=== PATIENT | male | born 1960 | race American Indian/Alaskan Native ===

== ENCOUNTER 2017-02-18 18:20 | Inpatient (IN) | payer MEDICAID ==
[2017-02-18 19:02] LABS: BASO # 0.1 K/uL (0.0-0.2); BASO % 0.7 % (0.0-2.0); EOS # 0.1 K/uL (0.0-0.7); EOS % 1.6 % (0.0-4.0); HEMATOCRIT 36.4 % (35.0-51.0); LYMPH # 1.4 K/uL (1.0-4.3); MEAN CELL VOLUME 94.1 fL (80.0-94.0); MEAN CORPUSCULAR HEMOGLOBIN 31.6 pg (27.0-31.0); MEAN CORPUSCULAR HGB CONC 33.6 g/dL (33.0-37.0); MEAN PLATELET VOLUME 9.3 fL (7.2-11.7); MONO # 0.5 K/uL (0.0-0.8); MONO % 5.9 % (0.0-10.0); NRBC % 0.1 % (0.0-2.0); RED CELL DISTRIBUTION WIDTH 13.7 % (11.5-14.5); WHITE BLOOD COUNT 9.2 K/uL (4.8-10.8)
[2017-02-18 19:12] LABS: ALKALINE PHOSPHATASE 28 U/L (38-126); ALT/SGPT 42 U/L (21-72); AST/SGOT 52 U/L (17-59); BILIRUBIN,TOTAL 2.1 mg/dL (0.2-1.3); CALCIUM 7.9 mg/dl (8.6-10.4); CARBON DIOXIDE 25 mmol/L (22-30); CHLORIDE 102 mmol/L (98-107); GFR AFRICAN-AMERICAN > 60; GLUCOSE,RANDOM 93 mg/dL (75-110); POTASSIUM 4.2 mmol/L (3.6-5.2); SODIUM 131 mmol/L (132-148)
[2017-02-18 19:23] LABS: ALB/GLOB RATIO 1.3 (1.0-2.1); BLOOD UREA NITROGEN 19 mg/dL (9-20)
--- NOTE | 2017-02-18 21:15 | C.PDOC ---
Time Seen by Provider: 02/18/17 18:42 Chief Complaint (Nursing): Chest Pain History Per: Patient, EMS Onset/Duration Of Symptoms: Hrs (1) Current Symptoms Are (Timing): Still Present Severity: Moderate Quality: Pressure, "Pain" Associated Symptoms: Dyspnea Modifying Factors: Other Indicated Below Alleviating Factors: None Recent travel outside of the [place]: No (Pt is visiting from [place]) Additional History Per: Prior Records Past Medical History Reviewed: Historical Data, Nursing Documentation, Vital Signs Vital Signs: Last Vital Signs Temp 97.8 F 02/18/17 18:31 Pulse 90 02/18/17 20:45 Resp 20 02/18/17 20:45 BP 93/53 L 02/18/17 20:45 Pulse Ox 100 02/18/17 20:45 - Medical History PMH: Asthma, Bipolar Disorder, Bronchitis, CHF (with low EF), COPD, HTN, Hypercholesterolemia Surgical History: Pacemaker (AICD) Family History: States: Unknown Family Hx - Social History Hx Tobacco Use: No (Quit) Hx Alcohol Use: No Hx Substance Use: No - Immunization History Hx Tetanus Toxoid Vaccination: No Hx Influenza Vaccination: No Hx Pneumococcal Vaccination: No Review Of Systems Except As Marked, All Systems Reviewed And Found Negative. Constitutional: Negative for: Fever Cardiovascular: Positive for: Chest Pain Respiratory: Positive for: Shortness of Breath. Negative for: Hemoptysis Gastrointestinal: Negative for: Vomiting, Abdominal Pain Musculoskeletal: Negative for: Neck Pain, Leg Pain Skin: Negative for: Rash Neurological: Negative for: Weakness, Numbness Physical Exam - Physical Exam Appears: Chronically Ill Skin: Normal Color, Warm, Dry Head: Atraumatic, Normacephalic Eye(s): bilateral: PERRL, EOMI Neck: Normal ROM, Supple Cardiovascular: Rhythm Regular Respiratory: No Accessory Muscle Use, Rales (at bases) Extremity: Normal ROM, No Calf Tenderness Neurological/Psych: Oriented x3, Normal Motor, Normal Sensation ED Course And Treatment - Laboratory Results Result Diagrams: 02/18/17 18:55 02/18/17 18:55 Interpretation Of Abnormal: Elevated BNP ECG: Interpreted By Me, Viewed By Me ECG Rhythm: Sinus Rhythm, Nonspecific Changes Rate From EC O2 Sat by Pulse Oximetry: 100 Pulse Ox Interpretation: Normal - Radiology CXR: Interpreted by Me, Viewed By Me CXR Interpretation: Yes: Cardiomegaly Progress Note: Pt is borderline hypotensive in the ED. I sent the EKG for review by Dr. Scott (Code Heart boilermaker assembly and erection), he states no STEMI. Pt was evaluated by Family Law Specialist Dr. Mcmillan in the ED and admitted to ICU. - Physician Consult Information Physician Contacted: Elo Hay (Cardio) Outcome Of Conversation: He states admit to ICU. He does not recommend starting pt on Digoxin. Progress - Interventions Interventions:: Observation, Oxygen - Medications Administered Oral: Aspirin (taken by pt prior to arrival) - Data Reviewed Data Reviewed: Lab, Diagnostic imaging, EKG, Old records - Patient Status Patient status: Unchanged - Continuity of Care Discussed patient case with:: Patient, ED Nurse, On-call PMD-pt unassigned Discussed pt. case with sharepoint consultant/specialty: Cardiology, Pulmonary/Crit. Care - Patient Plan Patient Plan: Admission, ICU Disposition Discussed With DrTashia: Rosio Reardon Comment: She accepted pt on her service. Doctor Will See Patient In The: Hospital Counseled Patient/Family Regarding: Studies Performed, Diagnosis - Disposition Disposition: HOSPITALIZED Disposition Time: 21:00 Condition: GUARDED - Clinical Impression Clinical Impression: Chest pain, Hypotension, CHF (congestive heart failure)
--- NOTE | 2017-02-18 21:17 | CP.PCM.CON ---
History of Present Illness - History of Present Illness History of Present Illness: Attending: Rosio Reardon MD Reason for Consult: Critical care management Chief Complaint: Left Chest Pain The patient was seen and examined in the ED. No family was present HPI: 56 years old male from [place] who came to [place] 2 days. He Has hx of CHF. and Low EF. He comes to the ED with a 2 hours of sudden unset of upper left chest pain radiating to the left arm. The pain is continuous and was not associated with vomiting nor diaphoresis. He also refers that prior to the chest pain, he had a sudden sharp mid back pain that is still present.He did suffer some nausea and diarrhea on the day of admission. No palpitation, nor hx of trauma. PMH: Asthma, Bipolar Disorder, Bronchitis, CHF (with low EF), COPD, HTN, HLD; Low blood pressures PSH: AICD insertion; L4-5 surgery; Rods in left leg post fracture SH: Former Smoker Quit 6 months; Quit Alcohol ingestion one year ago; He is on Disability and is visiting his family here in [place] FH: States: Unknown family hx Allergies: NKDA Medication: Reviewed Review of Systems - Constitutional Constitutional: absent: Anorexia, Fatigue, Fever, Headache - EENT Eyes: Requires Corrective Lenses. absent: Diplopia, Floaters, Sees Flashes Ears: absent: Decreased Hearing, Ear Discharge, Tinnitus Nose/Mouth/Throat: absent: Epistaxis, Nasal Congestion, Nasal Discharge, Sinus Pain, Sinus Pressure - Cardiovascular Cardiovascular: Dyspnea. absent: Chest Pain, Edema - Respiratory Respiratory: Dyspnea on Exertion. absent: Cough, Wheezing - Gastrointestinal Gastrointestinal: Diarrhea, Nausea. absent: Constipation, Vomiting - Genitourinary Genitourinary: absent: Dysuria, Flank Pain, Hematuria, Urinary Frequency - Musculoskeletal Musculoskeletal: Back Pain. absent: Myalgias, Numbness - Integumentary Integumentary: absent: Pruritus, Rash, Skin Ulcer, Sores, Striae, Swelling - Neurological Neurological: absent: Confusion, Numbness, Focal Weakness, Weakness - Psychiatric Psychiatric: absent: Anxiety, Panic Attacks Additional comments: Bipolar - Endocrine Endocrine: absent: Palpitations, Polydipsia, Polyphagia, Polyuria - Hematologic/Lymphatic Hematologic: absent: Easy Bleeding, Easy Bruising Past Patient History - Past Medical History & Family History Past Medical History?: Yes - Past Social History Smoking Status: Former Smoker Chewing Tobacco Use: No Cigar Use: No Alcohol: None Home Situation {Lives}: With Family - CARDIAC Hx Congestive Heart Failure: Yes (with low EF) Hx Hypercholesterolemia: Yes Hx Hypertension: Yes Hx Pacemaker: Yes (AICD) - PULMONARY Hx Asthma: Yes Hx Bronchitis: Yes Hx Chronic Obstructive Pulmonary Disease (COPD): Yes - NEUROLOGICAL Hx Neurological Disorder: No - HEENT Hx HEENT Problems: No - RENAL Hx Chronic Kidney Disease: No - HEMATOLOGICAL/ONCOLOGICAL Hx Blood Disorders: No - INTEGUMENTARY Hx Dermatological Problems: No - MUSCULOSKELETAL/RHEUMATOLOGICAL Hx Musculoskeletal Disorders: No - GASTROINTESTINAL Hx Gastrointestinal Disorders: No - GENITOURINARY/GYNECOLOGICAL Hx Genitourinary Disorders: No - PSYCHIATRIC Hx Bipolar Disorder: Yes Hx Substance Use: No - SURGICAL HISTORY Hx Surgeries: Yes Hx Orthopedic Surgery: Yes (RIGHT LEG) Other/Comment: PACEMAKER/DEFIB INSERTION - ANESTHESIA Hx Anesthesia: Yes Hx Anesthesia Reactions: No Meds Allergies/Adverse Reactions: Allergies Allergy/AdvReac Type Severity Reaction Status Date / Time No Known Allergies Allergy Verified 02/18/17 18:37 Physical Exam - Constitutional Appears: No Acute Distress - Head Exam Head Exam: ATRAUMATIC, NORMAL INSPECTION, NORMOCEPHALIC - Eye Exam Eye Exam: EOMI, Normal appearance Pupil Exam: NORMAL ACCOMODATION, PERRL - ENT Exam ENT Exam: Mucous Membranes Moist, Normal Exam, Normal External Ear Exam - Neck Exam Neck exam: Positive for: Full Rom, Normal Inspection. Negative for: Lymphadenopathy, Tenderness - Respiratory Exam Additional comments: Fine inspiratory rales at both bases, left more than right. - Cardiovascular Exam Cardiovascular Exam: REGULAR RHYTHM, +S1, +S2. absent: Gallop - GI/Abdominal Exam GI & Abdominal Exam: Normal Bowel Sounds, Soft. absent: Mass, Organomegaly, Tenderness - Rectal Exam Rectal Exam: Deferred - Extremities Exam Extremities exam: Positive for: full ROM, normal inspection. Negative for: calf tenderness, joint swelling, pedal edema - Back Exam Back exam: CVA tenderness (L), CVA tenderness (R), NORMAL INSPECTION - Neurological Exam Neurological exam: Alert, CN II-XII Intact, Oriented x3, Reflexes Normal - Psychiatric Exam Psychiatric exam: Normal Affect, Normal Mood - Skin Skin Exam: Intact, Normal Color, Warm Results - Vital Signs Recent Vital Signs: Last Vital Signs Temp 97.8 F 02/18/17 18:31 Pulse 90 02/18/17 20:45 Resp 20 02/18/17 20:45 BP 93/53 L 02/18/17 20:45 Pulse Ox 100 02/18/17 21:15 - Labs Result Diagrams: 02/18/17 18:55 02/18/17 18:55 Labs: Laboratory Results - last 24 hr 02/18/17 02/18/17 02/18/17 18:55 18:55 18:55 WBC 9.2 RBC 3.87 L Hgb 12.2 Hct 36.4 MCV 94.1 H MCH 31.6 H MCHC 33.6 RDW 13.7 Plt Count 161 MPV 9.3 Neut % (Auto) 76.8 H Lymph % (Auto) 15.0 L Stephenson % (Auto) 5.9 Eos % (Auto) 1.6 Baso % (Auto) 0.7 Neut # 7.0 Lymph # 1.4 Stephenson # 0.5 Eos # 0.1 Baso # 0.1 PT 11.6 INR 1.0 APTT 32 Sodium 131 L Potassium 4.2 Chloride 102 Carbon Dioxide 25 Anion Gap 9 L BUN 19 Creatinine 0.9 Est GFR ( Amer) > 60 Est GFR (Non-Af Amer) > 60 Random Glucose 93 Calcium 7.9 L Total Bilirubin 2.1 H AST 52 ALT 42 Alkaline Phosphatase 28 L Total Creatine Kinase 62 CK-MB (Mass) 1.06 Troponin I 0.0410 NT-Pro-B Natriuret Pep 2200 H Total Protein 6.0 L Albumin 3.4 L Globulin 2.6 Albumin/Globulin Ratio 1.3 Digoxin 02/18/17 18:55 WBC RBC Hgb Hct MCV MCH MCHC RDW Plt Count MPV Neut % (Auto) Lymph % (Auto) Stephenson % (Auto) Eos % (Auto) Baso % (Auto) Neut # Lymph # Stephenson # Eos # Baso # PT INR APTT Sodium Potassium Chloride Carbon Dioxide Anion Gap BUN Creatinine Est GFR ( Amer) Est GFR (Non-Af Amer) Random Glucose Calcium Total Bilirubin AST ALT Alkaline Phosphatase Total Creatine Kinase CK-MB (Mass) Troponin I NT-Pro-B Natriuret Pep Total Protein Albumin Globulin Albumin/Globulin Ratio Digoxin < 0.4 L - Impressions Impression: Sinus rhythm, 63/min - Imaging and Cardiology Chest x-ray Status: Image reviewed by me Additional comment: No infiltrate with mild cephalization Assessment & Plan - Assessment and Plan (Free Text) Assessment: #. Chest Pain #. CHF #. Hypotension #. Anemia Plan: 56 years old male from [place] who came to [place] 2 days. He Has hx of CHF. and Low EF. He comes to the ED with a 2 hours of sudden unset of upper left chest pain radiating to the left arm. The pain is continuous and was not associated with vomiting nor diaphoresis. He also refers that prior to the chest pain, he had a sudden sharp mid back pain that is still present.He did suffer some nausea and diarrhea on the day of admission. No palpitation, nor hx of trauma. #. Chest Pain which could due to ACS as patient said that he had 2 cardio cath, the first had some blockages in the coronary artery while the second time, the Cath was without significant stenosis We will r/o ACS and also r/o Aortic Dissection because of the sharp back pain and low blood pressure. - Consult Dr Hay associate professor of education - Serial Troponin - Serial EKG - ECHO for wall motion - CTA Chest - ASA - Statin - NTG #. Chronic CHF Systolic dysfunction - ECHO for EF and Chamber size - Coreg - Lisinopril - Hold Bumex #. Hypotension probably because of poor cardiac output - If needed Dobutamine would be started #. Anemia - Follow HB #. Diarrhea - Stool for C Diff - Stool for culture #. DVT Prophylaxis SCD /lovenox #. Code Status: Full - Date & Time Date: 02/18/17 Time: 21:17
[2017-02-18] MEDS ORDERED: Iodixanol 320 MG/ML 100 ML BOTTLE IV ONE (23:10)
--- NOTE | 2017-02-19 00:25 | CT ---
EXAM: CT Chest With Intravenous Contrast CLINICAL HISTORY: 56 years old, male; Pain; Chest pain; Type not specified; Additional info: Back and chest pain TECHNIQUE: Axial computed tomography images of the chest with intravenous contrast. All CT scans at this facility use one or more dose reduction techniques, viz.: automated exposure control; ma/kV adjustment per patient size (including targeted exams where dose is matched to indication; i.e. head); or iterative reconstruction technique. Coronal and sagittal reformatted images were created and reviewed. CONTRAST: 100 mL of [id number] administered intravenously. COMPARISON: No relevant prior studies available. FINDINGS: Limitations: Motion artifact - mild. Lungs: Mild compressive atelectasis right lower lobe. Mild mosaic pattern of lung parenchyma. Mild interlobular septal thickening. Pleural space: Small RIGHT pleural effusion. No pneumothorax. Heart: Mild cardiomegaly. No significant pericardial effusion. Bones/joints: Healed right rib fracture. Soft tissues: Unremarkable. Vasculature: Minimal atherosclerotic disease. No aneurysm. Lymph nodes: No pathologically enlarged lymph nodes. Gallbladder and bile ducts: Calcified gallstones. Adrenals: LEFT adrenal adenoma. Tubes, lines and devices: Left pacemaker IMPRESSION: 1. Findings compatible with mild interstitial edema. Clinical correlation is needed. 2. Incidental/non-acute findings are described above.
[2017-02-19] MEDS: Albuterol 0.083% Inhal Sol (2.5 mg/3 mL) UD INH PRN ×2 (04:20→11:40)
[2017-02-19 07:03] LABS: BASO % 0.6 % (0.0-2.0); EOS # 0.2 K/uL (0.0-0.7); EOS % 2.3 % (0.0-4.0); HEMATOCRIT 33.9 % (35.0-51.0); LYMPH # 1.3 K/uL (1.0-4.3); LYMPH % 16.9 % (20.0-40.0); MEAN CELL VOLUME 96.2 fL (80.0-94.0); MEAN CORPUSCULAR HEMOGLOBIN 32.5 pg (27.0-31.0); MEAN CORPUSCULAR HGB CONC 33.8 g/dL (33.0-37.0); MEAN PLATELET VOLUME 9.6 fL (7.2-11.7); MONO # 0.5 K/uL (0.0-0.8); MONO % 6.2 % (0.0-10.0); RED CELL DISTRIBUTION WIDTH 13.7 % (11.5-14.5)
[2017-02-19 07:19] LABS: ALB/GLOB RATIO 1.2 (1.0-2.1); ALKALINE PHOSPHATASE 26 U/L (38-126); ALT/SGPT 42 U/L (21-72); AST/SGOT 31 U/L (17-59); BILIRUBIN,TOTAL 1.6 mg/dL (0.2-1.3); BLOOD UREA NITROGEN 16 mg/dL (9-20); CALCIUM 7.9 mg/dl (8.6-10.4); CARBON DIOXIDE 25 mmol/L (22-30); CHLORIDE 100 mmol/L (98-107); GFR AFRICAN-AMERICAN > 60; GLUCOSE,RANDOM 124 mg/dL (75-110); MAGNESIUM 1.8 mg/dL (1.6-2.3); PHOSPHOROUS 3.4 mg/dL (2.5-4.5); POTASSIUM 3.8 mmol/L (3.6-5.2); SODIUM 130 mmol/L (132-148); TOTAL PROTEIN 5.6 g/dL (6.3-8.3)
--- NOTE | 2017-02-19 09:01 | RAD ---
PROCEDURE: CHEST RADIOGRAPH, 1 VIEW HISTORY: chest pain COMPARISON: None available. FINDINGS: LUNGS: The lungs are well inflated. There is ill-defined haziness in the right lower lobe. There is mild pulmonary venous congestion. PLEURA: No pneumothorax or pleural fluid seen. CARDIOVASCULAR: There is mild cardiomegaly. There is a left-sided AICD. OSSEOUS STRUCTURES: No significant abnormalities. VISUALIZED UPPER ABDOMEN: Normal. OTHER FINDINGS: None. IMPRESSION: Ill-defined haziness in the right lower lobe may represent pneumonia or pulmonary edema. Follow-up is advised. Mild cardiomegaly and pulmonary venous congestion.
--- NOTE | 2017-02-19 11:28 | CP.PCM.HP ---
History of Present Illness - History of Present Illness History of Present Illness: pt admited from ed for chest pain sob hx of cad s.pmi 2times chf pace maker still c/o of chest pain sob has copd also Present on Admission - Present on Admission Any Indicators Present on Admission: No Review of Systems - Review of Systems Systems not reviewed;Unavailable: Acuity of Condition, Unstable Vital Signs Review of Systems: bp was low Past Patient History - Past Medical History & Family History Past Medical History?: Yes - Past Social History Smoking Status: Former Smoker Chewing Tobacco Use: No Cigar Use: No Alcohol: None Home Situation {Lives}: With Family - CARDIAC Hx Congestive Heart Failure: Yes (with low EF) Hx Hypercholesterolemia: Yes Hx Hypertension: Yes Hx Pacemaker: Yes (AICD) - PULMONARY Hx Asthma: Yes Hx Bronchitis: Yes Hx Chronic Obstructive Pulmonary Disease (COPD): Yes - NEUROLOGICAL Hx Neurological Disorder: No - HEENT Hx HEENT Problems: No - RENAL Hx Chronic Kidney Disease: No - ENDOCRINE/METABOLIC Hx Endocrine Disorders: No - HEMATOLOGICAL/ONCOLOGICAL Hx Blood Disorders: No - INTEGUMENTARY Hx Dermatological Problems: No - MUSCULOSKELETAL/RHEUMATOLOGICAL Hx Musculoskeletal Disorders: No - GASTROINTESTINAL Hx Gastrointestinal Disorders: No - GENITOURINARY/GYNECOLOGICAL Hx Genitourinary Disorders: No - PSYCHIATRIC Hx Bipolar Disorder: Yes Hx Substance Use: No - SURGICAL HISTORY Hx Surgeries: Yes Hx Orthopedic Surgery: Yes (RIGHT LEG) Other/Comment: PACEMAKER/DEFIB INSERTION - ANESTHESIA Hx Anesthesia: Yes Hx Anesthesia Reactions: No Meds Allergies/Adverse Reactions: Allergies Allergy/AdvReac Type Severity Reaction Status Date / Time No Known Allergies Allergy Verified 02/18/17 18:37 Physical Exam - Constitutional Appears: In Acute Distress, Chronically Ill - Head Exam Head Exam: NORMOCEPHALIC - Eye Exam Eye Exam: Normal appearance Pupil Exam: NORMAL ACCOMODATION - ENT Exam ENT Exam: Mucous Membranes Moist - Neck Exam Neck exam: Positive for: Full Rom - Respiratory Exam Respiratory Exam: Decreased Breath Sounds - Cardiovascular Exam Cardiovascular Exam: Tachycardia, +S1, +S2, +S4 - GI/Abdominal Exam GI & Abdominal Exam: Normal Bowel Sounds - Rectal Exam Rectal Exam: NORMAL INSPECTION - Exam Exam: NORMAL INSPECTION - Extremities Exam Extremities exam: Positive for: normal inspection - Back Exam Back exam: NORMAL INSPECTION - Neurological Exam Neurological exam: Oriented x3 - Psychiatric Exam Psychiatric exam: Normal Affect - Skin Skin Exam: Normal Color Results - Vital Signs Recent Vital Signs: Last Vital Signs Temp 98.2 F 02/19/17 08:00 Pulse 91 H 02/19/17 11:00 Resp 20 02/19/17 11:00 BP 102/69 02/19/17 11:00 Pulse Ox 99 02/19/17 11:00 - Labs Result Diagrams: 02/19/17 06:50 02/19/17 06:52 Labs: Laboratory Results - last 24 hr 02/18/17 02/18/17 02/18/17 18:55 18:55 18:55 WBC 9.2 RBC 3.87 L Hgb 12.2 Hct 36.4 MCV 94.1 H MCH 31.6 H MCHC 33.6 RDW 13.7 Plt Count 161 MPV 9.3 Neut % (Auto) 76.8 H Lymph % (Auto) 15.0 L Gilliam % (Auto) 5.9 Eos % (Auto) 1.6 Baso % (Auto) 0.7 Neut # 7.0 Lymph # 1.4 Gilliam # 0.5 Eos # 0.1 Baso # 0.1 PT 11.6 INR 1.0 APTT 32 Sodium 131 L Potassium 4.2 Chloride 102 Carbon Dioxide 25 Anion Gap 9 L BUN 19 Creatinine 0.9 Est GFR ( Amer) > 60 Est GFR (Non-Af Amer) > 60 Random Glucose 93 Calcium 7.9 L Phosphorus Magnesium Total Bilirubin 2.1 H AST 52 ALT 42 Alkaline Phosphatase 28 L Total Creatine Kinase 62 CK-MB (Mass) 1.06 Troponin I 0.0410 NT-Pro-B Natriuret Pep 2200 H Total Protein 6.0 L Albumin 3.4 L Globulin 2.6 Albumin/Globulin Ratio 1.3 Digoxin 02/18/17 02/19/17 02/19/17 18:55 06:50 06:52 WBC 8.0 RBC 3.53 L Hgb 11.5 L Hct 33.9 L MCV 96.2 H D MCH 32.5 H MCHC 33.8 RDW 13.7 Plt Count 150 MPV 9.6 Neut % (Auto) 74.0 Lymph % (Auto) 16.9 L Gilliam % (Auto) 6.2 Eos % (Auto) 2.3 Baso % (Auto) 0.6 Neut # 5.9 Lymph # 1.3 Gilliam # 0.5 Eos # 0.2 Baso # 0.0 PT INR APTT Sodium 130 L Potassium 3.8 Chloride 100 Carbon Dioxide 25 Anion Gap 9 L BUN 16 Creatinine 0.8 Est GFR ( Amer) > 60 Est GFR (Non-Af Amer) > 60 Random Glucose 124 H Calcium 7.9 L Phosphorus 3.4 Magnesium 1.8 Total Bilirubin 1.6 H AST 31 ALT 42 Alkaline Phosphatase 26 L Total Creatine Kinase CK-MB (Mass) Troponin I 0.0370 NT-Pro-B Natriuret Pep Total Protein 5.6 L Albumin 3.1 L Globulin 2.5 Albumin/Globulin Ratio 1.2 Digoxin < 0.4 L Assessment & Plan - Assessment and Plan (Free Text) Assessment: ac chest pain cad ashd copd pace maked hyperglyceamia copd Plan: as per orders - Date & Time Date: 02/19/17 Time: 11:30
--- NOTE | 2017-02-19 16:11 | CP.CCUPN ---
CCU Subjective - Physician Review Events Since Last Encounter (Free Text): 02/19/17 16:11 Patient is monitoring doing well. Complaining of mild chest discomfort. Pain is radiating to the left shoulder, sometimes in the back. Blood pressure is slightly on the low side. He has no vomiting. Otherwise patient is doing okay Vital signs reviewed No neck vein distention noted Chest good air entry bilaterally, no wheezing or rales noted CVS regular heart sound, no murmur noted Abdomen soft, nontender. 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 Most likely nonspecific. Non-ST elevation AK. Congestive heart failure. Glucose monitor today. If likely stable, He can be discharged to the floor tomorrow CCU Objective - Vital Signs / Intake & Output Vital Signs (Last 4 hours): Vital Signs Pulse Resp BP Pulse Ox 02/19/17 15:00 88 20 108/60 96 02/19/17 14:00 89 20 94/67 L 98 02/19/17 13:00 91 H 20 99/72 L 98 Intake and Output (Last 8hrs): Intake & Output 02/19/17 02/19/17 02/19/17 06:59 14:59 22:59 Intake Total 750 325 0 Output Total 450 850 Balance 300 -525 0 Weight 169 lb 4 oz Intake: Oral 750 325 0 Output: Urine 450 850 Urine, Voided 450 850 Other: # Bowel Movements 0 - Medications Active Medications: Active Medications Generic Name Dose Route Start Last Admin Trade Name Freq PRN Reason Stop Dose Admin Albuterol Sulfate 2.5 mg 02/18/17 21:35 02/19/17 11:40 Albuterol 0.083% Inhal Alisha (2.5 Mg/3 Ml) Ud INH 2.5 mg Q6H PRN Administration Shortness of Breath Aspirin 81 mg 02/19/17 10:00 02/19/17 09:28 Ecotrin PO 81 mg DAILY BHANU Administration Carvedilol 6.25 mg 02/19/17 10:00 02/19/17 09:26 Coreg PO Not Given BID BHANU Folic Acid 1 mg 02/19/17 10:00 02/19/17 09:28 Folic Acid PO 1 mg DAILY BHANU Administration Lisinopril 2.5 mg 02/19/17 10:00 02/19/17 09:26 Zestril PO Not Given DAILY [facility] Morphine Sulfate 2 mg 02/19/17 09:32 02/19/17 10:35 Morphine IVP 2 mg Q6 PRN Administration Pain, moderate (4-7) Nitroglycerin 0.4 mg 02/18/17 23:39 02/19/17 15:13 Nitrostat Sl Tab SL 0.4 mg Q5M PRN Administration Other Ondansetron HCl 4 mg 02/18/17 21:50 Zofran Inj IVP Q4 PRN Nausea/Vomiting Rosuvastatin Calcium 10 mg 02/19/17 22:00 Crestor PO HS [facility] - Patient Studies Lab Studies: Lab Studies 02/19/17 02/19/17 02/18/17 Range/Units 06:52 06:50 18:55 WBC 8.0 (4.8-10.8) K/uL RBC 3.53 L (4.40-5.90) Mil/uL Hgb 11.5 L (12.0-18.0) g/dL Hct 33.9 L (35.0-51.0) % MCV 96.2 H D (80.0-94.0) fL MCH 32.5 H (27.0-31.0) pg MCHC 33.8 (33.0-37.0) g/dL RDW 13.7 (11.5-14.5) % Plt Count 150 (130-400) K/uL MPV 9.6 (7.2-11.7) fL Neut % (Auto) 74.0 (50.0-75.0) % Lymph % (Auto) 16.9 L (20.0-40.0) % [place] % (Auto) 6.2 (0.0-10.0) % Eos % (Auto) 2.3 (0.0-4.0) % Baso % (Auto) 0.6 (0.0-2.0) % Neut # 5.9 (1.8-7.0) K/uL Lymph # 1.3 (1.0-4.3) K/uL [place] # 0.5 (0.0-0.8) K/uL Eos # 0.2 (0.0-0.7) K/uL Baso # 0.0 (0.0-0.2) K/uL PT (9.7-12.2) SECONDS INR APTT (21-34) SECONDS Sodium 130 L (132-148) mmol/L Potassium 3.8 (3.6-5.2) mmol/L Chloride 100 (98-107) mmol/L Carbon Dioxide 25 (22-30) mmol/L Anion Gap 9 L (10-20) BUN 16 (9-20) mg/dL Creatinine 0.8 (0.8-1.5) mg/dL Est GFR ( Amer) > 60 Est GFR (Non-Af Amer) > 60 Random Glucose 124 H (75-110) mg/dL Calcium 7.9 L (8.6-10.4) mg/dl Phosphorus 3.4 (2.5-4.5) mg/dL Magnesium 1.8 (1.6-2.3) mg/dL Total Bilirubin 1.6 H (0.2-1.3) mg/dL AST 31 (17-59) U/L ALT 42 (21-72) U/L Alkaline Phosphatase 26 L (38-126) U/L Total Creatine Kinase (55-170) U/L CK-MB (Mass) (0.0-3.38) ng/mL Troponin I 0.0370 (0.00-0.120) ng/mL NT-Pro-B Natriuret Pep (0-900) pg/mL Total Protein 5.6 L (6.3-8.3) g/dL Albumin 3.1 L (3.5-5.0) g/dL Globulin 2.5 (2.2-3.9) gm/dL Albumin/Globulin Ratio 1.2 (1.0-2.1) Digoxin < 0.4 L (0.8-2.0) ng/mL 02/18/17 02/18/17 02/18/17 Range/Units 18:55 18:55 18:55 WBC 9.2 (4.8-10.8) K/uL RBC 3.87 L (4.40-5.90) Mil/uL Hgb 12.2 (12.0-18.0) g/dL Hct 36.4 (35.0-51.0) % MCV 94.1 H (80.0-94.0) fL MCH 31.6 H (27.0-31.0) pg MCHC 33.6 (33.0-37.0) g/dL RDW 13.7 (11.5-14.5) % Plt Count 161 (130-400) K/uL MPV 9.3 (7.2-11.7) fL Neut % (Auto) 76.8 H (50.0-75.0) % Lymph % (Auto) 15.0 L (20.0-40.0) % [place] % (Auto) 5.9 (0.0-10.0) % Eos % (Auto) 1.6 (0.0-4.0) % Baso % (Auto) 0.7 (0.0-2.0) % Neut # 7.0 (1.8-7.0) K/uL Lymph # 1.4 (1.0-4.3) K/uL [place] # 0.5 (0.0-0.8) K/uL Eos # 0.1 (0.0-0.7) K/uL Baso # 0.1 (0.0-0.2) K/uL PT 11.6 (9.7-12.2) SECONDS INR 1.0 APTT 32 (21-34) SECONDS Sodium 131 L (132-148) mmol/L Potassium 4.2 (3.6-5.2) mmol/L Chloride 102 (98-107) mmol/L Carbon Dioxide 25 (22-30) mmol/L Anion Gap 9 L (10-20) BUN 19 (9-20) mg/dL Creatinine 0.9 (0.8-1.5) mg/dL Est GFR ( Amer) > 60 Est GFR (Non-Af Amer) > 60 Random Glucose 93 (75-110) mg/dL Calcium 7.9 L (8.6-10.4) mg/dl Phosphorus (2.5-4.5) mg/dL Magnesium (1.6-2.3) mg/dL Total Bilirubin 2.1 H (0.2-1.3) mg/dL AST 52 (17-59) U/L ALT 42 (21-72) U/L Alkaline Phosphatase 28 L (38-126) U/L Total Creatine Kinase 62 (55-170) U/L CK-MB (Mass) 1.06 (0.0-3.38) ng/mL Troponin I 0.0410 (0.00-0.120) ng/mL NT-Pro-B Natriuret Pep 2200 H (0-900) pg/mL Total Protein 6.0 L (6.3-8.3) g/dL Albumin 3.4 L (3.5-5.0) g/dL Globulin 2.6 (2.2-3.9) gm/dL Albumin/Globulin Ratio 1.3 (1.0-2.1) Digoxin (0.8-2.0) ng/mL Laboratory Results - last 24 hr 02/18/17 02/18/17 02/18/17 18:55 18:55 18:55 WBC 9.2 RBC 3.87 L Hgb 12.2 Hct 36.4 MCV 94.1 H MCH 31.6 H MCHC 33.6 RDW 13.7 Plt Count 161 MPV 9.3 Neut % (Auto) 76.8 H Lymph % (Auto) 15.0 L [place] % (Auto) 5.9 Eos % (Auto) 1.6 Baso % (Auto) 0.7 Neut # 7.0 Lymph # 1.4 [place] # 0.5 Eos # 0.1 Baso # 0.1 PT 11.6 INR 1.0 APTT 32 Sodium 131 L Potassium 4.2 Chloride 102 Carbon Dioxide 25 Anion Gap 9 L BUN 19 Creatinine 0.9 Est GFR ( Amer) > 60 Est GFR (Non-Af Amer) > 60 Random Glucose 93 Calcium 7.9 L Phosphorus Magnesium Total Bilirubin 2.1 H AST 52 ALT 42 Alkaline Phosphatase 28 L Total Creatine Kinase 62 CK-MB (Mass) 1.06 Troponin I 0.0410 NT-Pro-B Natriuret Pep 2200 H Total Protein 6.0 L Albumin 3.4 L Globulin 2.6 Albumin/Globulin Ratio 1.3 Digoxin 02/18/17 02/19/17 02/19/17 18:55 06:50 06:52 WBC 8.0 RBC 3.53 L Hgb 11.5 L Hct 33.9 L MCV 96.2 H D MCH 32.5 H MCHC 33.8 RDW 13.7 Plt Count 150 MPV 9.6 Neut % (Auto) 74.0 Lymph % (Auto) 16.9 L [place] % (Auto) 6.2 Eos % (Auto) 2.3 Baso % (Auto) 0.6 Neut # 5.9 Lymph # 1.3 [place] # 0.5 Eos # 0.2 Baso # 0.0 PT INR APTT Sodium 130 L Potassium 3.8 Chloride 100 Carbon Dioxide 25 Anion Gap 9 L BUN 16 Creatinine 0.8 Est GFR ( Amer) > 60 Est GFR (Non-Af Amer) > 60 Random Glucose 124 H Calcium 7.9 L Phosphorus 3.4 Magnesium 1.8 Total Bilirubin 1.6 H AST 31 ALT 42 Alkaline Phosphatase 26 L Total Creatine Kinase CK-MB (Mass) Troponin I 0.0370 NT-Pro-B Natriuret Pep Total Protein 5.6 L Albumin 3.1 L Globulin 2.5 Albumin/Globulin Ratio 1.2 Digoxin < 0.4 L EKG/Cardiology Studies: Cardiology / EKG Studies 02/18/17 18:34 EKG [ELECTROCARDIOGRAM] Stat Comment: Mode Of Transportation: PORTABLE Reason For Exam: Chest Pain 02/18/17 21:47 EKG [ELECTROCARDIOGRAM] Stat Comment: Mode Of Transportation: PORTABLE Reason For Exam: Chest Pain 02/19/17 07:30 EKG [ELECTROCARDIOGRAM] Routine Comment: Mode Of Transportation: PORTABLE Reason For Exam: Chest pain Critical Care Progress Note - Nutrition Nutrition: Nutrition Category Date Time Status Heart Healthy Diet [DIET] Diets 02/18/17 Breakfast Active
[2017-02-19 17:27] LABS: TROPONIN I 0.03 ng/mL (0.00-0.120)
[2017-02-20] MEDS: Albuterol 0.083% Inhal Sol (2.5 mg/3 mL) UD INH PRN ×2 (01:31→23:43)
--- NOTE | 2017-02-20 11:13 | CP.PCM.PN ---
Subjective - Date & Time of Evaluation Date of Evaluation: 02/20/17 Time of Evaluation: 11:10 - Subjective Subjective: has chest pain today bp low Objective - Vital Signs/Intake and Output Vital Signs (last 24 hours): Temp Pulse Resp BP Pulse Ox 97.8 F 75 16 87/57 L 100 02/20/17 08:00 02/20/17 10:01 02/20/17 10:01 02/20/17 10:01 02/20/17 10:01 Intake and Output: 02/20/17 02/20/17 06:59 18:59 Intake Total 1410 Output Total 2400 300 Balance -990 -300 - Medications Medications: Current Medications Albuterol Sulfate (Albuterol 0.083% Inhal Alisha (2.5 Mg/3 Ml) Ud) 2.5 mg INH Q6H PRN PRN Reason: Shortness of Breath Last Admin: 02/20/17 01:31 Dose: 2.5 mg Aspirin (Ecotrin) 81 mg PO DAILY [facility] Last Admin: 02/20/17 10:27 Dose: 81 mg Carvedilol (Coreg) 6.25 mg PO BID [facility] Last Admin: 02/20/17 10:28 Dose: Not Given Folic Acid (Folic Acid) 1 mg PO DAILY [facility] Last Admin: 02/20/17 10:27 Dose: 1 mg Heparin Sodium (Porcine) (Heparin) 5,000 units SC Q12H [facility] Last Admin: 02/20/17 10:27 Dose: 5,000 units Lisinopril (Zestril) 2.5 mg PO DAILY [facility] Last Admin: 02/20/17 10:27 Dose: Not Given Morphine Sulfate (Morphine) 2 mg IVP Q6 PRN PRN Reason: Pain, moderate (4-7) Last Admin: 02/20/17 07:51 Dose: 2 mg Nitroglycerin (Nitrostat Sl Tab) 0.4 mg SL Q5M PRN PRN Reason: Other Last Admin: 02/19/17 15:13 Dose: 0.4 mg Ondansetron HCl (Zofran Inj) 4 mg IVP Q4 PRN PRN Reason: Nausea/Vomiting Rosuvastatin Calcium (Crestor) 10 mg PO HS [facility] Last Admin: 02/19/17 21:46 Dose: 10 mg - Labs Labs: 02/19/17 06:50 02/19/17 06:52 PT 11.6 SECONDS (9.7-12.2) 02/18/17 18:55 INR 1.0 02/18/17 18:55 APTT 32 SECONDS (21-34) 02/18/17 18:55 - Constitutional Appears: Non-toxic - Head Exam Head Exam: NORMAL INSPECTION - Eye Exam Eye Exam: Normal appearance Pupil Exam: NORMAL ACCOMODATION - ENT Exam ENT Exam: Normal Exam - Neck Exam Neck Exam: Full ROM - Respiratory Exam Respiratory Exam: Clear to Ausculation Bilateral - Cardiovascular Exam Cardiovascular Exam: REGULAR RHYTHM, +S1, +S2, +S4 - GI/Abdominal Exam GI & Abdominal Exam: Normal Bowel Sounds - Rectal Exam Rectal Exam: NORMAL INSPECTION - Exam Exam: NORMAL INSPECTION External exam: NORMAL EXTERNAL EXAM - Extremities Exam Extremities Exam: Normal Inspection - Back Exam Back Exam: NORMAL INSPECTION - Neurological Exam Neurological Exam: Awake, Normal Gait, Oriented x3 - Psychiatric Exam Psychiatric exam: Normal Affect - Skin Skin Exam: Normal Color Assessment and Plan - Assessment and Plan (Free Text) Assessment: chest pain cad s/p mi in the past chf ashd hypotension Plan: cont as oer orders
--- NOTE | 2017-02-20 14:23 | CP.PCM.CON ---
History of Present Illness - History of Present Illness History of Present Illness: 56 B.M WITH H/O CARDIOMYOPATHY ADMITTED WITH ATYPICAL CP WITH N TNI AND NO ACUTE CHANGES IN EKG 2 YEARS AGO CATH ; [place] ; NONSIGNIFICANT CAD WITH LV EF 15 % CA 2013 , NOT SURE OF CAD DISEASE P/E NO RALES OR MURMUR /OR GALLOP IT APPEARS PT HAS IDIOPATHIC CARDIOMYOPATHY WITH NON SIG CAD PLAN FIRST OBTAIN CATH REPORT ECHO MAY NEED IV LEXISCAN Past Patient History - Past Medical History & Family History Past Medical History?: Yes - Past Social History Smoking Status: Former Smoker Chewing Tobacco Use: No Cigar Use: No Alcohol: None Home Situation {Lives}: With Family - CARDIAC Hx Congestive Heart Failure: Yes (with low EF) Hx Hypercholesterolemia: Yes Hx Hypertension: Yes Hx Pacemaker: Yes (AICD) - PULMONARY Hx Asthma: Yes Hx Bronchitis: Yes Hx Chronic Obstructive Pulmonary Disease (COPD): Yes - NEUROLOGICAL Hx Neurological Disorder: No - HEENT Hx HEENT Problems: No - RENAL Hx Chronic Kidney Disease: No - ENDOCRINE/METABOLIC Hx Endocrine Disorders: No - HEMATOLOGICAL/ONCOLOGICAL Hx Blood Disorders: No - INTEGUMENTARY Hx Dermatological Problems: No - MUSCULOSKELETAL/RHEUMATOLOGICAL Hx Musculoskeletal Disorders: No - GASTROINTESTINAL Hx Gastrointestinal Disorders: No - GENITOURINARY/GYNECOLOGICAL Hx Genitourinary Disorders: No - PSYCHIATRIC Hx Bipolar Disorder: Yes Hx Substance Use: No - SURGICAL HISTORY Hx Surgeries: Yes Hx Orthopedic Surgery: Yes (RIGHT LEG) Other/Comment: PACEMAKER/DEFIB INSERTION - ANESTHESIA Hx Anesthesia: Yes Hx Anesthesia Reactions: No Meds Allergies/Adverse Reactions: Allergies Allergy/AdvReac Type Severity Reaction Status Date / Time No Known Allergies Allergy Verified 02/18/17 18:37 - Medications Medications: Current Medications Albuterol Sulfate (Albuterol 0.083% Inhal Alisha (2.5 Mg/3 Ml) Ud) 2.5 mg INH Q6H PRN PRN Reason: Shortness of Breath Last Admin: 02/20/17 01:31 Dose: 2.5 mg Aspirin (Ecotrin) 81 mg PO DAILY [facility] Last Admin: 02/20/17 10:27 Dose: 81 mg Carvedilol (Coreg) 6.25 mg PO BID [facility] Last Admin: 02/20/17 10:28 Dose: Not Given Folic Acid (Folic Acid) 1 mg PO DAILY [facility] Last Admin: 02/20/17 10:27 Dose: 1 mg Guaifenesin (Robitussin) 100 mg PO Q6H PRN PRN Reason: Cough Heparin Sodium (Porcine) (Heparin) 5,000 units SC Q12H [facility] Last Admin: 02/20/17 10:27 Dose: 5,000 units Lisinopril (Zestril) 2.5 mg PO DAILY [facility] Last Admin: 02/20/17 10:27 Dose: Not Given Morphine Sulfate (Morphine) 2 mg IVP Q6 PRN PRN Reason: Pain, moderate (4-7) Last Admin: 02/20/17 07:51 Dose: 2 mg Nitroglycerin (Nitrostat Sl Tab) 0.4 mg SL Q5M PRN PRN Reason: Other Last Admin: 02/19/17 15:13 Dose: 0.4 mg Ondansetron HCl (Zofran Inj) 4 mg IVP Q4 PRN PRN Reason: Nausea/Vomiting Rosuvastatin Calcium (Crestor) 10 mg PO HS [facility] Last Admin: 02/19/17 21:46 Dose: 10 mg Results - Vital Signs Recent Vital Signs: Last Vital Signs Temp 97.2 F L 02/20/17 12:00 Pulse 85 02/20/17 13:00 Resp 18 02/20/17 13:00 BP 93/66 L 02/20/17 13:00 Pulse Ox 98 02/20/17 13:00 - Labs Result Diagrams: 02/19/17 06:50 02/19/17 06:52 Labs: Laboratory Results - last 24 hr 02/19/17 17:06 Total Creatine Kinase 42 L CK-MB (Mass) 0.46 Troponin I 0.0300
[2017-02-20] MEDS: guaiFENesin 100 mg/5 ml Syrup UD PO PRN (16:25)
--- NOTE | 2017-02-20 17:25 | CP.CCUPN ---
CCU Subjective - Physician Review Events Since Last Encounter (Free Text): 02/20/17 17:25 Patient is monitoring doing well. Complaining of mild chest discomfort. Pain is radiating to the left shoulder, sometimes in the back. Blood pressure is slightly on the low side. He has no vomiting. Otherwise patient is doing okay Vital signs reviewed No neck vein distention noted Chest good air entry bilaterally, no wheezing or rales noted CVS regular heart sound, no murmur noted Abdomen soft, nontender. Extremities no pedal edema CARDIOVASCULAR TECHNOLOGIST alert awake oriented -3, no functional neurological deficit Labs reviewed Mild elevation of the troponin Patient also has a AICD Ejection fraction is on the low side Assessment and recommendation: 56 male with a history of congestive heart failure ejection fraction admitted with chest pain. Most likely nonspecific. Non-ST elevation [place]. Congestive heart failure. Glucose monitor today. CCU Objective - Vital Signs / Intake & Output Vital Signs (Last 4 hours): Vital Signs Temp Pulse Resp BP Pulse Ox 02/20/17 16:00 97.5 F L 82 20 98 02/20/17 15:53 76 12 101/69 02/20/17 15:18 76 97 02/20/17 14:55 80 93/54 L 100 02/20/17 14:01 84 17 83/59 L 02/20/17 14:00 81 22 Intake and Output (Last 8hrs): Intake & Output 02/20/17 02/20/17 02/20/17 06:59 14:59 22:59 Intake Total 630 720 100 Output Total 1700 800 225 Balance -1070 -80 -125 Weight 172 lb 8 oz Intake: Oral 630 720 100 Output: Urine 1700 800 225 Urine, Voided 1700 800 225 Other: # Voids Urine, Voided 1 1 - Medications Active Medications: Active Medications Generic Name Dose Route Start Last Admin Trade Name Freq PRN Reason Stop Dose Admin Albuterol Sulfate 2.5 mg 02/18/17 21:35 02/20/17 01:31 Albuterol 0.083% Inhal Alisha (2.5 Mg/3 Ml) Ud INH 2.5 mg Q6H PRN Administration Shortness of Breath Aspirin 81 mg 02/19/17 10:00 02/20/17 10:27 Ecotrin PO 81 mg DAILY BHANU Administration Carvedilol 6.25 mg 02/19/17 10:00 02/20/17 10:28 Coreg PO Not Given BID [facility] Folic Acid 1 mg 02/19/17 10:00 02/20/17 10:27 Folic Acid PO 1 mg DAILY BHANU Administration Guaifenesin 100 mg 02/20/17 11:13 02/20/17 16:25 Robitussin PO 100 mg Q6H PRN Administration Cough Heparin Sodium (Porcine) 5,000 units 02/19/17 22:00 02/20/17 10:27 Heparin SC 5,000 units Q12H BHANU Administration Lisinopril 2.5 mg 02/19/17 10:00 02/20/17 10:27 Zestril PO Not Given DAILY [facility] Morphine Sulfate 2 mg 02/19/17 09:32 02/20/17 07:51 Morphine IVP 2 mg Q6 PRN Administration Pain, moderate (4-7) Nitroglycerin 0.4 mg 02/18/17 23:39 02/20/17 16:42 Nitrostat Sl Tab SL 0.4 mg Q5M PRN Administration Other Ondansetron HCl 4 mg 02/18/17 21:50 Zofran Inj IVP Q4 PRN Nausea/Vomiting Rosuvastatin Calcium 10 mg 02/19/17 22:00 02/19/17 21:46 Crestor PO 10 mg HS BHANU Administration - Patient Studies Lab Studies: Microbiology Studies 02/18/17 Unknown MRSA Culture (Admit) - Final [place] MRSA NOT DETECTED Lab Studies 02/19/17 Range/Units 17:06 CK-MB (Mass) 0.46 (0.0-3.38) ng/mL Troponin I 0.0300 (0.00-0.120) ng/mL Laboratory Results - last 24 hr 02/19/17 17:06 CK-MB (Mass) 0.46 Troponin I 0.0300 Critical Care Progress Note - Nutrition Nutrition: Nutrition Category Date Time Status Heart Healthy Diet [DIET] Diets 02/18/17 Breakfast Active
[2017-02-20] MEDS ORDERED: Sacubitril/Valsartan 24-26mg Tab PO SCH (18:00)
[2017-02-20] MEDS: Ranolazine 500 mg Extended Release Tablets PO SCH (18:04)
[2017-02-20] MEDS: Sacubitril/Valsartan 24-26mg Tab PO SCH (18:07)
[2017-02-20 18:38] LABS: TROPONIN I 0.03 ng/mL (0.00-0.120)
[2017-02-21 03:25] LABS: BASO # 0.1 K/uL (0.0-0.2); BASO % 1.3 % (0.0-2.0); EOS # 0.3 K/uL (0.0-0.7); HEMATOCRIT 38.9 % (35.0-51.0); LYMPH # 1.7 K/uL (1.0-4.3); LYMPH % 22.8 % (20.0-40.0); MEAN CELL VOLUME 94.9 fL (80.0-94.0); MEAN CORPUSCULAR HEMOGLOBIN 31.8 pg (27.0-31.0); MEAN CORPUSCULAR HGB CONC 33.5 g/dL (33.0-37.0); MEAN PLATELET VOLUME 8.7 fL (7.2-11.7); MONO # 0.6 K/uL (0.0-0.8); MONO % 8.4 % (0.0-10.0); RED CELL DISTRIBUTION WIDTH 14.2 % (11.5-14.5); WHITE BLOOD COUNT 7.6 K/uL (4.8-10.8)
[2017-02-21 03:50] LABS: TROPONIN I 0.031 ng/mL (0.00-0.120)
[2017-02-21 03:51] LABS: ALB/GLOB RATIO 1.2 (1.0-2.1); ALKALINE PHOSPHATASE 28 U/L (38-126); ALT/SGPT 39 U/L (21-72); AST/SGOT 27 U/L (17-59); BILIRUBIN,TOTAL 1.2 mg/dL (0.2-1.3); BLOOD UREA NITROGEN 16 mg/dL (9-20); CALCIUM 8.1 mg/dl (8.6-10.4); CARBON DIOXIDE 22 mmol/L (22-30); CHLORIDE 105 mmol/L (98-107); GFR AFRICAN-AMERICAN > 60; GLUCOSE,RANDOM 91 mg/dL (75-110); MAGNESIUM 1.8 mg/dL (1.6-2.3); PHOSPHOROUS 3.7 mg/dL (2.5-4.5); POTASSIUM 4.7 mmol/L (3.6-5.2); SODIUM 131 mmol/L (132-148); TOTAL PROTEIN 6.1 g/dL (6.3-8.3)
[2017-02-21] MEDS: Albuterol 0.083% Inhal Sol (2.5 mg/3 mL) UD INH PRN ×2 (07:50→13:12)
[2017-02-21] MEDS: Sacubitril/Valsartan 24-26mg Tab PO SCH ×2 (09:49→17:53)
[2017-02-21] MEDS: Ranolazine 500 mg Extended Release Tablets PO SCH ×2 (09:49→17:52)
[2017-02-21] MEDS: guaiFENesin 100 mg/5 ml Syrup UD PO PRN (09:50)
[2017-02-21 11:05] LABS: TROPONIN I 0.025 ng/mL (0.00-0.120)
--- NOTE | 2017-02-21 11:16 | CP.PCM.PN ---
Subjective - Date & Time of Evaluation Date of Evaluation: 02/21/17 Time of Evaluation: 11:13 - Subjective Subjective: oob in chaire[place] earlier chest discomfort relefed by 2nitro tablet now feels fine some sob Objective - Vital Signs/Intake and Output Vital Signs (last 24 hours): Temp Pulse Resp BP Pulse Ox 97.9 F 83 18 101/69 97 02/21/17 08:00 02/21/17 09:00 02/21/17 09:00 02/21/17 09:01 02/21/17 09:00 Intake and Output: 02/21/17 02/21/17 06:59 18:59 Intake Total 170 240 Output Total 900 200 Balance -730 40 - Medications Medications: Current Medications Albuterol Sulfate (Albuterol 0.083% Inhal Alisha (2.5 Mg/3 Ml) Ud) 2.5 mg INH Q6H PRN PRN Reason: Shortness of Breath Last Admin: 02/21/17 07:50 Dose: 2.5 mg Aspirin (Ecotrin) 81 mg PO DAILY [facility] Last Admin: 02/21/17 09:49 Dose: 81 mg Carvedilol (Coreg) 6.25 mg PO BID [facility] Last Admin: 02/21/17 09:49 Dose: 6.25 mg Folic Acid (Folic Acid) 1 mg PO DAILY [facility] Last Admin: 02/21/17 09:49 Dose: 1 mg Guaifenesin (Robitussin) 100 mg PO Q6H PRN PRN Reason: Cough Last Admin: 02/21/17 09:50 Dose: 100 mg Heparin Sodium (Porcine) (Heparin) 5,000 units SC Q12H [facility] Last Admin: 02/21/17 09:50 Dose: 5,000 units Ibuprofen (Motrin Tab) 600 mg PO TID [facility] Last Admin: 02/21/17 09:49 Dose: 600 mg Morphine Sulfate (Morphine) 2 mg IVP Q6 PRN PRN Reason: Pain, moderate (4-7) Last Admin: 02/20/17 07:51 Dose: 2 mg Nitroglycerin (Nitrostat Sl Tab) 0.4 mg SL Q5M PRN PRN Reason: Other Last Admin: 02/21/17 06:49 Dose: 0.4 mg Ondansetron HCl (Zofran Inj) 4 mg IVP Q4 PRN PRN Reason: Nausea/Vomiting Ranolazine (Ranexa) 500 mg PO BID [facility] Last Admin: 02/21/17 09:49 Dose: 500 mg Rosuvastatin Calcium (Crestor) 10 mg PO HS [facility] Last Admin: 02/20/17 21:19 Dose: 10 mg Sacubitril/Valsartan (Entresto 24 Mg-26 Mg) 1 tab PO BID [facility] Last Admin: 02/21/17 09:49 Dose: 1 tab - Labs Labs: 02/21/17 03:21 02/21/17 03:21 PT 11.6 SECONDS (9.7-12.2) 02/18/17 18:55 INR 1.0 02/18/17 18:55 APTT 32 SECONDS (21-34) 02/18/17 18:55 - Constitutional Appears: Non-toxic - Head Exam Head Exam: NORMAL INSPECTION - Eye Exam Eye Exam: Normal appearance Pupil Exam: NORMAL ACCOMODATION - ENT Exam ENT Exam: Mucous Membranes Moist - Respiratory Exam Respiratory Exam: Decreased Breath Sounds - Cardiovascular Exam Cardiovascular Exam: REGULAR RHYTHM, +S1, +S2, +S4 - GI/Abdominal Exam GI & Abdominal Exam: Normal Bowel Sounds - Back Exam Back Exam: NORMAL INSPECTION - Neurological Exam Neurological Exam: Normal Gait - Psychiatric Exam Psychiatric exam: Normal Affect - Skin Skin Exam: Abrasion Assessment and Plan - Assessment and Plan (Free Text) Assessment: ac chest pain cad improving chf ashd s/p c arythma icd Plan: cont as per icu orders
--- NOTE | 2017-02-21 12:18 | CARD ---
APPROVED REPORT EKG Measurement Heart [id number] <Conclusion> Normal sinus rhythm with sinus arrhythmia Left anterior fascicular block Septal infarct, age undetermined Abnormal ECG
--- NOTE | 2017-02-21 12:18 | CARD ---
APPROVED REPORT EKG Measurement Heart [id number] QT0T0 QTc0 <Conclusion> No QRS complexes found, no ECG analysis possible
--- NOTE | 2017-02-21 13:35 | CP.CCUPN ---
<Anahy Cassidy - Last Filed: 02/21/17 16:47> CCU Subjective - Physician Review Subjective (Free Text): 02/21/17 13:29 Patient seen and examined at bedside. He currently complains of chest pain rated 4/10. He states his pain was initially a 9/10 this morning, but went down to a 6/10 with Nitroglycerin. Associated with shortness of breath that feels similar to when he has a CHF exacerbation. Denies abdominal pain, nausea, vomiting, diarrhea, leg swelling, calf pain, headache. CCU Objective - Vital Signs / Intake & Output Vital Signs (Last 4 hours): Vital Signs Temp Pulse Resp BP Pulse Ox 02/21/17 12:00 97.6 F 72 18 93/62 L 100 02/21/17 11:00 93/62 L 02/21/17 10:01 79 20 96/68 L 97 02/21/17 10:00 80 22 99 Intake and Output (Last 8hrs): Intake & Output 02/20/17 02/21/17 02/21/17 22:59 06:59 14:59 Intake Total 460 50 240 Output Total 525 600 200 Balance -65 -550 40 Weight 167 lb 4.8 oz Intake: Oral 460 50 240 Output: Urine 525 600 200 Urine, Voided 525 600 200 Other: # Voids Urine, Voided 1 1 1 - Medications Active Medications: Active Medications Generic Name Dose Route Start Last Admin Trade Name Freq PRN Reason Stop Dose Admin Albuterol Sulfate 2.5 mg 02/18/17 21:35 02/21/17 13:12 Albuterol 0.083% Inhal Alisha (2.5 Mg/3 Ml) Ud INH 2.5 mg Q6H PRN Administration Shortness of Breath Aspirin 81 mg 02/19/17 10:00 02/21/17 09:49 Ecotrin PO 81 mg DAILY BHANU Administration Carvedilol 6.25 mg 02/21/17 09:40 02/21/17 09:49 Coreg PO 6.25 mg BID BHANU Administration Folic Acid 1 mg 02/19/17 10:00 02/21/17 09:49 Folic Acid PO 1 mg DAILY BHANU Administration Guaifenesin 100 mg 02/20/17 11:13 02/21/17 09:50 Robitussin PO 100 mg Q6H PRN Administration Cough Heparin Sodium (Porcine) 5,000 units 02/19/17 22:00 02/21/17 09:50 Heparin SC 5,000 units Q12H BHANU Administration Ibuprofen 600 mg 02/20/17 18:00 02/21/17 09:49 Motrin Tab PO 600 mg TID BHANU Administration Morphine Sulfate 2 mg 02/19/17 09:32 02/20/17 07:51 Morphine IVP 2 mg Q6 PRN Administration Pain, moderate (4-7) Nitroglycerin 0.4 mg 02/18/17 23:39 02/21/17 06:49 Nitrostat Sl Tab SL 0.4 mg Q5M PRN Administration Other Ondansetron HCl 4 mg 02/18/17 21:50 Zofran Inj IVP Q4 PRN Nausea/Vomiting Ranolazine 500 mg 02/20/17 18:00 02/21/17 09:49 Ranexa PO 500 mg BID BHANU Administration Rosuvastatin Calcium 10 mg 02/19/17 22:00 02/20/17 21:19 Crestor PO 10 mg HS BHANU Administration Sacubitril/Valsartan 1 tab 02/20/17 18:00 02/21/17 09:49 Entresto 24 Mg-26 Mg PO 1 tab BID BHANU Administration - Patient Studies Lab Studies: Microbiology Studies 02/18/17 Unknown MRSA Culture (Admit) - Final Naris MRSA NOT DETECTED Lab Studies 02/21/17 02/21/17 02/21/17 Range/Units 10:32 03:21 03:21 WBC (4.8-10.8) K/uL RBC (4.40-5.90) Mil/uL Hgb (12.0-18.0) g/dL Hct (35.0-51.0) % MCV (80.0-94.0) fL MCH (27.0-31.0) pg MCHC (33.0-37.0) g/dL RDW (11.5-14.5) % Plt Count (130-400) K/uL MPV (7.2-11.7) fL Neut % (Auto) (50.0-75.0) % Lymph % (Auto) (20.0-40.0) % [place] % (Auto) (0.0-10.0) % Eos % (Auto) (0.0-4.0) % Baso % (Auto) (0.0-2.0) % Neut # (1.8-7.0) K/uL Lymph # (1.0-4.3) K/uL [place] # (0.0-0.8) K/uL Eos # (0.0-0.7) K/uL Baso # (0.0-0.2) K/uL Sodium 131 L (132-148) mmol/L Potassium 4.7 (3.6-5.2) mmol/L Chloride 105 (98-107) mmol/L Carbon Dioxide 22 (22-30) mmol/L Anion Gap 9 L (10-20) BUN 16 (9-20) mg/dL Creatinine 1.0 (0.8-1.5) mg/dL Est GFR ( Amer) > 60 Est GFR (Non-Af Amer) > 60 Random Glucose 91 (75-110) mg/dL Calcium 8.1 L (8.6-10.4) mg/dl Phosphorus 3.7 (2.5-4.5) mg/dL Magnesium 1.8 (1.6-2.3) mg/dL Total Bilirubin 1.2 (0.2-1.3) mg/dL AST 27 (17-59) U/L ALT 39 (21-72) U/L Alkaline Phosphatase 28 L (38-126) U/L Total Creatine Kinase 41 L 39 L (55-170) U/L CK-MB (Mass) 0.67 1.31 (0.0-3.38) ng/mL Troponin I 0.0250 0.0310 (0.00-0.120) ng/mL Total Protein 6.1 L (6.3-8.3) g/dL Albumin 3.4 L (3.5-5.0) g/dL Globulin 2.8 (2.2-3.9) gm/dL Albumin/Globulin Ratio 1.2 (1.0-2.1) 02/21/17 02/20/17 Range/Units 03:21 18:11 WBC 7.6 (4.8-10.8) K/uL RBC 4.10 L (4.40-5.90) Mil/uL Hgb 13.0 (12.0-18.0) g/dL Hct 38.9 (35.0-51.0) % MCV 94.9 H (80.0-94.0) fL MCH 31.8 H (27.0-31.0) pg MCHC 33.5 (33.0-37.0) g/dL RDW 14.2 (11.5-14.5) % Plt Count 171 (130-400) K/uL MPV 8.7 (7.2-11.7) fL Neut % (Auto) 63.5 (50.0-75.0) % Lymph % (Auto) 22.8 (20.0-40.0) % [place] % (Auto) 8.4 (0.0-10.0) % Eos % (Auto) 4.0 (0.0-4.0) % Baso % (Auto) 1.3 (0.0-2.0) % Neut # 4.8 (1.8-7.0) K/uL Lymph # 1.7 (1.0-4.3) K/uL [place] # 0.6 (0.0-0.8) K/uL Eos # 0.3 (0.0-0.7) K/uL Baso # 0.1 (0.0-0.2) K/uL Sodium (132-148) mmol/L Potassium (3.6-5.2) mmol/L Chloride (98-107) mmol/L Carbon Dioxide (22-30) mmol/L Anion Gap (10-20) BUN (9-20) mg/dL Creatinine (0.8-1.5) mg/dL Est GFR ( Amer) Est GFR (Non-Af Amer) Random Glucose (75-110) mg/dL Calcium (8.6-10.4) mg/dl Phosphorus (2.5-4.5) mg/dL Magnesium (1.6-2.3) mg/dL Total Bilirubin (0.2-1.3) mg/dL AST (17-59) U/L ALT (21-72) U/L Alkaline Phosphatase (38-126) U/L Total Creatine Kinase 38 L (55-170) U/L CK-MB (Mass) 0.61 (0.0-3.38) ng/mL Troponin I 0.0300 (0.00-0.120) ng/mL Total Protein (6.3-8.3) g/dL Albumin (3.5-5.0) g/dL Globulin (2.2-3.9) gm/dL Albumin/Globulin Ratio (1.0-2.1) Laboratory Results - last 24 hr 02/20/17 02/21/17 02/21/17 18:11 03:21 03:21 WBC 7.6 RBC 4.10 L Hgb 13.0 Hct 38.9 MCV 94.9 H MCH 31.8 H MCHC 33.5 RDW 14.2 Plt Count 171 MPV 8.7 Neut % (Auto) 63.5 Lymph % (Auto) 22.8 [place] % (Auto) 8.4 Eos % (Auto) 4.0 Baso % (Auto) 1.3 Neut # 4.8 Lymph # 1.7 [place] # 0.6 Eos # 0.3 Baso # 0.1 Sodium 131 L Potassium 4.7 Chloride 105 Carbon Dioxide 22 Anion Gap 9 L BUN 16 Creatinine 1.0 Est GFR ( Amer) > 60 Est GFR (Non-Af Amer) > 60 Random Glucose 91 Calcium 8.1 L Phosphorus 3.7 Magnesium 1.8 Total Bilirubin 1.2 AST 27 ALT 39 Alkaline Phosphatase 28 L Total Creatine Kinase 38 L CK-MB (Mass) 0.61 Troponin I 0.0300 Total Protein 6.1 L Albumin 3.4 L Globulin 2.8 Albumin/Globulin Ratio 1.2 02/21/17 02/21/17 03:21 10:32 WBC RBC Hgb Hct MCV MCH MCHC RDW Plt Count MPV Neut % (Auto) Lymph % (Auto) [place] % (Auto) Eos % (Auto) Baso % (Auto) Neut # Lymph # [place] # Eos # Baso # Sodium Potassium Chloride Carbon Dioxide Anion Gap BUN Creatinine Est GFR ( Amer) Est GFR (Non-Af Amer) Random Glucose Calcium Phosphorus Magnesium Total Bilirubin AST ALT Alkaline Phosphatase Total Creatine Kinase 39 L 41 L CK-MB (Mass) 1.31 0.67 Troponin I 0.0310 0.0250 Total Protein Albumin Globulin Albumin/Globulin Ratio EKG/Cardiology Studies: Cardiology / EKG Studies 02/20/17 17:32 EKG [ELECTROCARDIOGRAM] Routine Comment: PLEASE OBTAIN EKG DURING CP Mode Of Transportation: Reason For Exam: CP EKG [ELECTROCARDIOGRAM] Routine Comment: PLEASE OBTAIN EKG IF CP REQUIRING NTG ONCE IN 24 H Mode Of Transportation: Reason For Exam: CP 02/21/17 06:35 EKG [ELECTROCARDIOGRAM] Stat Comment: Mode Of Transportation: Reason For Exam: chest pain Review of Systems - Review of Systems All systems: reviewed and no additional remarkable complaints except (as per HPI ) Critical Care Progress Note - Nutrition Nutrition: Nutrition Category Date Time Status Heart Healthy Diet [DIET] Diets 02/18/17 Breakfast Active Assessment/Plan - Assessment and Plan (Free Text) Assessment: 56 year old male with history of CHF with low EF (15%, as per patient), CAD with AICD placed in March 2016, COPD, HTN, HLD, asthma who was admitted for complaints of chest pain that radiates to left arm and shortness of breath. AICD was reportedly placed by Dr. Herberth Fontana at [facility] in Mar 2016. Plan: Disposition: Plan for transfer to telemetry pending Dr. Hay Cardiovascular: CHF with low EF Pro BNP 2200 NSTEMI Troponins 02/18 0.0410 02/18 0.0370 02/19 0.0300 02/20 0.0300 02/21 0.0310 0.0250 Hx of CAD, AICD placed Mar [address] [place] [address] Herberth Fontana at [facility]. AICD last checked in April 2016. 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 HR 82 BP 93/62 ASA 81mg PO daily Coreg 6.25mg PO BID Heparin 5000 units SC Q 12 Morphine 2mg IVP Q6 PRN for pain Nitroglycerin 0.4mg SL Q5 mins PRN chest pain Zofran 4mg IVP Q4 PRN nausea Ranexa 500mg PO BID Entresto 24-26mg 1 tab PO BID Crestor 10mg PO HS Ibuprofen 600mg PO TID 02/18 PT 11.6 INR 1.0 APTT 32 02/18 Digoxin level < 0.4 Heart healthy diet ECHO pending Pulmonary Dyspnea, hx of COPD RR 20 O2 sat 97% on RA Albuterol Q 6 Guaifenesin 100mg PO Q6 PRN cough CXR 02/18/17: Ill-defined haziness in the right lower lobe may represent pneumonia or pulmonary edema. Follow-up is advised. Mild cardiomegaly and pulmonary venous congestion. Chest CT 02/18/17 IMPRESSION: 1. Findings compatible with mild interstitial edema. Clinical correlation is needed. 2. Right lower lobe atelectasis. Superimposed pneumonia not excluded. 3. Incidental/non-acute findings are described above. Fluids, electrolytes, nutrition Na 131 K 4.7 Cl 105 HCO3 22 BUN 16 Cr 1.0 Ca 8.1 Total protein 6.1 Albumin 3.4 Input 1230 Output 1925 Balance -695ml Heart healthy diet Prophylaxis: DVTs: SCDs, Heparin 5000 units BID <Abdirahman Cota - Last Filed: 02/21/17 17:08> CCU Objective - Vital Signs / Intake & Output Vital Signs (Last 4 hours): Vital Signs Temp Pulse Resp BP Pulse Ox 02/21/17 16:01 77 19 92/65 L 02/21/17 16:00 97.5 F L 02/21/17 15:01 84 12 94/75 L 02/21/17 14:01 74 19 89/56 L 100 Intake and Output (Last 8hrs): Intake & Output 02/21/17 02/21/17 02/21/17 06:59 14:59 22:59 Intake Total 50 720 Output Total 600 451 Balance -550 269 Weight 167 lb 4.8 oz Intake: Oral 50 720 Output: Urine 600 450 Urine, Voided 600 450 Urine/Stool Mix 1 Other: # Voids Urine, Voided 1 1 - Medications Active Medications: Active Medications Generic Name Dose Route Start Last Admin Trade Name Freq PRN Reason Stop Dose Admin Albuterol Sulfate 2.5 mg 02/18/17 21:35 02/21/17 13:12 Albuterol 0.083% Inhal Alisha (2.5 Mg/3 Ml) Ud INH 2.5 mg Q6H PRN Administration Shortness of Breath Aspirin 81 mg 02/19/17 10:00 02/21/17 09:49 Ecotrin PO 81 mg DAILY BHANU Administration Carvedilol 6.25 mg 02/21/17 09:40 02/21/17 09:49 Coreg PO 6.25 mg BID BHANU Administration Folic Acid 1 mg 02/19/17 10:00 02/21/17 09:49 Folic Acid PO 1 mg DAILY BHANU Administration Guaifenesin 100 mg 02/20/17 11:13 02/21/17 09:50 Robitussin PO 100 mg Q6H PRN Administration Cough Heparin Sodium (Porcine) 5,000 units 02/19/17 22:00 02/21/17 09:50 Heparin SC 5,000 units Q12H BHANU Administration Ibuprofen 600 mg 02/20/17 18:00 02/21/17 13:54 Motrin Tab PO 600 mg TID BHANU Administration Morphine Sulfate 2 mg 02/19/17 09:32 02/20/17 07:51 Morphine IVP 2 mg Q6 PRN Administration Pain, moderate (4-7) Nitroglycerin 0.4 mg 02/18/17 23:39 02/21/17 06:49 Nitrostat Sl Tab SL 0.4 mg Q5M PRN Administration Other Ondansetron HCl 4 mg 02/18/17 21:50 Zofran Inj IVP Q4 PRN Nausea/Vomiting Ranolazine 500 mg 02/20/17 18:00 02/21/17 09:49 Ranexa PO 500 mg BID BHANU Administration Rosuvastatin Calcium 10 mg 02/19/17 22:00 02/20/17 21:19 Crestor PO 10 mg HS BHANU Administration Sacubitril/Valsartan 1 tab 02/20/17 18:00 02/21/17 09:49 Entresto 24 Mg-26 Mg PO 1 tab BID BHANU Administration - Patient Studies Lab Studies: Microbiology Studies 02/18/17 Unknown MRSA Culture (Admit) - Final Naris MRSA NOT DETECTED Lab Studies 02/21/17 02/21/17 02/21/17 Range/Units 10:32 03:21 03:21 WBC (4.8-10.8) K/uL RBC (4.40-5.90) Mil/uL Hgb (12.0-18.0) g/dL Hct (35.0-51.0) % MCV (80.0-94.0) fL MCH (27.0-31.0) pg MCHC (33.0-37.0) g/dL RDW (11.5-14.5) % Plt Count (130-400) K/uL MPV (7.2-11.7) fL Neut % (Auto) (50.0-75.0) % Lymph % (Auto) (20.0-40.0) % [place] % (Auto) (0.0-10.0) % Eos % (Auto) (0.0-4.0) % Baso % (Auto) (0.0-2.0) % Neut # (1.8-7.0) K/uL Lymph # (1.0-4.3) K/uL [place] # (0.0-0.8) K/uL Eos # (0.0-0.7) K/uL Baso # (0.0-0.2) K/uL Sodium 131 L (132-148) mmol/L Potassium 4.7 (3.6-5.2) mmol/L Chloride 105 (98-107) mmol/L Carbon Dioxide 22 (22-30) mmol/L Anion Gap 9 L (10-20) BUN 16 (9-20) mg/dL Creatinine 1.0 (0.8-1.5) mg/dL Est GFR ( Amer) > 60 Est GFR (Non-Af Amer) > 60 Random Glucose 91 (75-110) mg/dL Calcium 8.1 L (8.6-10.4) mg/dl Phosphorus 3.7 (2.5-4.5) mg/dL Magnesium 1.8 (1.6-2.3) mg/dL Total Bilirubin 1.2 (0.2-1.3) mg/dL AST 27 (17-59) U/L ALT 39 (21-72) U/L Alkaline Phosphatase 28 L (38-126) U/L Total Creatine Kinase 41 L 39 L (55-170) U/L CK-MB (Mass) 0.67 1.31 (0.0-3.38) ng/mL Troponin I 0.0250 0.0310 (0.00-0.120) ng/mL Total Protein 6.1 L (6.3-8.3) g/dL Albumin 3.4 L (3.5-5.0) g/dL Globulin 2.8 (2.2-3.9) gm/dL Albumin/Globulin Ratio 1.2 (1.0-2.1) 02/21/17 02/20/17 Range/Units 03:21 18:11 WBC 7.6 (4.8-10.8) K/uL RBC 4.10 L (4.40-5.90) Mil/uL Hgb 13.0 (12.0-18.0) g/dL Hct 38.9 (35.0-51.0) % MCV 94.9 H (80.0-94.0) fL MCH 31.8 H (27.0-31.0) pg MCHC 33.5 (33.0-37.0) g/dL RDW 14.2 (11.5-14.5) % Plt Count 171 (130-400) K/uL MPV 8.7 (7.2-11.7) fL Neut % (Auto) 63.5 (50.0-75.0) % Lymph % (Auto) 22.8 (20.0-40.0) % [place] % (Auto) 8.4 (0.0-10.0) % Eos % (Auto) 4.0 (0.0-4.0) % Baso % (Auto) 1.3 (0.0-2.0) % Neut # 4.8 (1.8-7.0) K/uL Lymph # 1.7 (1.0-4.3) K/uL [place] # 0.6 (0.0-0.8) K/uL Eos # 0.3 (0.0-0.7) K/uL Baso # 0.1 (0.0-0.2) K/uL Sodium (132-148) mmol/L Potassium (3.6-5.2) mmol/L Chloride (98-107) mmol/L Carbon Dioxide (22-30) mmol/L Anion Gap (10-20) BUN (9-20) mg/dL Creatinine (0.8-1.5) mg/dL Est GFR ( Amer) Est GFR (Non-Af Amer) Random Glucose (75-110) mg/dL Calcium (8.6-10.4) mg/dl Phosphorus (2.5-4.5) mg/dL Magnesium (1.6-2.3) mg/dL Total Bilirubin (0.2-1.3) mg/dL AST (17-59) U/L ALT (21-72) U/L Alkaline Phosphatase (38-126) U/L Total Creatine Kinase 38 L (55-170) U/L CK-MB (Mass) 0.61 (0.0-3.38) ng/mL Troponin I 0.0300 (0.00-0.120) ng/mL Total Protein (6.3-8.3) g/dL Albumin (3.5-5.0) g/dL Globulin (2.2-3.9) gm/dL Albumin/Globulin Ratio (1.0-2.1) Laboratory Results - last 24 hr 02/20/17 02/21/17 02/21/17 18:11 03:21 03:21 WBC 7.6 RBC 4.10 L Hgb 13.0 Hct 38.9 MCV 94.9 H MCH 31.8 H MCHC 33.5 RDW 14.2 Plt Count 171 MPV 8.7 Neut % (Auto) 63.5 Lymph % (Auto) 22.8 [place] % (Auto) 8.4 Eos % (Auto) 4.0 Baso % (Auto) 1.3 Neut # 4.8 Lymph # 1.7 [place] # 0.6 Eos # 0.3 Baso # 0.1 Sodium 131 L Potassium 4.7 Chloride 105 Carbon Dioxide 22 Anion Gap 9 L BUN 16 Creatinine 1.0 Est GFR ( Amer) > 60 Est GFR (Non-Af Amer) > 60 Random Glucose 91 Calcium 8.1 L Phosphorus 3.7 Magnesium 1.8 Total Bilirubin 1.2 AST 27 ALT 39 Alkaline Phosphatase 28 L Total Creatine Kinase 38 L CK-MB (Mass) 0.61 Troponin I 0.0300 Total Protein 6.1 L Albumin 3.4 L Globulin 2.8 Albumin/Globulin Ratio 1.2 02/21/17 02/21/17 03:21 10:32 WBC RBC Hgb Hct MCV MCH MCHC RDW Plt Count MPV Neut % (Auto) Lymph % (Auto) [place] % (Auto) Eos % (Auto) Baso % (Auto) Neut # Lymph # [place] # Eos # Baso # Sodium Potassium Chloride Carbon Dioxide Anion Gap BUN Creatinine Est GFR ( Amer) Est GFR (Non-Af Amer) Random Glucose Calcium Phosphorus Magnesium Total Bilirubin AST ALT Alkaline Phosphatase Total Creatine Kinase 39 L 41 L CK-MB (Mass) 1.31 0.67 Troponin I 0.0310 0.0250 Total Protein Albumin Globulin Albumin/Globulin Ratio EKG/Cardiology Studies: Cardiology / EKG Studies 02/20/17 17:32 EKG [ELECTROCARDIOGRAM] Routine Comment: PLEASE OBTAIN EKG DURING CP Mode Of Transportation: Reason For Exam: CP EKG [ELECTROCARDIOGRAM] Routine Comment: PLEASE OBTAIN EKG IF CP REQUIRING NTG ONCE IN 24 H Mode Of Transportation: Reason For Exam: CP 02/21/17 06:35 EKG [ELECTROCARDIOGRAM] Stat Comment: Mode Of Transportation: Reason For Exam: chest pain Critical Care Progress Note - Nutrition Nutrition: Nutrition Category Date Time Status Heart Healthy Diet [DIET] Diets 02/18/17 Breakfast Active Attending/Attestation - Attestation I have personally seen and examined this patient.: Yes I have fully participated in the care of the patient.: Yes I have reviewed all pertinent clinical information: Yes Notes (Text): 02/21/17 17:05 patient seen and examined in the intensive care unit. Case discussed with staff in the morning rounds. On and off chest pain Negative troponins On nitroglycerin as needed and morphine Consider transferring to floor when cleared by cardiology
[2017-02-22 06:50] LABS: BLOOD UREA NITROGEN 17 mg/dL (9-20); CALCIUM 8.6 mg/dl (8.6-10.4); CARBON DIOXIDE 25 mmol/L (22-30); CHLORIDE 100 mmol/L (98-107); GFR AFRICAN-AMERICAN > 60; GLUCOSE,RANDOM 94 mg/dL (75-110); SODIUM 130 mmol/L (132-148)
[2017-02-22] MEDS: Albuterol 0.083% Inhal Sol (2.5 mg/3 mL) UD INH PRN ×2 (08:03→13:44)
--- NOTE | 2017-02-22 09:21 | CARD ---
APPROVED REPORT EKG Measurement Heart [id number] ID [id number] <Conclusion> Normal sinus rhythm Left axis deviation LEFT ATRIAL ENLARGEMENT Anteroseptal infarct, age undetermined Abnormal ECG
[2017-02-22] MEDS: Sacubitril/Valsartan 24-26mg Tab PO SCH ×2 (09:40→17:31)
[2017-02-22] MEDS: Ranolazine 500 mg Extended Release Tablets PO SCH ×2 (09:42→17:32)
--- NOTE | 2017-02-22 11:25 | CP.PCM.PN ---
Subjective - Date & Time of Evaluation Date of Evaluation: 02/22/17 Time of Evaluation: 11:23 - Subjective Subjective: feels beter no chest pain but still has cough and sob Objective - Vital Signs/Intake and Output Vital Signs (last 24 hours): Temp Pulse Resp BP Pulse Ox 97.8 F 79 18 98/73 L 96 02/22/17 08:00 02/22/17 09:02 02/22/17 09:02 02/22/17 09:02 02/22/17 08:00 Intake and Output: 02/22/17 02/22/17 06:59 18:59 Intake Total 360 0 Output Total 2500 0 Balance -2140 0 - Medications Medications: Current Medications Albuterol Sulfate (Albuterol 0.083% Inhal Alisha (2.5 Mg/3 Ml) Ud) 2.5 mg INH Q6H PRN PRN Reason: Shortness of Breath Last Admin: 02/22/17 08:03 Dose: 2.5 mg Aspirin (Ecotrin) 81 mg PO DAILY [facility] Last Admin: 02/22/17 09:40 Dose: 81 mg Carvedilol (Coreg) 6.25 mg PO BID [facility] Last Admin: 02/22/17 09:40 Dose: 6.25 mg Folic Acid (Folic Acid) 1 mg PO DAILY [facility] Last Admin: 02/22/17 09:40 Dose: 1 mg Guaifenesin (Robitussin) 100 mg PO Q6H PRN PRN Reason: Cough Last Admin: 02/21/17 09:50 Dose: 100 mg Heparin Sodium (Porcine) (Heparin) 5,000 units SC Q12H [facility] Last Admin: 02/22/17 09:40 Dose: 5,000 units Ibuprofen (Motrin Tab) 600 mg PO TID [facility] Last Admin: 02/22/17 09:41 Dose: 600 mg Morphine Sulfate (Morphine) 2 mg IVP Q6 PRN PRN Reason: Pain, moderate (4-7) Last Admin: 02/20/17 07:51 Dose: 2 mg Nitroglycerin (Nitrostat Sl Tab) 0.4 mg SL Q5M PRN PRN Reason: Other Last Admin: 02/21/17 06:49 Dose: 0.4 mg Ondansetron HCl (Zofran Inj) 4 mg IVP Q4 PRN PRN Reason: Nausea/Vomiting Ranolazine (Ranexa) 500 mg PO BID [facility] Last Admin: 02/22/17 09:42 Dose: 500 mg Rosuvastatin Calcium (Crestor) 10 mg PO [facility] Last Admin: 02/21/17 21:31 Dose: 10 mg Sacubitril/Valsartan (Entresto 24 Mg-26 Mg) 1 tab PO BID [facility] Last Admin: 02/22/17 09:40 Dose: 1 tab - Labs Labs: 02/21/17 03:21 02/22/17 06:23 PT 11.6 SECONDS (9.7-12.2) 02/18/17 18:55 INR 1.0 02/18/17 18:55 APTT 32 SECONDS (21-34) 02/18/17 18:55 - Constitutional Appears: Non-toxic - Head Exam Head Exam: NORMAL INSPECTION - Eye Exam Eye Exam: Normal appearance, PERRL - ENT Exam ENT Exam: Normal Exam - Respiratory Exam Respiratory Exam: Decreased Breath Sounds, NORMAL BREATHING PATTERN - Cardiovascular Exam Cardiovascular Exam: REGULAR RHYTHM - GI/Abdominal Exam GI & Abdominal Exam: Soft - Back Exam Back Exam: NORMAL INSPECTION - Neurological Exam Neurological Exam: Normal Gait, Oriented x3 - Skin Skin Exam: Normal Color Assessment and Plan - Assessment and Plan (Free Text) Assessment: chest pain improved ashd copd cont as per orders
--- NOTE | 2017-02-22 13:22 | CP.CCUPN ---
<KhanhJimmyAnahy - Last Filed: 02/22/17 13:19> CCU Subjective - Physician Review Subjective (Free Text): 02/22/17 13:19 Patient seen and examined at bedside. He states he feels much better overall. He reports that he no longer feels short of breath. Admitted to intermittent episodes of chest pain overnight but has not experienced chest pain this morning. He states he has not experienced any diarrhea since his admission, states he has had solid stool. Patient denies abdominal pain, nausea, vomiting, diarrhea, leg swelling, calf pain, headaches. CCU Objective - Vital Signs / Intake & Output Vital Signs (Last 4 hours): Vital Signs Temp Pulse Resp BP 02/22/17 12:01 72 12 87/42 L 02/22/17 12:00 97.8 F 78 17 02/22/17 11:01 75 14 99/59 L 02/22/17 11:00 76 15 02/22/17 10:02 79 20 91/50 L 02/22/17 10:00 73 19 02/22/17 09:39 85 23 115/70 Intake and Output (Last 8hrs): Intake & Output 02/21/17 02/22/17 02/22/17 22:59 06:59 14:59 Intake Total 720 240 600 Output Total 950 2000 300 Balance -230 -1760 300 Weight 162 lb 8 oz Intake: Oral 720 240 600 Output: Urine 950 2000 300 Urine, Voided 950 2000 300 Other: # Voids Urine, Voided 1 3 # Bowel Movements 0 - Physical Exam Head: Positive for: Atraumatic, Normocephalic Pupils: Positive for: PERRL Extroacular Muscles: Positive for: EOMI Conjunctiva: Positive for: Normal Mouth: Positive for: Moist Mucous Membranes Respiratory/Chest: Positive for: Clear to Auscultation, Good Air Exchange. Negative for: Respiratory Distress, Accessory Muscle Use Cardiovascular: Positive for: Regular Rate and Rhythm, Normal S1, S2 Abdomen: Positive for: Normal Bowel Sounds. Negative for: Tenderness, Distention, Peritoneal Signs Upper Extremity: Positive for: Normal Inspection Lower Extremity: Positive for: Normal Inspection Neurological: Positive for: GCS=15 Skin: Positive for: Warm, Dry, Normal Color. Negative for: Rashes Psychiatric: Positive for: Alert, Oriented x 3, Normal Insight, Normal Concentration - Medications Active Medications: Active Medications Generic Name Dose Route Start Last Admin Trade Name Freq PRN Reason Stop Dose Admin Albuterol Sulfate 2.5 mg 02/18/17 21:35 02/22/17 08:03 Albuterol 0.083% Inhal Alisha (2.5 Mg/3 Ml) Ud INH 2.5 mg Q6H PRN Administration Shortness of Breath Aspirin 81 mg 02/19/17 10:00 02/22/17 09:40 Ecotrin PO 81 mg DAILY BHANU Administration Carvedilol 6.25 mg 02/21/17 09:40 02/22/17 09:40 Coreg PO 6.25 mg BID BHANU Administration Folic Acid 1 mg 02/19/17 10:00 02/22/17 09:40 Folic Acid PO 1 mg DAILY BHANU Administration Guaifenesin 100 mg 02/20/17 11:13 02/21/17 09:50 Robitussin PO 100 mg Q6H PRN Administration Cough Heparin Sodium (Porcine) 5,000 units 02/19/17 22:00 02/22/17 09:40 Heparin SC 5,000 units Q12H BHANU Administration Ibuprofen 600 mg 02/20/17 18:00 02/22/17 09:41 Motrin Tab PO 600 mg TID BHANU Administration Morphine Sulfate 2 mg 02/19/17 09:32 02/20/17 07:51 Morphine IVP 2 mg Q6 PRN Administration Pain, moderate (4-7) Nitroglycerin 0.4 mg 02/18/17 23:39 02/21/17 06:49 Nitrostat Sl Tab SL 0.4 mg Q5M PRN Administration Other Ondansetron HCl 4 mg 02/18/17 21:50 Zofran Inj IVP Q4 PRN Nausea/Vomiting Ranolazine 500 mg 02/20/17 18:00 02/22/17 09:42 Ranexa PO 500 mg BID BHANU Administration Rosuvastatin Calcium 10 mg 02/19/17 22:00 02/21/17 21:31 Crestor PO 10 mg HS BHANU Administration Sacubitril/Valsartan 1 tab 02/20/17 18:00 02/22/17 09:40 Entresto 24 Mg-26 Mg PO 1 tab BID BHANU Administration - Patient Studies Lab Studies: Lab Studies 02/22/17 Range/Units 06:23 Sodium 130 L (132-148) mmol/L Potassium 5.0 (3.6-5.2) mmol/L Chloride 100 (98-107) mmol/L Carbon Dioxide 25 (22-30) mmol/L Anion Gap 10 (10-20) BUN 17 (9-20) mg/dL Creatinine 0.9 (0.8-1.5) mg/dL Est GFR ( Amer) > 60 Est GFR (Non-Af Amer) > 60 Random Glucose 94 (75-110) mg/dL Calcium 8.6 (8.6-10.4) mg/dl Laboratory Results - last 24 hr 02/22/17 06:23 Sodium 130 L Potassium 5.0 Chloride 100 Carbon Dioxide 25 Anion Gap 10 BUN 17 Creatinine 0.9 Est GFR ( Amer) > 60 Est GFR (Non-Af Amer) > 60 Random Glucose 94 Calcium 8.6 Review of Systems - Review of Systems All systems: reviewed and no additional remarkable complaints except (as per HPI ) Critical Care Progress Note - Nutrition Nutrition: Nutrition Category Date Time Status Heart Healthy Diet [DIET] Diets 02/18/17 Breakfast Active Assessment/Plan - Assessment and Plan (Free Text) Assessment: 56 year old male with history of CHF with low EF (15%, as per patient), CAD with AICD placed in March 2016, COPD, HTN, HLD, asthma who was admitted for complaints of chest pain that radiates to left arm and shortness of breath. AICD was reportedly placed by Dr. Herberth Fontana at [facility] in Mar 2016. Plan: Cardiovascular: CHF with low EF Pro BNP 2200 NSTEMI Troponins neg x6 02/18 0.0410 02/18 0.0370 02/19 0.0300 02/20 0.0300 02/21 0.0310 02/21 0.0250 Hx of CAD, AICD placed Mar [address] [place] [address] Herberth Fontana at [facility]. AICD last checked in April 2016. Awaiting medical records from [facility] EK/23: NSR at 89 with sinus arrhythmia 02/19: NSR at 95 with left axis deviation, left atrial enlargement, anteroseptal infarct - age undetermined. Grinding Room Supervisor Dr. Hay consulted, help appreciated. Stable to be transferred from ICU. HR 74 BP 97/69 ASA 81mg PO daily Coreg 6.25mg PO BID Heparin 5000 units SC Q 12 Morphine 2mg IVP Q6 PRN for pain Nitroglycerin 0.4mg SL Q5 mins PRN chest pain Zofran 4mg IVP Q4 PRN nausea Ranexa 500mg PO BID Entresto 24-26mg 1 tab PO BID Crestor 10mg PO HS Ibuprofen 600mg PO TID 02/18 PT 11.6 INR 1.0 APTT 32 02/18 Digoxin level < 0.4 Heart healthy diet ECHO pending Pulmonary Dyspnea, hx of COPD on O2 at home RR 16 O2 sat 96% on RA Albuterol Q 6 PRN Guaifenesin 100mg PO Q6 PRN cough CXR 02/18/17: Ill-defined haziness in the right lower lobe may represent pneumonia or pulmonary edema. Follow-up is advised. Mild cardiomegaly and pulmonary venous congestion. Chest CT 02/18/17 IMPRESSION: 1. Findings compatible with mild interstitial edema. Clinical correlation is needed. 2. Right lower lobe atelectasis. Superimposed pneumonia not excluded. 3. Incidental/non-acute findings are described above. Initial report created on 02/19/2017 12:25:25 AM EST Fluids, electrolytes, nutrition Na 130 K 5.0 Cl 100 HCO3 25 BUN 17 Cr 0.9 Glucose 94 Ca 8.6 Input 1680 Output 3401 Balance -1721ml Heart healthy diet Prophylaxis: DVTs: SCDs, Heparin 5000 units BID <Abdirahman Cota S - Last Filed: 02/22/17 16:43> CCU Objective - Vital Signs / Intake & Output Vital Signs (Last 4 hours): Vital Signs Pulse Resp BP 02/22/17 14:01 68 15 74/45 L 02/22/17 14:00 66 12 02/22/17 13:00 68 19 87/57 L Intake and Output (Last 8hrs): Intake & Output 02/22/17 02/22/17 02/22/17 06:59 14:59 22:59 Intake Total 240 600 Output Total 2000 300 Balance -1760 300 Weight 162 lb 8 oz Intake: Oral 240 600 Output: Urine 2000 300 Urine, Voided 2000 300 Other: # Voids Urine, Voided 3 # Bowel Movements 0 - Medications Active Medications: Active Medications Generic Name Dose Route Start Last Admin Trade Name Freq PRN Reason Stop Dose Admin Albuterol Sulfate 2.5 mg 02/18/17 21:35 02/22/17 13:44 Albuterol 0.083% Inhal Alisha (2.5 Mg/3 Ml) Ud INH 2.5 mg Q6H PRN Administration Shortness of Breath Aspirin 81 mg 02/19/17 10:00 02/22/17 09:40 Ecotrin PO 81 mg DAILY BHANU Administration Carvedilol 6.25 mg 02/21/17 09:40 02/22/17 09:40 Coreg PO 6.25 mg BID BHANU Administration Folic Acid 1 mg 02/19/17 10:00 02/22/17 09:40 Folic Acid PO 1 mg DAILY BHANU Administration Guaifenesin 100 mg 02/20/17 11:13 02/21/17 09:50 Robitussin PO 100 mg Q6H PRN Administration Cough Heparin Sodium (Porcine) 5,000 units 02/19/17 22:00 02/22/17 09:40 Heparin SC 5,000 units Q12H BHANU Administration Ibuprofen 600 mg 02/20/17 18:00 02/22/17 14:27 Motrin Tab PO Not Given TID [facility] Morphine Sulfate 2 mg 02/19/17 09:32 02/20/17 07:51 Morphine IVP 2 mg Q6 PRN Administration Pain, moderate (4-7) Nitroglycerin 0.4 mg 02/18/17 23:39 02/21/17 06:49 Nitrostat Sl Tab SL 0.4 mg Q5M PRN Administration Other Ondansetron HCl 4 mg 02/18/17 21:50 Zofran Inj IVP Q4 PRN Nausea/Vomiting Ranolazine 500 mg 02/20/17 18:00 02/22/17 09:42 Ranexa PO 500 mg BID BHANU Administration Rosuvastatin Calcium 10 mg 02/19/17 22:00 02/21/17 21:31 Crestor PO 10 mg HS BHANU Administration Sacubitril/Valsartan 1 tab 02/20/17 18:00 02/22/17 09:40 Entresto 24 Mg-26 Mg PO 1 tab BID BHANU Administration - Patient Studies Lab Studies: Lab Studies 02/22/17 Range/Units 06:23 Sodium 130 L (132-148) mmol/L Potassium 5.0 (3.6-5.2) mmol/L Chloride 100 (98-107) mmol/L Carbon Dioxide 25 (22-30) mmol/L Anion Gap 10 (10-20) BUN 17 (9-20) mg/dL Creatinine 0.9 (0.8-1.5) mg/dL Est GFR ( Amer) > 60 Est GFR (Non-Af Amer) > 60 Random Glucose 94 (75-110) mg/dL Calcium 8.6 (8.6-10.4) mg/dl Laboratory Results - last 24 hr 02/22/17 06:23 Sodium 130 L Potassium 5.0 Chloride 100 Carbon Dioxide 25 Anion Gap 10 BUN 17 Creatinine 0.9 Est GFR ( Amer) > 60 Est GFR (Non-Af Amer) > 60 Random Glucose 94 Calcium 8.6 Critical Care Progress Note - Nutrition Nutrition: Nutrition Category Date Time Status Heart Healthy Diet [DIET] Diets 02/18/17 Breakfast Active Attending/Attestation - Attestation I have personally seen and examined this patient.: Yes I have fully participated in the care of the patient.: Yes I have reviewed all pertinent clinical information: Yes Notes (Text): 02/22/17 16:42 patient seen and examined in the intensive care unit. Case discussed with house staff in the morning. Patient stable for transfer to telemetry Continue present treatment
--- NOTE | 2017-02-22 14:46 | CP.PCM.PN ---
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 Objective - Vital Signs/Intake and Output Vital Signs (last 24 hours): Temp Pulse Resp BP Pulse Ox 97.8 F 68 15 74/45 L 96 02/22/17 12:00 02/22/17 14:01 02/22/17 14:01 02/22/17 14:01 02/22/17 08:00 Intake and Output: 02/22/17 02/22/17 11:59 23:59 Intake Total 540 300 Output Total 2300 0 Balance -1760 300 - Medications Medications: Current Medications Albuterol Sulfate (Albuterol 0.083% Inhal Alisha (2.5 Mg/3 Ml) Ud) 2.5 mg INH Q6H PRN PRN Reason: Shortness of Breath Last Admin: 02/22/17 13:44 Dose: 2.5 mg Aspirin (Ecotrin) 81 mg PO DAILY [facility] Last Admin: 02/22/17 09:40 Dose: 81 mg Carvedilol (Coreg) 6.25 mg PO BID [facility] Last Admin: 02/22/17 09:40 Dose: 6.25 mg Folic Acid (Folic Acid) 1 mg PO DAILY [facility] Last Admin: 02/22/17 09:40 Dose: 1 mg Guaifenesin (Robitussin) 100 mg PO Q6H PRN PRN Reason: Cough Last Admin: 02/21/17 09:50 Dose: 100 mg Heparin Sodium (Porcine) (Heparin) 5,000 units SC Q12H [facility] Last Admin: 02/22/17 09:40 Dose: 5,000 units Ibuprofen (Motrin Tab) 600 mg PO TID [facility] Last Admin: 02/22/17 14:27 Dose: Not Given Morphine Sulfate (Morphine) 2 mg IVP Q6 PRN PRN Reason: Pain, moderate (4-7) Last Admin: 02/20/17 07:51 Dose: 2 mg Nitroglycerin (Nitrostat Sl Tab) 0.4 mg SL Q5M PRN PRN Reason: Other Last Admin: 02/21/17 06:49 Dose: 0.4 mg Ondansetron HCl (Zofran Inj) 4 mg IVP Q4 PRN PRN Reason: Nausea/Vomiting Ranolazine (Ranexa) 500 mg PO BID [facility] Last Admin: 02/22/17 09:42 Dose: 500 mg Rosuvastatin Calcium (Crestor) 10 mg PO HS [facility] Last Admin: 02/21/17 21:31 Dose: 10 mg Sacubitril/Valsartan (Entresto 24 Mg-26 Mg) 1 tab PO BID [facility] Last Admin: 02/22/17 09:40 Dose: 1 tab - Labs Labs: 02/21/17 03:21 02/22/17 06:23 PT 11.6 SECONDS (9.7-12.2) 02/18/17 18:55 INR 1.0 02/18/17 18:55 APTT 32 SECONDS (21-34) 02/18/17 18:55
--- NOTE | 2017-02-22 21:48 | CARD ---
APPROVED REPORT EXAM: Two-dimensional and M-mode echocardiogram with Doppler and color Doppler. Other Information Quality : AverageRhythm : NSR INDICATION Pericardial Effusion Chest Pain Congestive Heart Failure RISK FACTORS Hypertension M-Mode DIMENSIONS RVDd2.30 (2.1-3.2cm)Left Atrium (MM)5.31 (2.5-4.0cm) IVSd0.98 (0.7-1.1cm)Aortic Root2.11 (2.2-3.7cm) LVDd6.99 (4.0-5.6cm)Aortic Cusp Exc.1.80 (1.5-2.0cm) PWd1.29 (0.7-1.1cm)FS (%) 20 % LVDs5.62 (2.0-3.8cm)LVEF (%)39 (>50%) Aortic Valve AoV Peak Mnhqoxbc114.3cm/Norris Peak GR.10mmHg Mitral Valve MV E Gvkzoswn76.4cm/sMV A Bzuojijh66.9cm/sE/A ratio2.3 TDI E/Lateral E'0.0E/Medial E'0.0 Tricuspid Valve TR Peak [id number]/sTR Peak [id number] <Conclusion> Left ventricle: thickness: normal; size: dilated; overall ejection fraction: 15%: diastolic filling pressures:elevated Mitral valve: annulus: normal: leaflets: normal: excursion: normal; no significant trans-mitral gradient:moderate incompetence: left atrium: dilated Aortic valve: leaflets: normal: excursion: normal;indeterminate trans-aortic gradient: No significant incompetence: aortic root: normal Right sided Structures:ICD lead noted Pulmonary valve: normal; no significant incompetence; Tricuspid valve: normal; no significant incompetence: Intra-cardiac hemodynamics: pulmonary systolic pressures:45mmhg; central venous pressures: normal No pericardial effusion
[2017-02-22 23:02] VITALS: O2SAT 97
[2017-02-23] MEDS: Albuterol 0.083% Inhal Sol (2.5 mg/3 mL) UD INH PRN ×2 (07:05→13:58)
[2017-02-23] MEDS: Sacubitril/Valsartan 24-26mg Tab PO SCH ×2 (09:12→18:33)
[2017-02-23] MEDS: Ranolazine 500 mg Extended Release Tablets PO SCH ×2 (09:12→18:33)
--- NOTE | 2017-02-23 18:32 | CP.PCM.PN ---
Subjective - Date & Time of Evaluation Date of Evaluation: 02/23/17 Time of Evaluation: 18:30 - Subjective Subjective: less chest pain less cough sob bp low Objective - Vital Signs/Intake and Output Vital Signs (last 24 hours): Temp Pulse Resp BP Pulse Ox 97.7 F 70 17 92/47 L 97 02/23/17 12:00 02/23/17 16:01 02/23/17 16:01 02/23/17 16:01 02/23/17 04:00 Intake and Output: 02/23/17 02/23/17 06:59 18:59 Intake Total 250 1600 Output Total 350 1400 Balance -100 200 - Medications Medications: Current Medications Albuterol Sulfate (Albuterol 0.083% Inhal Alisha (2.5 Mg/3 Ml) Ud) 2.5 mg INH Q6H PRN PRN Reason: Shortness of Breath Last Admin: 02/23/17 13:58 Dose: 2.5 mg Aspirin (Ecotrin) 81 mg PO DAILY [facility] Last Admin: 02/23/17 09:13 Dose: 81 mg Carvedilol (Coreg) 6.25 mg PO BID [facility] Last Admin: 02/23/17 09:13 Dose: 6.25 mg Folic Acid (Folic Acid) 1 mg PO DAILY [facility] Last Admin: 02/23/17 09:13 Dose: 1 mg Guaifenesin (Robitussin) 100 mg PO Q6H PRN PRN Reason: Cough Last Admin: 02/21/17 09:50 Dose: 100 mg Ibuprofen (Motrin Tab) 600 mg PO TID [facility] Last Admin: 02/23/17 14:56 Dose: Not Given Morphine Sulfate (Morphine) 2 mg IVP Q6 PRN PRN Reason: Pain, moderate (4-7) Last Admin: 02/20/17 07:51 Dose: 2 mg Nitroglycerin (Nitrostat Sl Tab) 0.4 mg SL Q5M PRN PRN Reason: Other Last Admin: 02/21/17 06:49 Dose: 0.4 mg Ondansetron HCl (Zofran Inj) 4 mg IVP Q4 PRN PRN Reason: Nausea/Vomiting Ranolazine (Ranexa) 500 mg PO BID [facility] Last Admin: 02/23/17 09:12 Dose: 500 mg Rosuvastatin Calcium (Crestor) 10 mg PO [facility] Last Admin: 02/22/17 22:45 Dose: 10 mg Sacubitril/Valsartan (Entresto 24 Mg-26 Mg) 1 tab PO BID [facility] Last Admin: 02/23/17 09:12 Dose: 1 tab - Labs Labs: 02/21/17 03:21 02/22/17 06:23 PT 11.6 SECONDS (9.7-12.2) 02/18/17 18:55 INR 1.0 02/18/17 18:55 APTT 32 SECONDS (21-34) 02/18/17 18:55 - Constitutional Appears: Non-toxic - Head Exam Head Exam: NORMAL INSPECTION - ENT Exam ENT Exam: Mucous Membranes Moist - Neck Exam Neck Exam: Normal Inspection - Respiratory Exam Respiratory Exam: Decreased Breath Sounds, Prolonged Expiratory Phase - Cardiovascular Exam Cardiovascular Exam: REGULAR RHYTHM - GI/Abdominal Exam GI & Abdominal Exam: Soft - Back Exam Back Exam: NORMAL INSPECTION - Neurological Exam Neurological Exam: Alert, Normal Gait, Oriented x3 - Skin Skin Exam: Normal Color Assessment and Plan - Assessment and Plan (Free Text) Assessment: cad chf c arythmia improving hypotension Plan: cont as per order june d/c soon
[2017-02-24] MEDS: guaiFENesin 100 mg/5 ml Syrup UD PO PRN (01:23)
[2017-02-24 03:46] VITALS: PULSE 72; RESP 17
[2017-02-24 04:15] VITALS: TEMP 98
[2017-02-24 07:55] VITALS: BP 101/73
== END 2017-02-24 08:20 | disposition left against medical advice (07) | DRG 543 ==
LOC: C.ER 18:20 → C.9I 21:20
PROVIDERS: ADMIT Internal Medicine; ATTEND Internal Medicine
DX: R07.9 Chest pain, unspecified (principal); I50.22 Chronic systolic (congestive) heart failure; I25.10 Atherosclerotic heart disease of native coronary artery without angina pectoris; I11.0 Hypertensive heart disease with heart failure; I42.9 Cardiomyopathy, unspecified; J44.9 Chronic obstructive pulmonary disease, unspecified; Z87.891 Personal history of nicotine dependence; Z95.810 Presence of automatic (implantable) cardiac defibrillator; I25.2 Old myocardial infarction; E78.00 Pure hypercholesterolemia, unspecified; F31.9 Bipolar disorder, unspecified

== ENCOUNTER 2017-06-28 08:09 | Inpatient (IN) | payer MEDICAID ==
[2017-06-28] MEDS ORDERED: Sodium Chloride 0.9% 500 ML IV ONE (08:50)
[2017-06-28] MEDS ORDERED: Sodium Chloride 0.9% 1,000 ML ONE (09:21)
[2017-06-28 09:41] LABS: BASO # 0.1 K/uL (0.0-0.2); BASO % 1.1 % (0.0-2.0); EOS # 0.1 K/uL (0.0-0.7); EOS % 1.2 % (0.0-4.0); LYMPH # 2.3 K/uL (1.0-4.3); LYMPH % 31.2 % (20.0-40.0); MEAN CORPUSCULAR HEMOGLOBIN 30.7 pg (27.0-31.0); MEAN CORPUSCULAR HGB CONC 33.1 g/dL (33.0-37.0); MEAN PLATELET VOLUME 7.8 fL (7.2-11.7); MONO # 0.7 K/uL (0.0-0.8); MONO % 9.5 % (0.0-10.0); NEUT # 4.2 K/uL (1.8-7.0); NRBC % 0.1 % (0.0-2.0); RBC 4.24 Mil/uL (4.40-5.90); RED CELL DISTRIBUTION WIDTH 15.6 % (11.5-14.5); WHITE BLOOD COUNT 7.3 K/uL (4.8-10.8)
[2017-06-28 09:44] LABS: MEAN CELL VOLUME 92.8 fL (80.0-94.0)
[2017-06-28 09:49] LABS: ALB/GLOB RATIO 1.4 (1.0-2.1); CALCIUM 8.3 mg/dl (8.6-10.4); GFR AFRICAN-AMERICAN > 60; GFR NON-AFRICAN AMERICAN > 60
[2017-06-28 09:50] LABS: PROTHROMBIN TIME 11.8 SECONDS (9.7-12.2)
--- NOTE | 2017-06-28 09:56 | RAD ---
PROCEDURE: CHEST RADIOGRAPH, 1 VIEW HISTORY: cp COMPARISON: Chest radiograph dated 02/18/2017. FINDINGS: LUNGS: Clear. PLEURA: No pneumothorax or pleural fluid seen. CARDIOVASCULAR: Left subclavian access AICD/ pacemaker redemonstrated. Atherosclerotic aortic calcifications. Cardiomediastinal silhouette stably enlarged. OSSEOUS STRUCTURES: Unchanged. VISUALIZED UPPER ABDOMEN: Normal. OTHER FINDINGS: None. IMPRESSION: No active disease.
[2017-06-28 09:59] LABS: ALT/SGPT 150 U/L (21-72); AST/SGOT 147 U/L (17-59); BLOOD UREA NITROGEN 15 mg/dL (9-20); CK-MB 5.28 ng/mL (0.0-3.38)
[2017-06-28 11:08] LABS: B-TYPE NATRIURETIC PEPTIDE 1000 pg/mL (0-900)
--- NOTE | 2017-06-28 11:34 | C.PDOC ---
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 Patient is currently c/o feeling tired. He denies fever/chills, shortness of breath, palpitations, abdominal pain, nausea, vomiting, diarrhea, cough. Time Seen by Provider: 06/28/17 08:11 Chief Complaint (Nursing): Chest Pain History Per: Patient, EMS History/Exam Limitations: no limitations Onset/Duration Of Symptoms: Mins (30) Current Symptoms Are (Timing): Better Severity: Moderate Quality: "Pain" Associated Symptoms: denies: Nausea Additional History Per: Patient, EMS Past Medical History Reviewed: Historical Data, Nursing Documentation, Vital Signs Vital Signs: Last Vital Signs Temp 98.2 F 06/30/17 23:55 Pulse 71 06/30/17 23:55 Resp 20 06/30/17 23:55 BP 98/61 L 06/30/17 23:55 Pulse Ox 95 06/30/17 23:55 - Medical History PMH: Asthma, Bipolar Disorder, Bronchitis, CHF (with low EF), COPD, Depression, HTN, Hypercholesterolemia Surgical History: Pacemaker (AICD) Family History: States: No Known Family Hx - Social History Hx Tobacco Use: No (Quit) Hx Alcohol Use: No Hx Substance Use: No - Immunization History Hx Tetanus Toxoid Vaccination: No Hx Influenza Vaccination: No Hx Pneumococcal Vaccination: No Review Of Systems Constitutional: Negative for: Fever, Chills Cardiovascular: Positive for: Chest Pain. Negative for: Palpitations Respiratory: Negative for: Cough, Shortness of Breath Gastrointestinal: Negative for: Nausea, Vomiting, Abdominal Pain, Diarrhea Neurological: Positive for: Dizziness. Negative for: Weakness, Numbness, Headache Physical Exam - Physical Exam Appears: Well, Non-toxic, No Acute Distress, Other (drowsy, visibly intoxicated ) Skin: Normal Color, Warm, Dry Head: Atraumatic, Normacephalic Eye(s): bilateral: Other (pupils dilated and reactive; right pupil is irregular ) Oral Mucosa: Moist Neck: Supple Cardiovascular: Rhythm Regular, No Murmur Respiratory: Normal Breath Sounds, No Rales, No Rhonchi, No Wheezing Gastrointestinal/Abdominal: Normal Exam, Bowel Sounds, Soft, No Tenderness Extremity: Normal ROM, Pedal Edema, No Calf Tenderness, Other (1+ pitting edema to bilateral lower extremities ) Pulses: Left Dorsalis Pedis: Normal, Right Dorsalis Pedis: Normal Neurological/Psych: Oriented x3 ED Course And Treatment - Laboratory Results Result Diagrams: 06/30/17 07:04 06/30/17 07:04 ECG: Interpreted By Me, Viewed By Me ECG Rhythm: Sinus Bradycardia ECG Interpretation: Abnormal Interpretation Of ECG: Sinus Bradycardia at rate 59bpm. Left axis deviation. T wave inversions in V2-V6. No acute ST changes. Rate From EC O2 Sat by Pulse Oximetry: 95 (RA) Pulse Ox Interpretation: Normal - Radiology CXR: Interpreted by Me, Viewed By Me CXR Interpretation: Yes: No Acute Disease. No: Infiltrates Progress Note: Bloodwork, UA, UDS, CXR, EKG ordered and reviewed. BP borderline low - IV 500mlNS bolus given. Prior visits reviewed, patient's BP is typically boderline low. 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 Disposition - Disposition Disposition: HOSPITALIZED Disposition Time: 14:00 Condition: STABLE - Clinical Impression Clinical Impression: Chest pain, Elevated brain natriuretic peptide (BNP) level, Dyspnea, CHF exacerbation - Scribe Statement The provider has reviewed the documentation as recorded by the Scribe (Patricia Seals) Provider Attestation: All medical record entries made by the Scribe were at my direction and personally dictated by me. I have reviewed the chart and agree that the record accurately reflects my personal performance of the history, physical exam, medical decision making, and the department course for this patient. I have also personally directed, reviewed, and agree with the discharge instructions and disposition. Decision To Admit - Pt Status Changed To: Hospital Disposition Of: Inpatient - Admit Certification Admit to Inpatient:: After my assessment, the patient will require hospitalization for at least two midnights. This is because of the severity of symptoms shown, intensity of services needed, and/or the medical risk in this patient being treated as an outpatient. - InPatient: Physician Admission Certification: I certify that this patient requires 2 or more midnights of care for the following reason:: see notes - . Bed Request Type: Telemetry Admitting Physician: Roseanna Seals Patient Diagnosis: Chest pain, Dyspnea, CHF exacerbation, Elevated brain natriuretic peptide (BNP ) level
--- NOTE | 2017-06-28 15:37 | CP.PCM.HP ---
Past Patient History - Infectious Disease Hx of Infectious Diseases: None - Past Medical History & Family History Past Medical History?: Yes - Past Social History Smoking Status: Former Smoker - CARDIAC Hx Congestive Heart Failure: Yes (with low EF) Hx Hypercholesterolemia: Yes Hx Hypertension: Yes Hx Pacemaker: Yes (AICD) - PULMONARY Hx Asthma: Yes Hx Bronchitis: Yes Hx Chronic Obstructive Pulmonary Disease (COPD): Yes - NEUROLOGICAL Hx Neurological Disorder: No - HEENT Hx HEENT Problems: No - RENAL Hx Chronic Kidney Disease: No - ENDOCRINE/METABOLIC Hx Endocrine Disorders: No - HEMATOLOGICAL/ONCOLOGICAL Hx Blood Disorders: No - INTEGUMENTARY Hx Dermatological Problems: No - MUSCULOSKELETAL/RHEUMATOLOGICAL Hx Musculoskeletal Disorders: No - GASTROINTESTINAL Hx Gastrointestinal Disorders: No - GENITOURINARY/GYNECOLOGICAL Hx Genitourinary Disorders: No - PSYCHIATRIC Hx Bipolar Disorder: Yes Hx Depression: Yes Hx Substance Use: No - SURGICAL HISTORY Hx Surgeries: Yes Hx Orthopedic Surgery: Yes (RIGHT LEG) Other/Comment: PACEMAKER/DEFIB INSERTION - ANESTHESIA Hx Anesthesia: Yes Hx Anesthesia Reactions: No Hx Malignant Hyperthermia: No Meds Allergies/Adverse Reactions: Allergies Allergy/AdvReac Type Severity Reaction Status Date / Time No Known Allergies Allergy Verified 06/28/17 08:32 Physical Exam - Constitutional Appears: Well - Head Exam Head Exam: ATRAUMATIC, NORMAL INSPECTION, NORMOCEPHALIC - Eye Exam Eye Exam: EOMI, Normal appearance, PERRL Pupil Exam: NORMAL ACCOMODATION, PERRL - ENT Exam ENT Exam: Mucous Membranes Moist, Normal Exam - Neck Exam Neck exam: Positive for: Normal Inspection - Respiratory Exam Respiratory Exam: Decreased Breath Sounds - Cardiovascular Exam Cardiovascular Exam: REGULAR RHYTHM, +S1, +S2 - GI/Abdominal Exam GI & Abdominal Exam: Diminished Bowel Sounds, Soft - Rectal Exam Rectal Exam: Deferred Results - Vital Signs Recent Vital Signs: Last Vital Signs Temp 98 F 06/28/17 15:02 Pulse 82 06/28/17 15:02 Resp 16 06/28/17 15:02 BP 120/71 06/28/17 15:02 Pulse Ox 97 06/28/17 15:02 - Labs Result Diagrams: 06/28/17 09:31 06/28/17 09:31 Labs: Laboratory Results - last 24 hr 06/28/17 06/28/17 06/28/17 09:31 09:31 09:31 WBC 7.3 RBC 4.24 L Hgb 13.0 Hct 39.4 MCV 92.8 D MCH 30.7 MCHC 33.1 RDW 15.6 H Plt Count 231 MPV 7.8 Neut % (Auto) 57.0 Lymph % (Auto) 31.2 [place] % (Auto) 9.5 Eos % (Auto) 1.2 Baso % (Auto) 1.1 Neut # (Auto) 4.2 Lymph # (Auto) 2.3 [place] # (Auto) 0.7 Eos # (Auto) 0.1 Baso # (Auto) 0.1 PT 11.8 INR 1.0 APTT 36 H Sodium 141 Potassium 5.1 Chloride 105 Carbon Dioxide 22 Anion Gap 19 BUN 15 Creatinine 0.9 Est GFR ( Amer) > 60 Est GFR (Non-Af Amer) > 60 Random Glucose 77 Calcium 8.3 L Total Bilirubin 1.0 AST 147 H D ALT 150 H D Alkaline Phosphatase 43 Total Creatine Kinase 333 H CK-MB (Mass) 5.28 H Troponin I 0.0430 NT-Pro-B Natriuret Pep 1000 H Total Protein 7.0 Albumin 4.0 Globulin 2.9 Albumin/Globulin Ratio 1.4 Alcohol, Quantitative 186 H
[2017-06-28] MEDS ORDERED: [UNRECOGNIZED DRUG - OTHER] IV SCH ×2 (16:15→20:00)
[2017-06-28] MEDS ORDERED: MULTIVITAMIN IV SCH ×2 (16:15→20:00)
[2017-06-28] MEDS ORDERED: THIAMINE IV SCH ×2 (16:15→20:00)
[2017-06-28] MEDS ORDERED: FOLIC ACID IV SCH ×2 (16:15→20:00)
[2017-06-28] MEDS: Albuterol 0.083% Inhal Sol (2.5 mg/3 mL) UD INH SCH (20:13)
[2017-06-28 20:32] LABS: URINE BILIRUBIN NEGATIVE (NEGATIVE); URINE BLOOD 2+ (NEGATIVE); URINE CLARITY Clear (Clear); URINE COLOR Straw (YELLOW); URINE GLUCOSE (UA) NORMAL (Normal); URINE LEUKOCYTE ESTERASE NEG Leu/uL (Negative); URINE PROTEIN NEGATIVE (NEGATIVE); URINE UROBILINOGEN NORMAL mg/dL (0.2-1.0)
[2017-06-28 20:38] LABS: BARBITURATES, UR NEGATIVE (NEGATIVE); BENZODIAZEPINES, UR NEGATIVE (NEGATIVE); OPIATES, UR NEGATIVE (NEGATIVE); PHENCYCLIDINE, UR NEGATIVE (NEGATIVE)
[2017-06-29] MEDS: Albuterol 0.083% Inhal Sol (2.5 mg/3 mL) UD INH SCH ×3 (08:25→19:59)
--- NOTE | 2017-06-29 09:40 | CP.PCM.CON ---
History of Present Illness - History of Present Illness History of Present Illness: patent seen/examined. full consutl to follow. nonischemic cardomyopathy s/p AICD cardiac cath one month ago no intevention necessary patient is stable for d/c. outpatient follow up Past Patient History - Infectious Disease Hx of Infectious Diseases: None - Past Medical History & Family History Past Medical History?: Yes - Past Social History Smoking Status: Former Smoker - CARDIAC Hx Congestive Heart Failure: Yes (with low EF) Hx Hypercholesterolemia: Yes Hx Hypertension: Yes Hx Pacemaker: Yes (AICD) - PULMONARY Hx Asthma: Yes Hx Bronchitis: Yes Hx Chronic Obstructive Pulmonary Disease (COPD): Yes - NEUROLOGICAL Hx Neurological Disorder: No - HEENT Hx HEENT Problems: No - RENAL Hx Chronic Kidney Disease: No - ENDOCRINE/METABOLIC Hx Endocrine Disorders: No - HEMATOLOGICAL/ONCOLOGICAL Hx Blood Disorders: No - INTEGUMENTARY Hx Dermatological Problems: No - MUSCULOSKELETAL/RHEUMATOLOGICAL Hx Musculoskeletal Disorders: No Hx Falls: No - GASTROINTESTINAL Hx Gastrointestinal Disorders: No - GENITOURINARY/GYNECOLOGICAL Hx Genitourinary Disorders: No - PSYCHIATRIC Hx Bipolar Disorder: Yes Hx Depression: Yes Hx Substance Use: No - SURGICAL HISTORY Hx Surgeries: Yes Hx Orthopedic Surgery: Yes (RIGHT LEG) Other/Comment: PACEMAKER/DEFIB INSERTION - ANESTHESIA Hx Anesthesia: Yes Hx Anesthesia Reactions: No Hx Malignant Hyperthermia: No Has any member of the family had a problem w/ anesthesia?: No Meds Allergies/Adverse Reactions: Allergies Allergy/AdvReac Type Severity Reaction Status Date / Time No Known Allergies Allergy Verified 06/28/17 08:32 - Medications Medications: Current Medications Albuterol Sulfate (Albuterol 0.083% Inhal Alisha (2.5 Mg/3 Ml) Ud) 2.5 mg INH RTID [facility] Last Admin: 06/29/17 08:25 Dose: 2.5 mg Aspirin (Ecotrin) 81 mg PO DAILY [facility] Bumetanide (Bumex) 1 mg PO BID [facility] Last Admin: 06/28/17 21:20 Dose: 1 mg Carvedilol (Coreg) 6.25 mg PO BID [facility] Last Admin: 06/28/17 18:05 Dose: 6.25 mg Digoxin (Digoxin) 0.125 mg PO DAILY@1800 [facility] Enoxaparin Sodium (Lovenox) 40 mg SC DAILY [facility] Multivitamins/Vitamin C 10 ml/Thiamine HCl 1 mg/ Folic Acid 1 mg/ Dextrose/ Sodium Chloride 1,010.21 mls @ 100 mls/hr IV Q24H [facility] Last Admin: 06/28/17 21:00 Dose: 100 mls/hr Lorazepam (Ativan) 1 mg IVP Q6H PRN PRN Reason: Anxiety Rosuvastatin Calcium (Crestor) 10 mg PO HS [facility] Last Admin: 06/28/17 21:20 Dose: 10 mg Sacubitril/Valsartan (Entresto 24 Mg-26 Mg) 1 tab PO DAILY [facility] Results - Vital Signs Recent Vital Signs: Last Vital Signs Temp 98.2 F 06/29/17 08:52 Pulse 78 06/29/17 08:52 Resp 20 06/29/17 08:52 BP 147/87 06/29/17 08:52 Pulse Ox 95 06/29/17 08:52 - Labs Result Diagrams: 06/28/17 09:31 06/28/17 09:31 Labs: Laboratory Results - last 24 hr 06/28/17 06/28/17 06/28/17 09:31 09:31 09:31 WBC 7.3 RBC 4.24 L Hgb 13.0 Hct 39.4 MCV 92.8 D MCH 30.7 MCHC 33.1 RDW 15.6 H Plt Count 231 MPV 7.8 Neut % (Auto) 57.0 Lymph % (Auto) 31.2 [place] % (Auto) 9.5 Eos % (Auto) 1.2 Baso % (Auto) 1.1 Neut # (Auto) 4.2 Lymph # (Auto) 2.3 [place] # (Auto) 0.7 Eos # (Auto) 0.1 Baso # (Auto) 0.1 PT 11.8 INR 1.0 APTT 36 H Sodium 141 Potassium 5.1 Chloride 105 Carbon Dioxide 22 Anion Gap 19 BUN 15 Creatinine 0.9 Est GFR ( Amer) > 60 Est GFR (Non-Af Amer) > 60 Random Glucose 77 Calcium 8.3 L Total Bilirubin 1.0 AST 147 H D ALT 150 H D Alkaline Phosphatase 43 Total Creatine Kinase 333 H CK-MB (Mass) 5.28 H Troponin I 0.0430 NT-Pro-B Natriuret Pep 1000 H Total Protein 7.0 Albumin 4.0 Globulin 2.9 Albumin/Globulin Ratio 1.4 Urine Color Urine Clarity Urine pH Ur Specific [place] Urine Protein Urine Glucose (UA) Urine Ketones Urine Blood Urine Nitrate Urine Bilirubin Urine Urobilinogen Ur Leukocyte Esterase Urine RBC (Auto) Urine Opiates Screen Urine Methadone Screen Ur Barbiturates Screen Ur Phencyclidine Scrn Ur Amphetamines Screen U Benzodiazepines Scrn U Oth Cocaine Metabols U Cannabinoids Screen Alcohol, Quantitative 186 H 06/28/17 06/28/17 06/28/17 20:18 20:18 22:30 WBC RBC Hgb Hct MCV MCH MCHC RDW Plt Count MPV Neut % (Auto) Lymph % (Auto) [place] % (Auto) Eos % (Auto) Baso % (Auto) Neut # (Auto) Lymph # (Auto) [place] # (Auto) Eos # (Auto) Baso # (Auto) PT INR APTT Sodium Potassium Chloride Carbon Dioxide Anion Gap BUN Creatinine Est GFR ( Amer) Est GFR (Non-Af Amer) Random Glucose Calcium Total Bilirubin AST ALT Alkaline Phosphatase Total Creatine Kinase CK-MB (Mass) Troponin I 0.0400 NT-Pro-B Natriuret Pep Total Protein Albumin Globulin Albumin/Globulin Ratio Urine Color Straw Urine Clarity Clear Urine pH 6.0 Ur Specific [place] 1.000 L Urine Protein Negative Urine Glucose (UA) Normal Urine Ketones Negative Urine Blood 2+ H Urine Nitrate Negative Urine Bilirubin Negative Urine Urobilinogen Normal Ur Leukocyte Esterase Neg Urine RBC (Auto) 15 H Urine Opiates Screen Negative Urine Methadone Screen Negative Ur Barbiturates Screen Negative Ur Phencyclidine Scrn Negative Ur Amphetamines Screen Negative U Benzodiazepines Scrn Negative U Oth Cocaine Metabols Negative U Cannabinoids Screen Negative Alcohol, Quantitative
--- NOTE | 2017-06-29 09:41 | CP.PCM.CON ---
Past Patient History - Infectious Disease Hx of Infectious Diseases: None - Past Medical History & Family History Past Medical History?: Yes - Past Social History Smoking Status: Former Smoker - CARDIAC Hx Congestive Heart Failure: Yes (with low EF) Hx Hypercholesterolemia: Yes Hx Hypertension: Yes Hx Pacemaker: Yes (AICD) - PULMONARY Hx Asthma: Yes Hx Bronchitis: Yes Hx Chronic Obstructive Pulmonary Disease (COPD): Yes - NEUROLOGICAL Hx Neurological Disorder: No - HEENT Hx HEENT Problems: No - RENAL Hx Chronic Kidney Disease: No - ENDOCRINE/METABOLIC Hx Endocrine Disorders: No - HEMATOLOGICAL/ONCOLOGICAL Hx Blood Disorders: No - INTEGUMENTARY Hx Dermatological Problems: No - MUSCULOSKELETAL/RHEUMATOLOGICAL Hx Musculoskeletal Disorders: No Hx Falls: No - GASTROINTESTINAL Hx Gastrointestinal Disorders: No - GENITOURINARY/GYNECOLOGICAL Hx Genitourinary Disorders: No - PSYCHIATRIC Hx Bipolar Disorder: Yes Hx Depression: Yes Hx Substance Use: No - SURGICAL HISTORY Hx Surgeries: Yes Hx Orthopedic Surgery: Yes (RIGHT LEG) Other/Comment: PACEMAKER/DEFIB INSERTION - ANESTHESIA Hx Anesthesia: Yes Hx Anesthesia Reactions: No Hx Malignant Hyperthermia: No Has any member of the family had a problem w/ anesthesia?: No Meds Allergies/Adverse Reactions: Allergies Allergy/AdvReac Type Severity Reaction Status Date / Time No Known Allergies Allergy Verified 06/28/17 08:32 - Medications Medications: Current Medications Albuterol Sulfate (Albuterol 0.083% Inhal Alisha (2.5 Mg/3 Ml) Ud) 2.5 mg INH RTID [facility] Last Admin: 06/29/17 08:25 Dose: 2.5 mg Aspirin (Ecotrin) 81 mg PO DAILY [facility] Bumetanide (Bumex) 1 mg PO BID [facility] Last Admin: 06/28/17 21:20 Dose: 1 mg Carvedilol (Coreg) 6.25 mg PO BID [facility] Last Admin: 06/28/17 18:05 Dose: 6.25 mg Digoxin (Digoxin) 0.125 mg PO DAILY@1800 [facility] Enoxaparin Sodium (Lovenox) 40 mg SC DAILY [facility] Multivitamins/Vitamin C 10 ml/Thiamine HCl 1 mg/ Folic Acid 1 mg/ Dextrose/ Sodium Chloride 1,010.21 mls @ 100 mls/hr IV Q24H [facility] Last Admin: 06/28/17 21:00 Dose: 100 mls/hr Lorazepam (Ativan) 1 mg IVP Q6H PRN PRN Reason: Anxiety Rosuvastatin Calcium (Crestor) 10 mg PO [facility] Last Admin: 06/28/17 21:20 Dose: 10 mg Sacubitril/Valsartan (Entresto 24 Mg-26 Mg) 1 tab PO DAILY [facility] Results - Vital Signs Recent Vital Signs: Last Vital Signs Temp 98.2 F 06/29/17 08:52 Pulse 78 06/29/17 08:52 Resp 20 06/29/17 08:52 BP 147/87 06/29/17 08:52 Pulse Ox 95 06/29/17 08:52 - Labs Result Diagrams: 06/28/17 09:31 06/28/17 09:31 Labs: Laboratory Results - last 24 hr 06/28/17 06/28/17 06/28/17 09:31 09:31 09:31 WBC 7.3 RBC 4.24 L Hgb 13.0 Hct 39.4 MCV 92.8 D MCH 30.7 MCHC 33.1 RDW 15.6 H Plt Count 231 MPV 7.8 Neut % (Auto) 57.0 Lymph % (Auto) 31.2 [place] % (Auto) 9.5 Eos % (Auto) 1.2 Baso % (Auto) 1.1 Neut # (Auto) 4.2 Lymph # (Auto) 2.3 [place] # (Auto) 0.7 Eos # (Auto) 0.1 Baso # (Auto) 0.1 PT 11.8 INR 1.0 APTT 36 H Sodium 141 Potassium 5.1 Chloride 105 Carbon Dioxide 22 Anion Gap 19 BUN 15 Creatinine 0.9 Est GFR ( Amer) > 60 Est GFR (Non-Af Amer) > 60 Random Glucose 77 Calcium 8.3 L Total Bilirubin 1.0 AST 147 H D ALT 150 H D Alkaline Phosphatase 43 Total Creatine Kinase 333 H CK-MB (Mass) 5.28 H Troponin I 0.0430 NT-Pro-B Natriuret Pep 1000 H Total Protein 7.0 Albumin 4.0 Globulin 2.9 Albumin/Globulin Ratio 1.4 Urine Color Urine Clarity Urine pH Ur Specific [place] Urine Protein Urine Glucose (UA) Urine Ketones Urine Blood Urine Nitrate Urine Bilirubin Urine Urobilinogen Ur Leukocyte Esterase Urine RBC (Auto) Urine Opiates Screen Urine Methadone Screen Ur Barbiturates Screen Ur Phencyclidine Scrn Ur Amphetamines Screen U Benzodiazepines Scrn U Oth Cocaine Metabols U Cannabinoids Screen Alcohol, Quantitative 186 H 06/28/17 06/28/17 06/28/17 20:18 20:18 22:30 WBC RBC Hgb Hct MCV MCH MCHC RDW Plt Count MPV Neut % (Auto) Lymph % (Auto) [place] % (Auto) Eos % (Auto) Baso % (Auto) Neut # (Auto) Lymph # (Auto) [place] # (Auto) Eos # (Auto) Baso # (Auto) PT INR APTT Sodium Potassium Chloride Carbon Dioxide Anion Gap BUN Creatinine Est GFR ( Amer) Est GFR (Non-Af Amer) Random Glucose Calcium Total Bilirubin AST ALT Alkaline Phosphatase Total Creatine Kinase CK-MB (Mass) Troponin I 0.0400 NT-Pro-B Natriuret Pep Total Protein Albumin Globulin Albumin/Globulin Ratio Urine Color Straw Urine Clarity Clear Urine pH 6.0 Ur Specific [place] 1.000 L Urine Protein Negative Urine Glucose (UA) Normal Urine Ketones Negative Urine Blood 2+ H Urine Nitrate Negative Urine Bilirubin Negative Urine Urobilinogen Normal Ur Leukocyte Esterase Neg Urine RBC (Auto) 15 H Urine Opiates Screen Negative Urine Methadone Screen Negative Ur Barbiturates Screen Negative Ur Phencyclidine Scrn Negative Ur Amphetamines Screen Negative U Benzodiazepines Scrn Negative U Oth Cocaine Metabols Negative U Cannabinoids Screen Negative Alcohol, Quantitative
[2017-06-29] MEDS: Sacubitril/Valsartan 24-26mg Tab PO SCH (10:28)
[2017-06-29] MEDS: Enoxaparin 40 mg Syringe SC SCH (10:28)
--- NOTE | 2017-06-29 11:16 | PCM.PSYCH ---
Initial Psychiatric Evaluation - Initial Psychiatric Evaluation Type of Admission: Voluntary Legal Status: Capacity Chief Complaint (in patient's own words): "I'm fine" History of Present Illness and Precipitating Events: The patient is seen, chart reviewed and case discussed. Consultation was requested for his alcohol use and psych history. This is a 56-year-old -[place] male, single with 1 child, lives alone, he does different jobs such as plumbing. The patient denies being Alcoholic and claims he drinks socially and he only drank "a little too much" recently when he was at a green party. He denies any complications or previous alcohol treatment. He also denies drug use and cigarette use. He was diagnosed with bipolar disorder and takes Celexa and Lamictal both from a psychiatrist. However, his Lamictal dose is very low 25mg and Celexa is contraindicated when patients have cardiac problems and he does. He denies any psych symptoms at this point. He also does not want any psych follow-up in the hospital. Past psych history: As above. No suicide attempts and no admissions. Family psych history: Denies Medical history: Heart problems. Current Medications: Active Medications Generic Name Dose Route Start Last Admin Trade Name Freq PRN Reason Stop Dose Admin Albuterol Sulfate 2.5 mg 06/28/17 18:00 06/29/17 08:25 Albuterol 0.083% Inhal Alisha (2.5 Mg/3 Ml) Ud INH 2.5 mg RTID [facility] Administration Aspirin 81 mg 06/29/17 10:00 06/29/17 10:28 Ecotrin PO 81 mg DAILY [facility] Administration Bumetanide 1 mg 06/28/17 18:00 06/29/17 10:28 Bumex PO 1 mg BID [facility] Administration Carvedilol 6.25 mg 06/28/17 18:00 06/29/17 10:28 Coreg PO 6.25 mg BID [facility] Administration Digoxin 0.125 mg 06/29/17 18:00 Digoxin PO DAILY@1800 [facility] Enoxaparin Sodium 40 mg 06/29/17 10:00 06/29/17 10:28 Lovenox SC 40 mg DAILY [facility] Administration Multivitamins/Vitamin C 10 ml/ 1,011.2 mls @ 100 mls/hr 06/29/17 10:45 Thiamine HCl 100 mg/ Folic IV Acid 1 mg/ Dextrose/Sodium Q24H [facility] Chloride Lorazepam 1 mg 06/28/17 17:20 Ativan IVP Q6H PRN Anxiety Rosuvastatin Calcium 10 mg 06/28/17 22:00 06/28/17 21:20 Crestor PO 10 mg HS [facility]U Administration Sacubitril/Valsartan 1 tab 06/29/17 10:00 06/29/17 10:28 Entresto 24 Mg-26 Mg PO 1 tab DAILY [facility] Administration Past Psychiatric History - Past Psychiatric History Previous Treatment History: Intensive Outpatient Pertinent Medical Hx (Current Medical&Sleep Prob, Allergies): Allergies Allergy/AdvReac Type Severity Reaction Status Date / Time No Known Allergies Allergy Verified 06/28/17 08:32 Albuterol Sulfate 2.5 mg NEB TID 02/18/17 Albuterol Sulfate [Proair Hfa] 2 puff IH Q4 PRN 02/18/17 Aspirin [Ecotrin] 81 mg PO DAILY 02/18/17 Bumetanide [Bumex] 1 mg PO BID 02/18/17 Carvedilol [Coreg] 6.25 mg PO BID 02/18/17 Digoxin [Lanoxin] 0.125 mg PO DAILY 02/18/17 Folic Acid 1 mg PO DAILY 02/18/17 Lisinopril 1 tab PO DAILY 02/18/17 Sacubitril/Valsartan [Entresto 24 mg-26 mg Tablet] 1 each PO DAILY 02/18/17 Simvastatin 40 mg PO DAILY 02/18/17 Review of Systems - Psychiatric Psychiatric: Abnormal Sleep Pattern. absent: Anxiety, Confusion, Depression, Hallucinations, Homicidal Ideation, Suicidal Ideation Mental Status Examination - Personal Presentation Personal Presentation: Looks stated age - Affect Affect: Broad - Motor Activity Motor Activity: Calm - Reliability in Providing Information Reliability in Providing Information: Good - Speech Speech: Organized - Mood Mood: Neutral - Formal Thought Process Formal Thought Process: No Impairment - Cognitive Functions Orientation: Person, Place, Situation, Time Sensorium: Alert Attention/Concentration: Attentive Estimate of Intelligence: Average Judgement: Intact, as evidence by: Insight regarding need for hospitalization Memory: Recent intact, as evidence by: Ability to recall events of the day, Remote intact, as evidenced by: Abilit to recall sig. life events - Risk Risk: Diminished functioning - Strength & Assets Inventory Strength & Assets Inventory: Cooperative DSM 5 DX - DSM 5 DSM 5 Diagnosis: Bipolar disorder, last episode unspecified - Recommended/Plan of Treatment Treatment Recommendations and Plan of Treatment: Continue Lamictal Replace Celexa with Lexapro Support and psychoeducation given Follow with outpatient psychiatrist Psych we will sign off 32 minutes
[2017-06-29 11:49] LABS: BASO # 0.1 K/uL (0.0-0.2); EOS # 0.2 K/uL (0.0-0.7); EOS % 2.4 % (0.0-4.0); HEMOGLOBIN 14.5 g/dL (12.0-18.0); LYMPH # 1.4 K/uL (1.0-4.3); LYMPH % 18.8 % (20.0-40.0); MEAN CELL VOLUME 92.2 fL (80.0-94.0); MEAN CORPUSCULAR HEMOGLOBIN 31.6 pg (27.0-31.0); MEAN CORPUSCULAR HGB CONC 34.3 g/dL (33.0-37.0); MEAN PLATELET VOLUME 8.2 fL (7.2-11.7); MONO # 0.7 K/uL (0.0-0.8); MONO % 9.4 % (0.0-10.0); NEUT # 5.3 K/uL (1.8-7.0); NEUT % 68.4 % (50.0-75.0); NRBC % 0.1 % (0.0-2.0); RBC 4.59 Mil/uL (4.40-5.90); RED CELL DISTRIBUTION WIDTH 15.8 % (11.5-14.5); WHITE BLOOD COUNT 7.7 K/uL (4.8-10.8)
--- NOTE | 2017-06-29 11:58 | CARD ---
APPROVED REPORT EKG Measurement Heart [id number] <Conclusion> Sinus bradycardia Left axis deviation Anteroseptal infarct, age undetermined T wave abnormality, consider lateral ischemia Abnormal ECG
[2017-06-29] MEDS: Multivitamin (MVI) 10 ML, Thiamine 100 MG, Folic Acid 1 MG in Dextrose 5%/0.45% NS 1,00... IV SCH (12:01)
[2017-06-29 12:13] LABS: CK-MB 1.59 ng/mL (0.0-3.38)
[2017-06-29 12:17] LABS: ALB/GLOB RATIO 1.2 (1.0-2.1); ALBUMIN 3.8 g/dL (3.5-5.0); ALT/SGPT 123 U/L (21-72); AST/SGOT 110 U/L (17-59); BLOOD UREA NITROGEN 13 mg/dL (9-20); CALCIUM 8.9 mg/dl (8.6-10.4); GFR AFRICAN-AMERICAN > 60; GFR NON-AFRICAN AMERICAN > 60
--- NOTE | 2017-06-29 16:00 | CP.PCM.PN ---
<CliveAnu - Last Filed: 06/29/17 16:15> Subjective - Date & Time of Evaluation Date of Evaluation: 06/29/17 Time of Evaluation: 08:00 - Subjective Subjective: PGY2 medicine progress note for Dr. Brant Seals: Patient was seen and examined at bedside this morning. 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 He stated that told this pain has resolved. He has no other complaints at this time. Patient recently had a cardiac cath with Dr. Webb which was normal. He denies fever, chills, shortness of breath, abdominal pain, nausea, vomiting, extremity numbness/weakness. Objective - Vital Signs/Intake and Output Vital Signs (last 24 hours): Temp Pulse Resp BP Pulse Ox 98.2 F 78 20 147/87 95 06/29/17 08:52 06/29/17 08:52 06/29/17 08:52 06/29/17 08:52 06/29/17 08:52 Intake and Output: 06/29/17 06/29/17 06:59 18:59 Intake Total 1100 400 Output Total 2900 1500 Balance -1800 -1100 - Medications Medications: Current Medications Albuterol Sulfate (Albuterol 0.083% Inhal Alisha (2.5 Mg/3 Ml) Ud) 2.5 mg INH RTID [facility] Last Admin: 06/29/17 13:27 Dose: 2.5 mg Aspirin (Ecotrin) 81 mg PO DAILY [facility] Last Admin: 06/29/17 10:28 Dose: 81 mg Bumetanide (Bumex) 1 mg PO BID [facility] Last Admin: 06/29/17 10:28 Dose: 1 mg Carvedilol (Coreg) 6.25 mg PO BID [facility] Last Admin: 06/29/17 10:28 Dose: 6.25 mg Digoxin (Digoxin) 0.125 mg PO DAILY@1800 [facility] Enoxaparin Sodium (Lovenox) 40 mg SC DAILY [facility] Last Admin: 06/29/17 10:28 Dose: 40 mg Escitalopram Oxalate (Lexapro) 10 mg PO DAILY [facility] Last Admin: 06/29/17 12:01 Dose: 10 mg Multivitamins/Vitamin C 10 ml/Thiamine HCl 100 mg/ Folic Acid 1 mg/ Dextrose/ Sodium Chloride 1,011.2 mls @ 100 mls/hr IV Q24H [facility] Last Admin: 06/29/17 12:01 Dose: 100 mls/hr Lamotrigine (Lamictal) 25 mg PO QPM [facility] Lorazepam (Ativan) 1 mg IVP Q6H PRN PRN Reason: Anxiety Rosuvastatin Calcium (Crestor) 10 mg PO HS [facility] Last Admin: 06/28/17 21:20 Dose: 10 mg Sacubitril/Valsartan (Entresto 24 Mg-26 Mg) 1 tab PO DAILY [facility] Last Admin: 06/29/17 10:28 Dose: 1 tab - Labs Labs: 06/29/17 11:44 06/29/17 11:44 PT 11.8 SECONDS (9.7-12.2) 06/28/17 09:31 INR 1.0 06/28/17 09:31 APTT 36 SECONDS (21-34) H 06/28/17 09:31 - Constitutional Appears: Non-toxic, No Acute Distress - Head Exam Head Exam: ATRAUMATIC, NORMAL INSPECTION - Eye Exam Eye Exam: EOMI Pupil Exam: NORMAL ACCOMODATION - ENT Exam ENT Exam: Mucous Membranes Moist - Respiratory Exam Respiratory Exam: Clear to Ausculation Bilateral, NORMAL BREATHING PATTERN. absent: Respiratory Distress - Cardiovascular Exam Cardiovascular Exam: REGULAR RHYTHM, +S1, +S2 - GI/Abdominal Exam GI & Abdominal Exam: Soft, Normal Bowel Sounds. absent: Distended, Firm, Guarding, Tenderness - Extremities Exam Extremities Exam: Normal Inspection. absent: Calf Tenderness - Back Exam Back Exam: NORMAL INSPECTION. absent: paraspinal tenderness - Neurological Exam Neurological Exam: Alert, Awake, Oriented x3 - Psychiatric Exam Psychiatric exam: Normal Affect, Normal Mood Assessment and Plan - Assessment and Plan (Free Text) Assessment: CHF with low EF Admitted for chest pain which has resolved Patient had AICD BNP 1000 ekg - Sinus Bradycardia at rate 59bpm. Left axis deviation. T wave inversions in V2-V6. No acute ST changes. Trop negative x 4 ASA 81mg PO daily Coreg 6.25 mg PO BID Digoxin 0.125 mg PO daily Bumex 1mg PO BID Entresto 24/26mg PO daily Transaminitis liken secondary to alcohol use f/u hepatitis Alcohl use disorder monitor for signs of withdrawal Alcohol level onadmission 186 ativan prn UDA negative MV/thiamine/FA COPD/asthma Albuterol prn controlled HTN Coreg 6.25 mg PO BID controlled HLD Crestor 10mg PO HS Bipolar disorder Lexapro 10mg PO daily Lamotrigina 25mg PO daily Ativan prn anxiety Psych consulted - help appreciated All management per Dr. Brant Seals. <Roseanna Seals - Last Filed: 06/30/17 11:52> Objective - Vital Signs/Intake and Output Vital Signs (last 24 hours): Temp Pulse Resp BP Pulse Ox 98.1 F 69 20 113/68 95 06/30/17 07:40 06/30/17 07:58 06/30/17 07:40 06/30/17 07:40 06/30/17 07:40 - Medications Medications: Current Medications Albuterol Sulfate (Albuterol 0.083% Inhal Alisha (2.5 Mg/3 Ml) Ud) 2.5 mg INH RTID [facility] Last Admin: 06/30/17 07:47 Dose: 2.5 mg Aspirin (Ecotrin) 81 mg PO DAILY [facility] Last Admin: 06/30/17 09:43 Dose: 81 mg Bumetanide (Bumex) 1 mg PO BID [facility] Last Admin: 06/30/17 09:43 Dose: 1 mg Carvedilol (Coreg) 6.25 mg PO BID [facility] Last Admin: 06/30/17 09:44 Dose: 6.25 mg Digoxin (Digoxin) 0.125 mg PO DAILY@1800 [facility] Last Admin: 06/29/17 18:11 Dose: 0.125 mg Enoxaparin Sodium (Lovenox) 40 mg SC DAILY [facility] Last Admin: 06/30/17 09:44 Dose: 40 mg Escitalopram Oxalate (Lexapro) 10 mg PO DAILY [facility] Last Admin: 06/30/17 09:43 Dose: 10 mg Multivitamins/Vitamin C 10 ml/Thiamine HCl 100 mg/ Folic Acid 1 mg/ Dextrose/ Sodium Chloride 1,011.2 mls @ 100 mls/hr IV Q24H [facility] Last Admin: 06/30/17 09:45 Dose: 100 mls/hr Lamotrigine (Lamictal) 25 mg PO QPM [facility] Last Admin: 06/29/17 18:11 Dose: 25 mg Lorazepam (Ativan) 1 mg IVP Q6H PRN PRN Reason: Anxiety Rosuvastatin Calcium (Crestor) 10 mg PO HS [facility] Last Admin: 06/29/17 21:19 Dose: 10 mg Sacubitril/Valsartan (Entresto 24 Mg-26 Mg) 1 tab PO DAILY [facility] Last Admin: 06/30/17 09:43 Dose: 1 tab - Labs Labs: 06/30/17 07:04 06/30/17 07:04 PT 11.8 SECONDS (9.7-12.2) 06/28/17 09:31 INR 1.0 06/28/17 09:31 APTT 36 SECONDS (21-34) H 06/28/17 09:31 Attending/Attestation - Attestation I have personally seen and examined this patient.: Yes I have fully participated in the care of the patient.: Yes I have reviewed all pertinent clinical information, including history, physical exam and plan: Yes Notes (Text): case seen and d.w staff and resident, concurred with finding and management..
[2017-06-29] MEDS: Digoxin 125 mcg (0.125 mg) Tab PO SCH (18:11)
--- NOTE | 2017-06-29 19:15 | CP.PCM.PN ---
Subjective - Date & Time of Evaluation Date of Evaluation: 06/29/17 Time of Evaluation: 10:40 - Subjective Subjective: clinically same Objective - Vital Signs/Intake and Output Vital Signs (last 24 hours): Temp Pulse Resp BP Pulse Ox 98.2 F 78 20 147/87 95 06/29/17 08:52 06/29/17 08:52 06/29/17 08:52 06/29/17 08:52 06/29/17 08:52 Intake and Output: 06/29/17 06/30/17 18:59 06:59 Intake Total 400 Output Total 1500 Balance -1100 - Medications Medications: Current Medications Albuterol Sulfate (Albuterol 0.083% Inhal Alisha (2.5 Mg/3 Ml) Ud) 2.5 mg INH RTID [facility] Last Admin: 06/29/17 13:27 Dose: 2.5 mg Aspirin (Ecotrin) 81 mg PO DAILY [facility] Last Admin: 06/29/17 10:28 Dose: 81 mg Bumetanide (Bumex) 1 mg PO BID [facility] Last Admin: 06/29/17 18:11 Dose: 1 mg Carvedilol (Coreg) 6.25 mg PO BID [facility] Last Admin: 06/29/17 18:11 Dose: 6.25 mg Digoxin (Digoxin) 0.125 mg PO DAILY@1800 [facility] Last Admin: 06/29/17 18:11 Dose: 0.125 mg Enoxaparin Sodium (Lovenox) 40 mg SC DAILY [facility] Last Admin: 06/29/17 10:28 Dose: 40 mg Escitalopram Oxalate (Lexapro) 10 mg PO DAILY [facility] Last Admin: 06/29/17 12:01 Dose: 10 mg Multivitamins/Vitamin C 10 ml/Thiamine HCl 100 mg/ Folic Acid 1 mg/ Dextrose/ Sodium Chloride 1,011.2 mls @ 100 mls/hr IV Q24H [facility] Last Admin: 06/29/17 12:01 Dose: 100 mls/hr Lamotrigine (Lamictal) 25 mg PO QPM [facility] Last Admin: 06/29/17 18:11 Dose: 25 mg Lorazepam (Ativan) 1 mg IVP Q6H PRN PRN Reason: Anxiety Rosuvastatin Calcium (Crestor) 10 mg PO HS [facility] Last Admin: 06/28/17 21:20 Dose: 10 mg Sacubitril/Valsartan (Entresto 24 Mg-26 Mg) 1 tab PO DAILY [facility] Last Admin: 06/29/17 10:28 Dose: 1 tab - Labs Labs: 06/29/17 11:44 06/29/17 11:44 PT 11.8 SECONDS (9.7-12.2) 06/28/17 09:31 INR 1.0 06/28/17 09:31 APTT 36 SECONDS (21-34) H 06/28/17 09:31 - Constitutional Appears: Well - Head Exam Head Exam: ATRAUMATIC, NORMAL INSPECTION, NORMOCEPHALIC - Eye Exam Eye Exam: EOMI, Normal appearance, PERRL Pupil Exam: NORMAL ACCOMODATION, PERRL - ENT Exam ENT Exam: Mucous Membranes Moist, Normal Exam - Neck Exam Neck Exam: Full ROM, Normal Inspection. absent: Lymphadenopathy - Respiratory Exam Respiratory Exam: Decreased Breath Sounds - Cardiovascular Exam Cardiovascular Exam: REGULAR RHYTHM, +S1, +S2 - GI/Abdominal Exam GI & Abdominal Exam: Soft, Diminished Bowel Sounds - Rectal Exam Rectal Exam: Deferred
[2017-06-30 07:23] LABS: BASO # 0.1 K/uL (0.0-0.2); BASO % 0.9 % (0.0-2.0); EOS # 0.3 K/uL (0.0-0.7); EOS % 4.2 % (0.0-4.0); HEMOGLOBIN 14.2 g/dL (12.0-18.0); LYMPH # 1.5 K/uL (1.0-4.3); LYMPH % 24.4 % (20.0-40.0); MEAN CELL VOLUME 91.6 fL (80.0-94.0); MEAN CORPUSCULAR HEMOGLOBIN 30.9 pg (27.0-31.0); MEAN CORPUSCULAR HGB CONC 33.7 g/dL (33.0-37.0); MEAN PLATELET VOLUME 8.1 fL (7.2-11.7); MONO # 0.6 K/uL (0.0-0.8); MONO % 9.2 % (0.0-10.0); NEUT # 3.8 K/uL (1.8-7.0); NEUT % 61.3 % (50.0-75.0); NRBC % 0.1 % (0.0-2.0); RBC 4.6 Mil/uL (4.40-5.90); RED CELL DISTRIBUTION WIDTH 15.1 % (11.5-14.5); WHITE BLOOD COUNT 6.2 K/uL (4.8-10.8)
[2017-06-30 07:37] LABS: ALB/GLOB RATIO 1.3 (1.0-2.1); ALBUMIN 3.4 g/dL (3.5-5.0); ALT/SGPT 89 U/L (21-72); AST/SGOT 67 U/L (17-59); BLOOD UREA NITROGEN 12 mg/dL (9-20); CALCIUM 8.7 mg/dl (8.6-10.4); GFR AFRICAN-AMERICAN > 60; GFR NON-AFRICAN AMERICAN > 60
[2017-06-30] MEDS: Albuterol 0.083% Inhal Sol (2.5 mg/3 mL) UD INH SCH ×3 (07:47→19:13)
[2017-06-30] MEDS ORDERED: Magnesium Sulfate 1 gm in D5W 1 GM/100 ML BAG IVPB ONE (08:00)
[2017-06-30 08:30] LABS: HEPATITIS B SURFACE AG Negative (NEGATIVE)
[2017-06-30 08:37] LABS: HEPATITIS A IGM NEGATIVE (NEGATIVE); HEPATITIS B CORE AB NEGATIVE (NEGATIVE)
[2017-06-30 08:48] LABS: HEPATITIS C ANTIBODY NEGATIVE (NEGATIVE)
[2017-06-30] MEDS: Sacubitril/Valsartan 24-26mg Tab PO SCH (09:43)
[2017-06-30] MEDS: Enoxaparin 40 mg Syringe SC SCH (09:44)
[2017-06-30] MEDS: Multivitamin (MVI) 10 ML, Thiamine 100 MG, Folic Acid 1 MG in Dextrose 5%/0.45% NS 1,00... IV SCH (09:45)
--- NOTE | 2017-06-30 10:38 | CP.PCM.PN ---
Subjective - Date & Time of Evaluation Date of Evaluation: 06/30/17 Time of Evaluation: 10:35 - Subjective Subjective: PGY2 progress note for Dr. Seals Patient seen and examined at bedside. No acute events overnight. Pt resting quite comfortably in bed. Denies having any CP, SOB, abd pain, N/V/D/c, F/C. Pt tolerating diet. Denies having any tremors, agitation or hallucinations. Objective - Vital Signs/Intake and Output Vital Signs (last 24 hours): Temp Pulse Resp BP Pulse Ox 98.1 F 69 20 113/68 95 06/30/17 07:40 06/30/17 07:58 06/30/17 07:40 06/30/17 07:40 06/30/17 07:40 - Medications Medications: Current Medications Albuterol Sulfate (Albuterol 0.083% Inhal Alisha (2.5 Mg/3 Ml) Ud) 2.5 mg INH RTID [facility] Last Admin: 06/30/17 07:47 Dose: 2.5 mg Aspirin (Ecotrin) 81 mg PO DAILY [facility] Last Admin: 06/30/17 09:43 Dose: 81 mg Bumetanide (Bumex) 1 mg PO BID [facility] Last Admin: 06/30/17 09:43 Dose: 1 mg Carvedilol (Coreg) 6.25 mg PO BID [facility] Last Admin: 06/30/17 09:44 Dose: 6.25 mg Digoxin (Digoxin) 0.125 mg PO DAILY@1800 [facility] Last Admin: 06/29/17 18:11 Dose: 0.125 mg Enoxaparin Sodium (Lovenox) 40 mg SC DAILY [facility] Last Admin: 06/30/17 09:44 Dose: 40 mg Escitalopram Oxalate (Lexapro) 10 mg PO DAILY [facility] Last Admin: 06/30/17 09:43 Dose: 10 mg Multivitamins/Vitamin C 10 ml/Thiamine HCl 100 mg/ Folic Acid 1 mg/ Dextrose/ Sodium Chloride 1,011.2 mls @ 100 mls/hr IV Q24H [facility] Last Admin: 06/30/17 09:45 Dose: 100 mls/hr Lamotrigine (Lamictal) 25 mg PO QPM [facility] Last Admin: 06/29/17 18:11 Dose: 25 mg Lorazepam (Ativan) 1 mg IVP Q6H PRN PRN Reason: Anxiety Rosuvastatin Calcium (Crestor) 10 mg PO HS [facility] Last Admin: 06/29/17 21:19 Dose: 10 mg Sacubitril/Valsartan (Entresto 24 Mg-26 Mg) 1 tab PO DAILY [facility] Last Admin: 06/30/17 09:43 Dose: 1 tab - Labs Labs: 06/30/17 07:04 06/30/17 07:04 PT 11.8 SECONDS (9.7-12.2) 06/28/17 09:31 INR 1.0 06/28/17 09:31 APTT 36 SECONDS (21-34) H 06/28/17 09:31 - Constitutional Appears: Non-toxic, No Acute Distress - Head Exam Head Exam: ATRAUMATIC - ENT Exam ENT Exam: Mucous Membranes Moist - Respiratory Exam Respiratory Exam: Clear to Ausculation Bilateral, NORMAL BREATHING PATTERN. absent: Accessory Muscle Use, Rales, Rhonchi, Wheezes - Cardiovascular Exam Cardiovascular Exam: REGULAR RHYTHM, +S1, +S2. absent: Gallop, Rubs, Murmur - GI/Abdominal Exam GI & Abdominal Exam: Soft, Normal Bowel Sounds. absent: Distended, Firm, Guarding, Rigid, Tenderness, Organomegaly - Extremities Exam Extremities Exam: absent: Pedal Edema, Tenderness - Neurological Exam Neurological Exam: Alert, Awake, Oriented x3 - Psychiatric Exam Psychiatric exam: Normal Affect, Normal Mood - Skin Skin Exam: Dry, Intact, Normal Color, Warm Assessment and Plan - Assessment and Plan (Free Text) Assessment: CHF with low EF Admitted for chest pain which has resolved Patient had AICD BNP 1000 ekg - Sinus Bradycardia at rate 59bpm. Left axis deviation. T wave inversions in V2-V6. No acute ST changes. Trop negative x 4 ASA 81mg PO daily Coreg 6.25 mg PO BID Digoxin 0.125 mg PO daily Bumex 1mg PO BID Entresto 24/26mg PO daily Cardio, Dr. Webb consulted. Recommend no intervention at this time. Recommend outpt follow up Transaminitis trending down liken secondary to alcohol use Hepatitis panel negative Alcohl use disorder Pt states he does not drink ETOH on regular basis. monitor for signs of withdrawal Alcohol level on admission 186 ativan prn UDA negative MV/thiamine/FA COPD/asthma Albuterol prn controlled HTN Coreg 6.25 mg PO BID controlled HLD Crestor 10mg PO HS Bipolar disorder Lexapro 10mg PO daily Lamotrigine 25mg PO daily Ativan prn anxiety Psych consulted - recommend outpt follow up All management per Dr. Brant Seals.
[2017-06-30] MEDS: Digoxin 125 mcg (0.125 mg) Tab PO SCH (17:18)
[2017-06-30 17:20] VITALS: PULSE 64
--- NOTE | 2017-06-30 19:32 | CP.PCM.PN ---
Subjective - Date & Time of Evaluation Date of Evaluation: 06/30/17 Time of Evaluation: 09:40 - Subjective Subjective: clinically same Objective - Vital Signs/Intake and Output Vital Signs (last 24 hours): Temp Pulse Resp BP Pulse Ox 97.6 F 73 18 103/60 95 06/30/17 15:36 06/30/17 15:36 06/30/17 15:36 06/30/17 15:36 06/30/17 15:36 Intake and Output: 06/30/17 07/01/17 18:59 06:59 Intake Total 1200 Output Total 1800 Balance -600 - Medications Medications: Current Medications Albuterol Sulfate (Albuterol 0.083% Inhal Alisha (2.5 Mg/3 Ml) Ud) 2.5 mg INH RTID [facility] Last Admin: 06/30/17 19:13 Dose: 2.5 mg Aspirin (Ecotrin) 81 mg PO DAILY [facility] Last Admin: 06/30/17 09:43 Dose: 81 mg Bumetanide (Bumex) 1 mg PO BID [facility] Last Admin: 06/30/17 17:18 Dose: 1 mg Carvedilol (Coreg) 6.25 mg PO BID [facility] Last Admin: 06/30/17 17:20 Dose: Not Given Digoxin (Digoxin) 0.125 mg PO DAILY@1800 [facility] Last Admin: 06/30/17 17:18 Dose: 0.125 mg Enoxaparin Sodium (Lovenox) 40 mg SC DAILY [facility] Last Admin: 06/30/17 09:44 Dose: 40 mg Escitalopram Oxalate (Lexapro) 10 mg PO DAILY [facility] Last Admin: 06/30/17 09:43 Dose: 10 mg Multivitamins/Vitamin C 10 ml/Thiamine HCl 100 mg/ Folic Acid 1 mg/ Dextrose/ Sodium Chloride 1,011.2 mls @ 100 mls/hr IV Q24H [facility] Last Admin: 06/30/17 09:45 Dose: 100 mls/hr Lamotrigine (Lamictal) 25 mg PO QPM [facility] Last Admin: 06/30/17 17:18 Dose: 25 mg Lorazepam (Ativan) 1 mg IVP Q6H PRN PRN Reason: Anxiety Rosuvastatin Calcium (Crestor) 10 mg PO HS [facility] Last Admin: 06/29/17 21:19 Dose: 10 mg Sacubitril/Valsartan (Entresto 24 Mg-26 Mg) 1 tab PO DAILY [facility] Last Admin: 06/30/17 09:43 Dose: 1 tab - Labs Labs: 06/30/17 07:04 06/30/17 07:04 PT 11.8 SECONDS (9.7-12.2) 06/28/17 09:31 INR 1.0 06/28/17 09:31 APTT 36 SECONDS (21-34) H 06/28/17 09:31 - Constitutional Appears: Well - Head Exam Head Exam: ATRAUMATIC, NORMAL INSPECTION, NORMOCEPHALIC - Eye Exam Eye Exam: EOMI, Normal appearance, PERRL Pupil Exam: NORMAL ACCOMODATION, PERRL - ENT Exam ENT Exam: Mucous Membranes Moist, Normal Exam - Neck Exam Neck Exam: Full ROM, Normal Inspection. absent: Lymphadenopathy - Respiratory Exam Respiratory Exam: Decreased Breath Sounds - Cardiovascular Exam Cardiovascular Exam: REGULAR RHYTHM, +S1, +S2 - GI/Abdominal Exam GI & Abdominal Exam: Soft, Diminished Bowel Sounds - Rectal Exam Rectal Exam: Deferred
[2017-07-01 01:37] VITALS: RESP 20
[2017-07-01] MEDS: Albuterol 0.083% Inhal Sol (2.5 mg/3 mL) UD INH SCH (07:40)
[2017-07-01 10:15] VITALS: BP 110/57; PULSE 65; TEMP 97.6; O2SAT 96
[2017-07-01] MEDS: Multivitamin (MVI) 10 ML, Thiamine 100 MG, Folic Acid 1 MG in Dextrose 5%/0.45% NS 1,00... IV SCH (10:23)
[2017-07-01] MEDS: Enoxaparin 40 mg Syringe SC SCH (10:23)
[2017-07-01] MEDS: Sacubitril/Valsartan 24-26mg Tab PO SCH (10:23)
--- NOTE | 2017-07-01 18:03 | CP.PCM.PN ---
Objective - Vital Signs/Intake and Output Vital Signs (last 24 hours): Temp Pulse Resp BP Pulse Ox 97.6 F 65 20 110/57 L 96 07/01/17 08:00 07/01/17 08:00 07/01/17 08:00 07/01/17 08:00 07/01/17 08:00 Intake and Output: 07/01/17 07/01/17 06:59 18:59 Output Total 2800 Balance -2800 - Labs Labs: 06/30/17 07:04 06/30/17 07:04 PT 11.8 SECONDS (9.7-12.2) 06/28/17 09:31 INR 1.0 06/28/17 09:31 APTT 36 SECONDS (21-34) H 06/28/17 09:31 Assessment and Plan - Assessment and Plan (Free Text) Assessment: Patient admitted with chest pain, chf exacerbation, being discharged as per DR Brant Seals Alert and orientedx3, no sob or chest pains. Instructed to follow up with DR Webb in the office in 1 week.
== END 2017-07-01 13:30 | disposition home or self-care (01) | DRG 127 ==
LOC: C.ER 08:09 → C.6T 14:00
PROVIDERS: ADMIT Internal Medicine Nephrology; ATTEND Internal Medicine Nephrology
DX: I11.0 Hypertensive heart disease with heart failure (principal); J44.9 Chronic obstructive pulmonary disease, unspecified; I42.8 Other cardiomyopathies; I50.9 Heart failure, unspecified; F31.9 Bipolar disorder, unspecified; E78.00 Pure hypercholesterolemia, unspecified; Z95.810 Presence of automatic (implantable) cardiac defibrillator; Z87.891 Personal history of nicotine dependence; R00.1 Bradycardia, unspecified; R74.0 Nonspecific elevation of levels of transaminase and lactic acid dehydrogenase [LDH]; F10.20 Alcohol dependence, uncomplicated; Y90.6 Blood alcohol level of 120-199 mg/100 ml

== ENCOUNTER 2017-11-28 11:28 | Observation (INO) | payer MEDICAID ==
[2017-11-28 11:29] VITALS: PULSE 64
[2017-11-28] MEDS ORDERED: Aspirin 325 mg EC Tablets PO STA (12:20)
--- NOTE | 2017-11-28 12:20 | C.PDOC ---
History Of Present Illness 57 y/o male presents to ED with c/o chest pain for 1 hour sudden onset while he was climbing up stairs associated with sob and nausea. Patient states chest pain continued despite of being at rest and states symptoms have been intermittently for 1 year, lasting several days. Patient is compliant with eliquis and states he was diagnosed with a PE "months ago", takes nitro and took it today with no improvement. Patient denies AICD discharge, fever, chills or any other complaints at this time. 06/29/17 09:37 nonischemic cardomyopathy s/p AICD cardiac cath 05/2017 <Angela Lentz - Last Filed: 11/28/17 13:04> History Per: Patient History/Exam Limitations: no limitations Onset/Duration Of Symptoms: Days Current Symptoms Are (Timing): Still Present <Angela Lentz - Last Filed: 11/28/17 13:04> <Preethi Bragg - Last Filed: 12/02/17 05:16> Time Seen by Provider: 11/28/17 12:09 Chief Complaint (Nursing): Chest Pain Past Medical History Reviewed: Historical Data, Nursing Documentation, Vital Signs Vital Signs: Last Vital Signs Temp 98.2 F 11/28/17 11:36 Pulse 100 H 11/28/17 11:36 Resp 29 H 11/28/17 11:36 BP 109/69 11/28/17 11:36 Pulse Ox 99 11/28/17 11:36 - Medical History PMH: Asthma, Bipolar Disorder, Bronchitis, CHF (with low EF), COPD, Depression, HTN, Hypercholesterolemia Surgical History: Pacemaker (AICD) Family History: States: No Known Family Hx - Social History Hx Tobacco Use: No (Quit) Hx Alcohol Use: No Hx Substance Use: No - Immunization History Hx Tetanus Toxoid Vaccination: No Hx Influenza Vaccination: No Hx Pneumococcal Vaccination: No <Angela Lentz - Last Filed: 11/28/17 13:04> Vital Signs: Last Vital Signs Temp 98.2 F 11/28/17 11:36 Pulse 100 H 11/28/17 11:36 Resp 29 H 11/28/17 11:36 BP 109/69 11/28/17 11:36 Pulse Ox 99 11/28/17 13:04 <Preethi Bragg - Last Filed: 12/02/17 05:16> Review Of Systems Constitutional: Negative for: Fever, Chills Cardiovascular: Positive for: Chest Pain Respiratory: Positive for: Shortness of Breath. Negative for: Cough Gastrointestinal: Positive for: Nausea. Negative for: Vomiting, Abdominal Pain Skin: Negative for: Rash <Angela Lentz - Last Filed: 11/28/17 13:04> Physical Exam - Physical Exam Appears: Non-toxic, Other (In mild distress) Skin: Warm, Dry, No Rash Head: Atraumatic, Normacephalic Oral Mucosa: Moist Neck: Supple Cardiovascular: Rhythm Regular Respiratory: Normal Breath Sounds, No Rales, No Rhonchi, No Wheezing Gastrointestinal/Abdominal: Soft, No Tenderness, No Guarding, No Rebound Extremity: Normal ROM, No Pedal Edema, No Calf Tenderness, Capillary Refill (<2 seconds) Neurological/Psych: Oriented x3, Normal Speech, Normal Cognition <TorAngela - Last Filed: 11/28/17 13:04> ED Course And Treatment - Laboratory Results Result Diagrams: 11/28/17 12:25 11/28/17 12:25 ECG: Interpreted By Me, Viewed By Me ECG Rhythm: Sinus Rhythm, PVC ECG Interpretation: No Changes From Prior (on 06/28/17) Rate From EC (BPM) O2 Sat by Pulse Oximetry: 99 (RA) Pulse Ox Interpretation: Normal <Angela Lentz - Last Filed: 11/28/17 13:04> - Laboratory Results Result Diagrams: 11/28/17 12:25 11/28/17 12:25 <Preethi Bragg - Last Filed: 12/02/17 05:16> Progress - Re-Evaluation Re-evaluation Note: 11/28/17 12:31 Patient [employer] is located at [facility] - Data Reviewed Data Reviewed: Lab, Diagnostic imaging, EKG, Old records - Critical Care Citical Care: Excluding Proc Time Critical Care Time: 90 minutes <TorAngela - Last Filed: 11/28/17 13:04> Disposition Counseled Patient/Family Regarding: Studies Performed, Diagnosis - Disposition Disposition Time: 13:00 <TorAngela - Last Filed: 11/28/17 13:04> <Preethi Bragg - Last Filed: 12/02/17 05:16> - Disposition Disposition: HOSPITALIZED Condition: SERIOUS - Clinical Impression Clinical Impression: Unstable angina - Scribe Statement The provider has reviewed the documentation as recorded by the Scribe Daylin Bui All medical record entries made by the Scribe were at my direction and p ersonally dictated by me. I have reviewed the chart and agree that the record accurately reflects my personal performance of the history, physical exam, medical decision making, and the department course for this patient. I have also personally directed, reviewed, and agree with the discharge instructions and disposition. <TorAngela - Last Filed: 11/28/17 13:04> Physician Patient Turnover Patient Signed Over To: Preethi Bragg Handoff Comments: MELONIE OPAL DISPO <TorAngela - Last Filed: 11/28/17 13:04> Addendum Addendum: 11/28/17 13:[address] Lehman (covering for Dr. Brant Seals), he agrees with telemetry admission for chest pain, dyspnea, stable angina. Consult entered for Dr. Webb, cardiology. <Preethi Bragg - Last Filed: 12/02/17 05:16> Decision To Admit <TorAngela - Last Filed: 11/28/17 13:04> - Pt Status Changed To: Hospital Disposition Of: Inpatient - Admit Certification Admit to Inpatient:: After my assessment, the patient will require hospitalization for at least two midnights. This is because of the severity of symptoms shown, intensity of services needed, and/or the medical risk in this patient being treated as an outpatient. - InPatient: Physician Admission Certification: I certify that this patient requires 2 or more midnights of care for the following reason:: see notes - . Bed Request Type: Telemetry Admitting Physician: Mary Lehman <Preethi Bragg - Last Filed: 12/02/17 05:16> - . Patient Diagnosis: Chest pain, Dyspnea, Stable angina
[2017-11-28] MEDS ORDERED: Morphine 4 MG/ML VIAL ONE (12:29)
[2017-11-28 12:31] LABS: BASO # 0.1 K/uL (0.0-0.2); BASO % 0.9 % (0.0-2.0); EOS # 0.1 K/uL (0.0-0.7); EOS % 1.7 % (0.0-4.0); HEMOGLOBIN 12.3 g/dL (12.0-18.0); LYMPH # 1.4 K/uL (1.0-4.3); LYMPH % 18.8 % (20.0-40.0); MEAN CELL VOLUME 92.6 fL (80.0-94.0); MEAN CORPUSCULAR HEMOGLOBIN 31.3 pg (27.0-31.0); MEAN CORPUSCULAR HGB CONC 33.8 g/dL (33.0-37.0); MEAN PLATELET VOLUME 8.2 fL (7.2-11.7); MONO # 0.8 K/uL (0.0-0.8); MONO % 10.3 % (0.0-10.0); NEUT % 68.3 % (50.0-75.0); RBC 3.94 Mil/uL (4.40-5.90); RED CELL DISTRIBUTION WIDTH 15.3 % (11.5-14.5); WHITE BLOOD COUNT 7.3 K/uL (4.8-10.8)
[2017-11-28 12:39] LABS: INR 1.3; PROTHROMBIN TIME 14.5 SECONDS (9.7-12.2)
[2017-11-28 12:51] LABS: ALB/GLOB RATIO 1.4 (1.0-2.1); ALBUMIN 3.6 g/dL (3.5-5.0); ALT/SGPT 55 U/L (21-72); AST/SGOT 64 U/L (17-59); BLOOD UREA NITROGEN 14 mg/dL (9-20); CALCIUM 8.7 mg/dl (8.6-10.4); GFR NON-AFRICAN AMERICAN > 60
--- NOTE | 2017-11-28 15:07 | RAD ---
HISTORY: chest pain COMPARISON: CT chest with contrast performed 02/19/17 TECHNIQUE: Chest, one view. FINDINGS: LUNGS: Mild pulmonary venous congestion. No focal consolidation. Please note that chest x-ray has limited sensitivity for the detection of pulmonary masses. PLEURA: No significant pleural effusion identified. No definite pneumothorax . CARDIOVASCULAR: Bilateral hilar prominence. Cardiomegaly. Single lead left-sided pacemaker. OSSEOUS STRUCTURES: Degenerative changes. VISUALIZED UPPER ABDOMEN: Unremarkable. OTHER FINDINGS: None. IMPRESSION: Cardiomegaly. Single lead left-sided pacemaker. Bilateral hilar prominence. Mild pulmonary venous congestion.
--- NOTE | 2017-11-28 16:06 | CP.PCM.HP ---
Past Patient History - Infectious Disease Hx of Infectious Diseases: None - Past Medical History & Family History Past Medical History?: Yes - Past Social History Smoking Status: Former Smoker - CARDIAC Hx Congestive Heart Failure: Yes (with low EF) Hx Hypercholesterolemia: Yes Hx Hypertension: Yes Hx Pacemaker: Yes (AICD) - PULMONARY Hx Asthma: Yes Hx Bronchitis: Yes Hx Chronic Obstructive Pulmonary Disease (COPD): Yes - NEUROLOGICAL Hx Neurological Disorder: No - HEENT Hx HEENT Problems: No - RENAL Hx Chronic Kidney Disease: No - ENDOCRINE/METABOLIC Hx Endocrine Disorders: No - HEMATOLOGICAL/ONCOLOGICAL Hx Blood Disorders: No - INTEGUMENTARY Hx Dermatological Problems: No - MUSCULOSKELETAL/RHEUMATOLOGICAL Hx Musculoskeletal Disorders: No Hx Falls: No - GASTROINTESTINAL Hx Gastrointestinal Disorders: No - GENITOURINARY/GYNECOLOGICAL Hx Genitourinary Disorders: No - PSYCHIATRIC Hx Bipolar Disorder: Yes Hx Depression: Yes Hx Substance Use: No - SURGICAL HISTORY Hx Surgeries: Yes Hx Orthopedic Surgery: Yes (RIGHT LEG) Other/Comment: PACEMAKER/DEFIB INSERTION - ANESTHESIA Hx Anesthesia: Yes Hx Anesthesia Reactions: No Hx Malignant Hyperthermia: No Meds Allergies/Adverse Reactions: Allergies Allergy/AdvReac Type Severity Reaction Status Date / Time No Known Allergies Allergy Verified 06/28/17 08:32 Physical Exam - Constitutional Appears: Well - Head Exam Head Exam: ATRAUMATIC, NORMAL INSPECTION, NORMOCEPHALIC - Eye Exam Eye Exam: EOMI, Normal appearance, PERRL Pupil Exam: NORMAL ACCOMODATION, PERRL - ENT Exam ENT Exam: Mucous Membranes Moist, Normal Exam - Neck Exam Neck exam: Positive for: Normal Inspection - Respiratory Exam Respiratory Exam: Decreased Breath Sounds - Cardiovascular Exam Cardiovascular Exam: REGULAR RHYTHM, +S1, +S2 - GI/Abdominal Exam GI & Abdominal Exam: Diminished Bowel Sounds, Soft - Rectal Exam Rectal Exam: Deferred Results - Vital Signs Recent Vital Signs: Last Vital Signs Temp 98 F 11/28/17 14:53 Pulse 89 11/28/17 14:53 Resp 18 11/28/17 14:53 BP 117/67 11/28/17 14:53 Pulse Ox 98 11/28/17 14:53 - Labs Result Diagrams: 11/28/17 12:25 11/28/17 12:25 Labs: Laboratory Results - last 24 hr 11/28/17 11/28/17 11/28/17 12:25 12:25 12:25 WBC 7.3 RBC 3.94 L Hgb 12.3 Hct 36.5 MCV 92.6 MCH 31.3 H MCHC 33.8 RDW 15.3 H Plt Count 213 MPV 8.2 Neut % (Auto) 68.3 Lymph % (Auto) 18.8 L [place] % (Auto) 10.3 H Eos % (Auto) 1.7 Baso % (Auto) 0.9 Neut # (Auto) 5.0 Lymph # (Auto) 1.4 [place] # (Auto) 0.8 Eos # (Auto) 0.1 Baso # (Auto) 0.1 PT 14.5 H INR 1.3 APTT 35 H Sodium 140 Potassium 3.6 Chloride 101 Carbon Dioxide 27 Anion Gap 15 BUN 14 Creatinine 0.9 Est GFR ( Amer) > 60 Est GFR (Non-Af Amer) > 60 Random Glucose 89 Calcium 8.7 Total Bilirubin 1.5 H AST 64 H ALT 55 Alkaline Phosphatase 41 Troponin I 0.0390 NT-Pro-B Natriuret Pep Total Protein 6.3 Albumin 3.6 Globulin 2.6 Albumin/Globulin Ratio 1.4 11/28/17 13:57 WBC RBC Hgb Hct MCV MCH MCHC RDW Plt Count MPV Neut % (Auto) Lymph % (Auto) [place] % (Auto) Eos % (Auto) Baso % (Auto) Neut # (Auto) Lymph # (Auto) [place] # (Auto) Eos # (Auto) Baso # (Auto) PT INR APTT Sodium Potassium Chloride Carbon Dioxide Anion Gap BUN Creatinine Est GFR ( Amer) Est GFR (Non-Af Amer) Random Glucose Calcium Total Bilirubin AST ALT Alkaline Phosphatase Troponin I NT-Pro-B Natriuret Pep 2020 H Total Protein Albumin Globulin Albumin/Globulin Ratio
--- NOTE | 2017-11-28 17:32 | CP.PCM.CON ---
Past Patient History - Infectious Disease Hx of Infectious Diseases: None - Past Medical History & Family History Past Medical History?: Yes - Past Social History Smoking Status: Former Smoker - CARDIAC Hx Congestive Heart Failure: Yes (with low EF) Hx Hypercholesterolemia: Yes Hx Hypertension: Yes Hx Pacemaker: Yes (AICD) - PULMONARY Hx Asthma: Yes Hx Bronchitis: Yes Hx Chronic Obstructive Pulmonary Disease (COPD): Yes - NEUROLOGICAL Hx Neurological Disorder: No - HEENT Hx HEENT Problems: No - RENAL Hx Chronic Kidney Disease: No - ENDOCRINE/METABOLIC Hx Endocrine Disorders: No - HEMATOLOGICAL/ONCOLOGICAL Hx Blood Disorders: No - INTEGUMENTARY Hx Dermatological Problems: No - MUSCULOSKELETAL/RHEUMATOLOGICAL Hx Musculoskeletal Disorders: No Hx Falls: No - GASTROINTESTINAL Hx Gastrointestinal Disorders: No - GENITOURINARY/GYNECOLOGICAL Hx Genitourinary Disorders: No - PSYCHIATRIC Hx Bipolar Disorder: Yes Hx Depression: Yes Hx Substance Use: No - SURGICAL HISTORY Hx Surgeries: Yes Hx Orthopedic Surgery: Yes (RIGHT LEG) Other/Comment: PACEMAKER/DEFIB INSERTION - ANESTHESIA Hx Anesthesia: Yes Hx Anesthesia Reactions: No Hx Malignant Hyperthermia: No Meds Allergies/Adverse Reactions: Allergies Allergy/AdvReac Type Severity Reaction Status Date / Time No Known Allergies Allergy Verified 06/28/17 08:32 - Medications Medications: Current Medications Albuterol Sulfate (Albuterol 0.083% Inhal Alisha (2.5 Mg/3 Ml) Ud) 2.5 mg INH TID [facility] Aspirin (Ecotrin) 81 mg PO DAILY [facility] Enoxaparin Sodium (Lovenox) 40 mg SC DAILY [facility] Escitalopram Oxalate (Lexapro) 10 mg PO DAILY [facility] Furosemide (Lasix) 40 mg IVP Q12 [facility] Home Med (Lisinopril) 1 tab PO DAILY [facility] Home Med (Simvastatin [Simvastatin]) 40 mg PO DAILY [facility] Lamotrigine (Lamictal) 25 mg PO QPM [facility] Multivitamins (Hexavitamin) tab PO DAILY [facility] Thiamine HCl (Vitamin B1 Tab) 100 mg PO DAILY [facility] Results - Vital Signs Recent Vital Signs: Last Vital Signs Temp 98.6 F 11/28/17 16:34 Pulse 84 11/28/17 16:34 Resp 16 11/28/17 16:34 BP 103/67 11/28/17 16:39 Pulse Ox 95 11/28/17 16:34 - Labs Result Diagrams: 11/28/17 12:25 11/28/17 12:25 Labs: Laboratory Results - last 24 hr 11/28/17 11/28/17 11/28/17 12:25 12:25 12:25 WBC 7.3 RBC 3.94 L Hgb 12.3 Hct 36.5 MCV 92.6 MCH 31.3 H MCHC 33.8 RDW 15.3 H Plt Count 213 MPV 8.2 Neut % (Auto) 68.3 Lymph % (Auto) 18.8 L [place] % (Auto) 10.3 H Eos % (Auto) 1.7 Baso % (Auto) 0.9 Neut # (Auto) 5.0 Lymph # (Auto) 1.4 [place] # (Auto) 0.8 Eos # (Auto) 0.1 Baso # (Auto) 0.1 PT 14.5 H INR 1.3 APTT 35 H Sodium 140 Potassium 3.6 Chloride 101 Carbon Dioxide 27 Anion Gap 15 BUN 14 Creatinine 0.9 Est GFR ( Amer) > 60 Est GFR (Non-Af Amer) > 60 Random Glucose 89 Calcium 8.7 Total Bilirubin 1.5 H AST 64 H ALT 55 Alkaline Phosphatase 41 Troponin I 0.0390 NT-Pro-B Natriuret Pep Total Protein 6.3 Albumin 3.6 Globulin 2.6 Albumin/Globulin Ratio 1.4 11/28/17 13:57 WBC RBC Hgb Hct MCV MCH MCHC RDW Plt Count MPV Neut % (Auto) Lymph % (Auto) [place] % (Auto) Eos % (Auto) Baso % (Auto) Neut # (Auto) Lymph # (Auto) [place] # (Auto) Eos # (Auto) Baso # (Auto) PT INR APTT Sodium Potassium Chloride Carbon Dioxide Anion Gap BUN Creatinine Est GFR ( Amer) Est GFR (Non-Af Amer) Random Glucose Calcium Total Bilirubin AST ALT Alkaline Phosphatase Troponin I NT-Pro-B Natriuret Pep 2020 H Total Protein Albumin Globulin Albumin/Globulin Ratio
[2017-11-28 17:47] VITALS: RESP 20
--- NOTE | 2017-11-28 18:34 | CP.PCM.CON ---
History of Present Illness - History of Present Illness History of Present Illness: I was asked to see patient by Dr Seals. Pateint has noischemic cardiomyopathy s/p AICD who presents with dsypnea. he was attempting to go to work when he felt short of breath. 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 Ofg note cardiac catheterization done in the last year was normal as per patient. Review of Systems - Constitutional Constitutional: absent: As Per HPI, Anorexia, Chills, Daytime Sleepiness, Excessive Sweating, Fatigue, Fever, Frequent Falls, Headache, Increased Appetite, Lethargy, Malaise, Night Sweats, Snoring, Sleep Apnea, Weight Gain, Weight Loss, Weakness, Other - EENT Eyes: absent: As Per HPI, Blind Spots, Blurred Vision, Change in Vision, Decreased Night Vision, Diplopia, Discharge, Dry Eye, Exophthalmos, Floaters, Irritation, Itchy Eyes, Loss of Peripheral Vision, Pain, Photophobia, Requires Corrective Lenses, Sees Flashes, Spots in Vision, Tunnel Vision, Other Visual Disturbances, Loss of Vision, Other Ears: absent: As Per HPI, Decreased Hearing, Ear Discharge, Ear Pain, Tinnitus, Abnormal Hearing, Disequilibrium, Dizziness, Other Nose/Mouth/Throat: absent: As Per HPI, Epistaxis, Nasal Congestion, Nasal Discharge, Nasal Obstruction, Nasal Trauma, Nose Pain, Post Nasal Drip, Sinus Pain, Sinus Pressure, Bleeding Gums, Change in Voice, Dental Pain, Dry Mouth, Dysphagia, Halitosis, Hoarsness, Lip Swelling, Mouth Lesions, Mouth Pain, Odynophagia, Sore Throat, Throat Swelling, Tongue Swelling, Facial Pain, Neck Pain, Neck Mass, Other - Cardiovascular Cardiovascular: absent: As Per HPI, Acrocyanosis, Chest Pain, Chest Pain at Rest, Chest Pain with Activity, Claudication, Diaphoresis, Dyspnea, Dyspnea on Exertion, Edema, Irregular Heart Rhythm, Pain Radiating to Arm/Neck/Jaw, Leg Edema, Leg Ulcers, Lightheadedness, Orthopnea, Palpitations, Paroxysmal Nocturnal Dyspnea, Pedal Edema, Radiating Pain, Rapid Heart Rate, Slow Heart Rate, Syncope, Other - Respiratory Respiratory: absent: As Per HPI, Cough, Dyspnea, Hemoptysis, Dyspnea on Exertion, Wheezing, Snoring, Stridor, Pain on Inspiration, Chest Congestion, Excessive Mucous Production, Change in Mucous Color, Pain with Coughing, Other - Gastrointestinal Gastrointestinal: absent: As Per HPI, Abdominal Pain, Belching, Bloating, Change in Bowel Habits, Change in Stool Character, Coffee Ground Emesis, Constipation, Cramping, Diarrhea, Dyspepsia, Dysphagia, Early Satiety, Excessive Flatus, Fecal Incontinence, Heartburn, Hematemesis, Hematochezia, Loose Stools, Melena, N ausea, Odynophagia, Temesmus, Vomiting, Other - Genitourinary Genitourinary: absent: As Per HPI, Change in Urinary Stream, Difficulty Urinating, Dysuria, Flank Pain, Hematuria, Pyuria, Nocturia, Urinary Incontinence, Urinary Frequency, Urinary Hesitance, Urinary Urgency, Voiding Freq/Small Amts, Freq UTI, Hx Renal/Bladder Calculi, Hx /Renal Surgery, Bladder Distension, Other - Musculoskeletal Musculoskeletal: absent: As Per HPI, Abnormal Gait, Arthralgias, Atrophy, Back Pain, Deformity, Joint Swelling, Limited Range of Motion, Loss of Height, Muscle Cramps, Muscle Weakness, Myalgias, Neck Pain, Numbness, Radiating Pain into Limb, Stiffness, Tingling, Other - Integumentary Integumentary: absent: As Per HPI, Acne, Alopecia, Bleeding Lesions, Change in Hair, Change in Nails, Change in Pigmentation, Changing Lesions, Dry Skin, Erythema, Furuncle, Hirsutism, Lesions, New Lesions, Non-Healing Lesions, Photosensitivity, Pruritus, Rash, Skin Pain, Skin Ulcer, Sores, Striae, Swelling, Unusual Bruising, Wounds, Jaundice, Other - Neurological Neurological: absent: As Per HPI, Abnormal Gait, Abnormal Hearing, Abnormal Movements, Abnormal Speech, Behavioral Changes, Burning Sensations, Confusion, Convulsions, Disequilibrium, Dizziness, Numbness, Focal Weakness, Frequent Falls, Headaches, Lack of Coordination, Loss of Vision, Memory Loss, Paresthesias, Radicular Pain, Restless Legs, Sensory Deficit, Syncope, Tingling, Tremor, Vertigo, Weakness, Other Visual Disturbances, Other - Psychiatric Psychiatric: absent: As Per HPI, Abnormal Sleep Pattern, Anhedonia, Anxiety, Auditory Hallucinations, Behavioral Changes, Change in Appetite, Change in Libido, Confusion, Depression, Difficulty Concentrating, Hallucinations, Homicidal Ideation, Hopelessness, Irritability, Memory Loss, Mood Swings, Panic Attacks, Paranoia, Suicidal Ideation, Visual Hallucinations, Tactile Hallucinations, Other - Endocrine Endocrine: absent: As Per HPI, Change in Body Appearance, Change in Libido, Cold Intolorance, Deepening of Voice, Excessive Sweating, Fatigue, Flushing, Heat Intolorance, Increase in Ring/Shoe/Hat Size, Palpitations, Polydipsia, Polyphagia, Polyuria, Other - Hematologic/Lymphatic Hematologic: absent: As Per HPI, Easy Bleeding, Easy Bruising, Lymphadenopathy, Other Past Patient History - Infectious Disease Hx of Infectious Diseases: None - Past Medical History & Family History Past Medical History?: Yes - Past Social History Smoking Status: Former Smoker - CARDIAC Hx Congestive Heart Failure: Yes (with low EF) Hx Hypercholesterolemia: Yes Hx Hypertension: Yes Hx Pacemaker: Yes (AICD) - PULMONARY Hx Asthma: Yes Hx Bronchitis: Yes Hx Chronic Obstructive Pulmonary Disease (COPD): Yes - NEUROLOGICAL Hx Neurological Disorder: No - HEENT Hx HEENT Problems: No - RENAL Hx Chronic Kidney Disease: No - ENDOCRINE/METABOLIC Hx Endocrine Disorders: No - HEMATOLOGICAL/ONCOLOGICAL Hx Blood Disorders: No - INTEGUMENTARY Hx Dermatological Problems: No - MUSCULOSKELETAL/RHEUMATOLOGICAL Hx Musculoskeletal Disorders: No Hx Falls: No - GASTROINTESTINAL Hx Gastrointestinal Disorders: No - GENITOURINARY/GYNECOLOGICAL Hx Genitourinary Disorders: No - PSYCHIATRIC Hx Bipolar Disorder: Yes Hx Depression: Yes Hx Substance Use: No - SURGICAL HISTORY Hx Surgeries: Yes Hx Orthopedic Surgery: Yes (RIGHT LEG) Other/Comment: PACEMAKER/DEFIB INSERTION - ANESTHESIA Hx Anesthesia: Yes Hx Anesthesia Reactions: No Hx Malignant Hyperthermia: No Meds Allergies/Adverse Reactions: Allergies Allergy/AdvReac Type Severity Reaction Status Date / Time No Known Allergies Allergy Verified 06/28/17 08:32 - Medications Medications: Current Medications Albuterol Sulfate (Albuterol 0.083% Inhal Alisha (2.5 Mg/3 Ml) Ud) 2.5 mg INH RTID [facility] Aspirin (Ecotrin) 81 mg PO DAILY [facility] Enoxaparin Sodium (Lovenox) 40 mg SC DAILY [facility] Escitalopram Oxalate (Lexapro) 10 mg PO DAILY [facility] Furosemide (Lasix) 40 mg IVP Q12 [facility] Lamotrigine (Lamictal) 25 mg PO QPM [facility] Lisinopril (Zestril) 2.5 mg PO DAILY [facility] Methylprednisolone (Solu-Medrol) 40 mg IVP Q8 [facility] Multivitamins (Hexavitamin) 1 tab PO DAILY [facility] Promethazine HCl (Phenergan Syrup) 6.25 mg PO Q6 [facility] Rosuvastatin Calcium (Crestor) 10 mg PO HS [facility] Thiamine HCl (Vitamin B1 Tab) 100 mg PO DAILY [facility] Physical Exam - Constitutional Appears: Non-toxic - Head Exam Head Exam: NORMAL INSPECTION - Eye Exam Eye Exam: Normal appearance - ENT Exam ENT Exam: Mucous Membranes Moist - Neck Exam Neck exam: Positive for: Normal Inspection - Respiratory Exam Respiratory Exam: NORMAL BREATHING PATTERN - Cardiovascular Exam Cardiovascular Exam: REGULAR RHYTHM - GI/Abdominal Exam GI & Abdominal Exam: Normal Bowel Sounds - Rectal Exam Rectal Exam: Deferred - Extremities Exam Extremities exam: Negative for: pedal edema - Back Exam Back exam: NORMAL INSPECTION - Neurological Exam Neurological exam: Alert, Oriented x3 - Psychiatric Exam Psychiatric exam: Normal Affect - Skin Skin Exam: Normal Color Results - Vital Signs Recent Vital Signs: Last Vital Signs Temp 98.1 F 11/28/17 17:46 Pulse 93 H 11/28/17 17:46 Resp 20 11/28/17 17:46 BP 121/75 11/28/17 17:46 Pulse Ox 96 11/28/17 17:46 - Labs Result Diagrams: 11/28/17 12:25 11/28/17 12:25 Labs: Laboratory Results - last 24 hr 11/28/17 11/28/17 11/28/17 12:25 12:25 12:25 WBC 7.3 RBC 3.94 L Hgb 12.3 Hct 36.5 MCV 92.6 MCH 31.3 H MCHC 33.8 RDW 15.3 H Plt Count 213 MPV 8.2 Neut % (Auto) 68.3 Lymph % (Auto) 18.8 L [place] % (Auto) 10.3 H Eos % (Auto) 1.7 Baso % (Auto) 0.9 Neut # (Auto) 5.0 Lymph # (Auto) 1.4 [place] # (Auto) 0.8 Eos # (Auto) 0.1 Baso # (Auto) 0.1 PT 14.5 H INR 1.3 APTT 35 H Sodium 140 Potassium 3.6 Chloride 101 Carbon Dioxide 27 Anion Gap 15 BUN 14 Creatinine 0.9 Est GFR ( Amer) > 60 Est GFR (Non-Af Amer) > 60 Random Glucose 89 Calcium 8.7 Total Bilirubin 1.5 H AST 64 H ALT 55 Alkaline Phosphatase 41 Troponin I 0.0390 NT-Pro-B Natriuret Pep Total Protein 6.3 Albumin 3.6 Globulin 2.6 Albumin/Globulin Ratio 1.4 11/28/17 13:57 WBC RBC Hgb Hct MCV MCH MCHC RDW Plt Count MPV Neut % (Auto) Lymph % (Auto) [place] % (Auto) Eos % (Auto) Baso % (Auto) Neut # (Auto) Lymph # (Auto) [place] # (Auto) Eos # (Auto) Baso # (Auto) PT INR APTT Sodium Potassium Chloride Carbon Dioxide Anion Gap BUN Creatinine Est GFR ( Amer) Est GFR (Non-Af Amer) Random Glucose Calcium Total Bilirubin AST ALT Alkaline Phosphatase Troponin I NT-Pro-B Natriuret Pep 2020 H Total Protein Albumin Globulin Albumin/Globulin Ratio - EKG Data EKG Interpreted by: Myself EKG shows normal: Sinus rhythm Assessment & Plan (1) CHF (congestive heart failure) Assessment and Plan: chronic. on approriate tehrapy. recommend troponin x 3. 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 Status: Acute
[2017-11-28] MEDS: Promethazine 6.25 MG/5 ML CUP PO SCH (19:27)
[2017-11-28] MEDS: Albuterol 0.083% Inhal Sol (2.5 mg/3 mL) UD INH SCH (20:03)
[2017-11-28] MEDS: MethylPREDNISolone 40 mg Vial IVP SCH (22:05)
[2017-11-28] MEDS: Oxycodone/Acetaminophen 5/325 mg Tab PO PRN (22:07)
[2017-11-29] MEDS ORDERED: Promethazine 6.25 MG/5 ML CUP PO SCH
[2017-11-29] MEDS: Promethazine 6.25 MG/5 ML CUP PO SCH ×4 (00:53→17:44)
[2017-11-29] MEDS: MethylPREDNISolone 40 mg Vial IVP SCH ×3 (06:56→21:47)
[2017-11-29] MEDS: Albuterol 0.083% Inhal Sol (2.5 mg/3 mL) UD INH SCH ×3 (07:49→20:05)
[2017-11-29] MEDS: Multiple Vitamins Tab PO SCH (10:41)
[2017-11-29] MEDS: Enoxaparin 40 mg Syringe SC SCH (10:41)
--- NOTE | 2017-11-29 13:21 | CARD ---
APPROVED REPORT Date of service: 11/28/2017 EKG Measurement Heart [id number] <Conclusion> Sinus rhythm with occasional premature ventricular and atrial complexes Left axis deviation Septal infarct, age undetermined Abnormal ECG
--- NOTE | 2017-11-29 15:30 | CP.PCM.PN ---
Subjective - Date & Time of Evaluation Date of Evaluation: 11/29/17 Time of Evaluation: 15:28 - Subjective Subjective: Patient is seen and examined Continues to report dyspnea No events noted Objective - Vital Signs/Intake and Output Vital Signs (last 24 hours): Temp Pulse Resp BP Pulse Ox 98.1 F 92 H 20 156/82 H 98 11/29/17 07:00 11/29/17 07:00 11/29/17 07:00 11/29/17 10:41 11/29/17 07:50 - Medications Medications: Current Medications Albuterol Sulfate (Albuterol 0.083% Inhal Alisha (2.5 Mg/3 Ml) Ud) 2.5 mg INH RTID [facility] Last Admin: 11/29/17 13:53 Dose: 2.5 mg Aspirin (Ecotrin) 81 mg PO DAILY [facility] Last Admin: 11/29/17 10:40 Dose: 81 mg Enoxaparin Sodium (Lovenox) 40 mg SC DAILY [facility] Last Admin: 11/29/17 10:41 Dose: 40 mg Escitalopram Oxalate (Lexapro) 10 mg PO DAILY [facility] Last Admin: 11/29/17 10:41 Dose: 10 mg Furosemide (Lasix) 40 mg IVP Q12 [facility] Last Admin: 11/29/17 10:41 Dose: 40 mg Lamotrigine (Lamictal) 25 mg PO QPM [facility] Last Admin: 11/28/17 19:27 Dose: 25 mg Lisinopril (Zestril) 2.5 mg PO DAILY [facility] Methylprednisolone (Solu-Medrol) 40 mg IVP Q8 [facility] Last Admin: 11/29/17 14:58 Dose: 40 mg Multivitamins (Hexavitamin) 1 tab PO DAILY [facility] Last Admin: 11/29/17 10:41 Dose: 1 tab Oxycodone/Acetaminophen (Percocet 5/325 Mg Tab) 1 tab PO Q6H PRN PRN Reason: Pain, severe (8-10) Stop: 12/01/17 20:35 Last Admin: 11/28/17 22:07 Dose: 1 tab Promethazine HCl (Phenergan Syrup) 6.25 mg PO Q6 [facility] Last Admin: 11/29/17 12:57 Dose: 6.25 mg Rosuvastatin Calcium (Crestor) 10 mg PO HS [facility] Last Admin: 11/28/17 22:05 Dose: 10 mg Thiamine HCl (Vitamin B1 Tab) 100 mg PO DAILY [facility] Last Admin: 11/29/17 10:40 Dose: 100 mg - Labs Labs: 11/28/17 12:25 11/28/17 12:25 PT 14.5 SECONDS (9.7-12.2) H 11/28/17 12:25 INR 1.3 11/28/17 12:25 APTT 35 SECONDS (21-34) H 11/28/17 12:25 - Head Exam Head Exam: NORMAL INSPECTION - Eye Exam Eye Exam: Normal appearance - ENT Exam ENT Exam: Mucous Membranes Moist - Respiratory Exam Respiratory Exam: Rhonchi - Cardiovascular Exam Cardiovascular Exam: REGULAR RHYTHM, +S1, +S2 - GI/Abdominal Exam GI & Abdominal Exam: Soft, Normal Bowel Sounds - Neurological Exam Neurological Exam: Alert, Oriented x3 - Psychiatric Exam Psychiatric exam: Normal Affect, Normal Mood Assessment and Plan (1) Asthma exacerbation Status: Acute (2) CHF exacerbation Status: Acute (3) Dyspnea Status: Acute - Assessment and Plan (Free Text) Plan: Improved wheezing today Continue IV methylprednisone Bronchodilators Lasix Rest as per orders DVT/GI prophylax
[2017-11-29] MEDS: Oxycodone/Acetaminophen 5/325 mg Tab PO PRN (19:49)
--- NOTE | 2017-11-29 21:15 | CP.PCM.PN ---
Subjective - Date & Time of Evaluation Date of Evaluation: 11/29/17 Time of Evaluation: 10:45 - Subjective Subjective: clinically same Objective - Vital Signs/Intake and Output Vital Signs (last 24 hours): Temp Pulse Resp BP Pulse Ox 98.5 F 100 H 20 131/85 98 11/29/17 15:25 11/29/17 17:15 11/29/17 15:25 11/29/17 15:25 11/29/17 17:15 - Medications Medications: Current Medications Albuterol Sulfate (Albuterol 0.083% Inhal Alisha (2.5 Mg/3 Ml) Ud) 2.5 mg INH RTID [facility] Last Admin: 11/29/17 20:05 Dose: 2.5 mg Aspirin (Ecotrin) 81 mg PO DAILY [facility] Last Admin: 11/29/17 10:40 Dose: 81 mg Enoxaparin Sodium (Lovenox) 40 mg SC DAILY [facility] Last Admin: 11/29/17 10:41 Dose: 40 mg Escitalopram Oxalate (Lexapro) 10 mg PO DAILY [facility] Last Admin: 11/29/17 10:41 Dose: 10 mg Furosemide (Lasix) 40 mg IVP Q12 [facility] Last Admin: 11/29/17 10:41 Dose: 40 mg Lamotrigine (Lamictal) 25 mg PO QPM [facility] Last Admin: 11/29/17 17:44 Dose: 25 mg Lisinopril (Zestril) 2.5 mg PO DAILY [facility] Methylprednisolone (Solu-Medrol) 40 mg IVP Q8 [facility] Last Admin: 11/29/17 14:58 Dose: 40 mg Multivitamins (Hexavitamin) 1 tab PO DAILY [facility] Last Admin: 11/29/17 10:41 Dose: 1 tab Oxycodone/Acetaminophen (Percocet 5/325 Mg Tab) 1 tab PO Q6H PRN PRN Reason: Pain, severe (8-10) Stop: 12/01/17 20:35 Last Admin: 11/29/17 19:49 Dose: 1 tab Promethazine HCl (Phenergan Syrup) 6.25 mg PO Q6 [facility] Last Admin: 11/29/17 17:44 Dose: 6.25 mg Rosuvastatin Calcium (Crestor) 10 mg PO HS [facility] Last Admin: 11/28/17 22:05 Dose: 10 mg Thiamine HCl (Vitamin B1 Tab) 100 mg PO DAILY [facility] Last Admin: 11/29/17 10:40 Dose: 100 mg - Labs Labs: 11/28/17 12:25 11/28/17 12:25 PT 14.5 SECONDS (9.7-12.2) H 11/28/17 12:25 INR 1.3 11/28/17 12:25 APTT 35 SECONDS (21-34) H 11/28/17 12:25
[2017-11-30] MEDS: Promethazine 6.25 MG/5 ML CUP PO SCH ×4 (00:41→17:39)
[2017-11-30] MEDS: MethylPREDNISolone 40 mg Vial IVP SCH ×3 (06:09→22:02)
[2017-11-30] MEDS: Albuterol 0.083% Inhal Sol (2.5 mg/3 mL) UD INH SCH ×3 (07:31→20:25)
--- NOTE | 2017-11-30 08:41 | CP.PCM.PN ---
Subjective - Date & Time of Evaluation Date of Evaluation: 11/30/17 Time of Evaluation: 08:00 - Subjective Subjective: House doctor note. Paged regarding symptomatic chest pain by nurse Avelar. Patient was seen at bedside. States had a sharp L sided chest pain that radiated to AICD and lasted for 2 minutes and now resolved at time of exam. Associated with diaphoresis and palpitations. Patient notes he awoke SOB today from his COPD and had a nebulizer treatment at 7:30am today. Pain is reproducible on palpation. EKG and CED panel were ordered. Dr. Webb was called and was sent patient's EKG, will see patient. Nurse Avelar to contact Dr. Seals. Objective - Vital Signs/Intake and Output Vital Signs (last 24 hours): Temp Pulse Resp BP Pulse Ox 98.0 F 90 20 122/84 94 L 11/30/17 07:20 11/30/17 07:20 11/30/17 07:20 11/30/17 07:20 11/29/17 23:15 - Medications Medications: Current Medications Albuterol Sulfate (Albuterol 0.083% Inhal Alisha (2.5 Mg/3 Ml) Ud) 2.5 mg INH RTID [facility] Last Admin: 11/30/17 07:31 Dose: 2.5 mg Aspirin (Ecotrin) 81 mg PO DAILY [facility] Last Admin: 11/29/17 10:40 Dose: 81 mg Enoxaparin Sodium (Lovenox) 40 mg SC DAILY [facility] Last Admin: 11/29/17 10:41 Dose: 40 mg Escitalopram Oxalate (Lexapro) 10 mg PO DAILY [facility] Last Admin: 11/29/17 10:41 Dose: 10 mg Furosemide (Lasix) 40 mg IVP Q12 [facility] Last Admin: 11/29/17 21:44 Dose: 40 mg Lamotrigine (Lamictal) 25 mg PO QPM [facility] Last Admin: 11/29/17 17:44 Dose: 25 mg Lisinopril (Zestril) 2.5 mg PO DAILY [facility] Methylprednisolone (Solu-Medrol) 40 mg IVP Q8 [facility] Last Admin: 11/30/17 06:09 Dose: 40 mg Multivitamins (Hexavitamin) 1 tab PO DAILY [facility] Last Admin: 11/29/17 10:41 Dose: 1 tab Oxycodone/Acetaminophen (Percocet 5/325 Mg Tab) 1 tab PO Q6H PRN PRN Reason: Pain, severe (8-10) Stop: 12/01/17 20:35 Last Admin: 11/29/17 19:49 Dose: 1 tab Promethazine HCl (Phenergan Syrup) 6.25 mg PO Q6 [facility] Last Admin: 11/30/17 06:09 Dose: 6.25 mg Rosuvastatin Calcium (Crestor) 10 mg PO HS [facility] Last Admin: 11/29/17 21:43 Dose: 10 mg Thiamine HCl (Vitamin B1 Tab) 100 mg PO DAILY [facility] Last Admin: 11/29/17 10:40 Dose: 100 mg - Labs Labs: 11/28/17 12:25 11/28/17 12:25 PT 14.5 SECONDS (9.7-12.2) H 11/28/17 12:25 INR 1.3 11/28/17 12:25 APTT 35 SECONDS (21-34) H 11/28/17 12:25
--- NOTE | 2017-11-30 09:32 | CP.PCM.PN ---
Subjective - Date & Time of Evaluation Date of Evaluation: 11/30/17 Time of Evaluation: 09:20 - Subjective Subjective: patient had an episode of chest pain. He describes sharp pain at rest. Objective - Vital Signs/Intake and Output Vital Signs (last 24 hours): Temp Pulse Resp BP Pulse Ox 98.0 F 90 20 122/84 97 11/30/17 07:20 11/30/17 07:20 11/30/17 07:20 11/30/17 07:20 11/30/17 07:45 - Medications Medications: Current Medications Albuterol Sulfate (Albuterol 0.083% Inhal Alisha (2.5 Mg/3 Ml) Ud) 2.5 mg INH RTID [facility] Last Admin: 11/30/17 07:31 Dose: 2.5 mg Aspirin (Ecotrin) 81 mg PO DAILY [facility] Last Admin: 11/29/17 10:40 Dose: 81 mg Enoxaparin Sodium (Lovenox) 40 mg SC DAILY [facility] Last Admin: 11/29/17 10:41 Dose: 40 mg Escitalopram Oxalate (Lexapro) 10 mg PO DAILY [facility] Last Admin: 11/29/17 10:41 Dose: 10 mg Furosemide (Lasix) 40 mg IVP Q12 [facility] Last Admin: 11/29/17 21:44 Dose: 40 mg Lamotrigine (Lamictal) 25 mg PO QPM [facility] Last Admin: 11/29/17 17:44 Dose: 25 mg Lisinopril (Zestril) 2.5 mg PO DAILY [facility] Methylprednisolone (Solu-Medrol) 40 mg IVP Q8 [facility] Last Admin: 11/30/17 06:09 Dose: 40 mg Metoprolol Succinate (Toprol Xl) 25 mg PO DAILY [facility] Multivitamins (Hexavitamin) 1 tab PO DAILY [facility] Last Admin: 11/29/17 10:41 Dose: 1 tab Oxycodone/Acetaminophen (Percocet 5/325 Mg Tab) 1 tab PO Q6H PRN PRN Reason: Pain, severe (8-10) Stop: 12/01/17 20:35 Last Admin: 11/29/17 19:49 Dose: 1 tab Promethazine HCl (Phenergan Syrup) 6.25 mg PO Q6 [facility] Last Admin: 11/30/17 06:09 Dose: 6.25 mg Rosuvastatin Calcium (Crestor) 10 mg PO HS [facility] Last Admin: 11/29/17 21:43 Dose: 10 mg Thiamine HCl (Vitamin B1 Tab) 100 mg PO DAILY [facility] Last Admin: 11/29/17 10:40 Dose: 100 mg - Labs Labs: 11/28/17 12:25 11/28/17 12:25 PT 14.5 SECONDS (9.7-12.2) H 11/28/17 12:25 INR 1.3 11/28/17 12:25 APTT 35 SECONDS (21-34) H 11/28/17 12:25 - Constitutional Appears: Non-toxic - Head Exam Head Exam: NORMAL INSPECTION - Eye Exam Eye Exam: Normal appearance - ENT Exam ENT Exam: Mucous Membranes Moist - Neck Exam Neck Exam: Full ROM - Respiratory Exam Respiratory Exam: NORMAL BREATHING PATTERN - Cardiovascular Exam Cardiovascular Exam: REGULAR RHYTHM - GI/Abdominal Exam GI & Abdominal Exam: Normal Bowel Sounds - Rectal Exam Rectal Exam: Deferred - Extremities Exam Extremities Exam: Pedal Edema - Back Exam Back Exam: NORMAL INSPECTION - Neurological Exam Neurological Exam: Alert - Psychiatric Exam Psychiatric exam: Normal Affect - Skin Skin Exam: Normal Color Assessment and Plan (1) CHF (congestive heart failure) Assessment & Plan: I will add betablocker therapy. continue lasix Status: Acute (2) Chest pain Assessment & Plan: cardaic cath performed this year reveasl no no CAD. No EKG abnormalities noted with chest pain. recommend medical therapy with betablocker. can add Imdur 30 mg daily Status: Acute
[2017-11-30 09:35] LABS: CK-MB 1.2 ng/mL (0.0-3.38); TROPONIN I 0.029 ng/mL (0.00-0.120)
[2017-11-30] MEDS: Metoprolol Succinate 25 mg XL Tab PO SCH (11:03)
[2017-11-30] MEDS: Multiple Vitamins Tab PO SCH (11:03)
[2017-11-30] MEDS: Enoxaparin 40 mg Syringe SC SCH (11:05)
[2017-11-30] MEDS: Oxycodone/Acetaminophen 5/325 mg Tab PO PRN ×2 (11:12→17:50)
--- NOTE | 2017-11-30 14:41 | CP.PCM.PN ---
Subjective - Date & Time of Evaluation Date of Evaluation: 11/30/17 Time of Evaluation: 14:41 Objective - Vital Signs/Intake and Output Vital Signs (last 24 hours): Temp Pulse Resp BP Pulse Ox 98.0 F 90 20 120/84 97 11/30/17 07:20 11/30/17 07:20 11/30/17 07:20 11/30/17 11:04 11/30/17 07:45 - Medications Medications: Current Medications Albuterol Sulfate (Albuterol 0.083% Inhal Alisha (2.5 Mg/3 Ml) Ud) 2.5 mg INH RTID [facility] Last Admin: 11/30/17 13:15 Dose: 2.5 mg Aspirin (Ecotrin) 81 mg PO DAILY [facility] Last Admin: 11/30/17 11:03 Dose: 81 mg Enoxaparin Sodium (Lovenox) 40 mg SC DAILY [facility] Last Admin: 11/30/17 11:05 Dose: 40 mg Escitalopram Oxalate (Lexapro) 10 mg PO DAILY [facility] Last Admin: 11/30/17 11:04 Dose: 10 mg Furosemide (Lasix) 40 mg IVP Q12 [facility] Last Admin: 11/30/17 11:04 Dose: 40 mg Lamotrigine (Lamictal) 25 mg PO QPM [facility] Last Admin: 11/29/17 17:44 Dose: 25 mg Lisinopril (Zestril) 2.5 mg PO DAILY [facility] Last Admin: 11/30/17 11:04 Dose: 2.5 mg Methylprednisolone (Solu-Medrol) 40 mg IVP Q8 [facility] Last Admin: 11/30/17 06:09 Dose: 40 mg Metoprolol Succinate (Toprol Xl) 25 mg PO DAILY [facility] Last Admin: 11/30/17 11:03 Dose: 25 mg Multivitamins (Hexavitamin) 1 tab PO DAILY [facility] Last Admin: 11/30/17 11:03 Dose: 1 tab Oxycodone/Acetaminophen (Percocet 5/325 Mg Tab) 1 tab PO Q6H PRN PRN Reason: Pain, severe (8-10) Stop: 12/01/17 20:35 Last Admin: 11/30/17 11:12 Dose: 1 tab Promethazine HCl (Phenergan Syrup) 6.25 mg PO Q6 [facility] Last Admin: 11/30/17 06:09 Dose: 6.25 mg Rosuvastatin Calcium (Crestor) 10 mg PO [facility] Last Admin: 11/29/17 21:43 Dose: 10 mg Thiamine HCl (Vitamin B1 Tab) 100 mg PO DAILY [facility] Last Admin: 11/29/17 10:40 Dose: 100 mg - Labs Labs: 11/28/17 12:25 11/28/17 12:25 PT 14.5 SECONDS (9.7-12.2) H 11/28/17 12:25 INR 1.3 11/28/17 12:25 APTT 35 SECONDS (21-34) H 11/28/17 12:25 Assessment and Plan (1) Asthma exacerbation Status: Acute (2) CHF exacerbation Status: Acute (3) Dyspnea Status: Acute
--- NOTE | 2017-11-30 19:53 | CP.PCM.PN ---
Subjective - Date & Time of Evaluation Date of Evaluation: 11/30/17 Time of Evaluation: 09:45 - Subjective Subjective: clinically same Objective - Vital Signs/Intake and Output Vital Signs (last 24 hours): Temp Pulse Resp BP Pulse Ox 98.0 F 106 H 20 120/84 97 11/30/17 07:20 11/30/17 19:22 11/30/17 07:20 11/30/17 11:04 11/30/17 07:45 - Medications Medications: Current Medications Albuterol Sulfate (Albuterol 0.083% Inhal Alisha (2.5 Mg/3 Ml) Ud) 2.5 mg INH RTID [facility] Last Admin: 11/30/17 13:15 Dose: 2.5 mg Aspirin (Ecotrin) 81 mg PO DAILY [facility] Last Admin: 11/30/17 11:03 Dose: 81 mg Enoxaparin Sodium (Lovenox) 40 mg SC DAILY [facility] Last Admin: 11/30/17 11:05 Dose: 40 mg Escitalopram Oxalate (Lexapro) 10 mg PO DAILY [facility] Last Admin: 11/30/17 11:04 Dose: 10 mg Furosemide (Lasix) 40 mg IVP Q12 [facility] Last Admin: 11/30/17 11:04 Dose: 40 mg Lamotrigine (Lamictal) 25 mg PO QPM [facility] Last Admin: 11/30/17 17:39 Dose: 25 mg Lisinopril (Zestril) 2.5 mg PO DAILY [facility] Last Admin: 11/30/17 11:04 Dose: 2.5 mg Methylprednisolone (Solu-Medrol) 40 mg IVP Q8 [facility] Last Admin: 11/30/17 14:57 Dose: 40 mg Metoprolol Succinate (Toprol Xl) 25 mg PO DAILY [facility] Last Admin: 11/30/17 11:03 Dose: 25 mg Multivitamins (Hexavitamin) 1 tab PO DAILY [facility] Last Admin: 11/30/17 11:03 Dose: 1 tab Oxycodone/Acetaminophen (Percocet 5/325 Mg Tab) 1 tab PO Q6H PRN PRN Reason: Pain, severe (8-10) Stop: 12/01/17 20:35 Last Admin: 11/30/17 17:50 Dose: 1 tab Promethazine HCl (Phenergan Syrup) 6.25 mg PO Q6 [facility] Last Admin: 11/30/17 17:39 Dose: 6.25 mg Rosuvastatin Calcium (Crestor) 10 mg PO HS [facility] Last Admin: 11/29/17 21:43 Dose: 10 mg Thiamine HCl (Vitamin B1 Tab) 100 mg PO DAILY [facility] Last Admin: 11/30/17 11:00 Dose: 100 mg - Labs Labs: 11/28/17 12:25 11/28/17 12:25 PT 14.5 SECONDS (9.7-12.2) H 11/28/17 12:25 INR 1.3 11/28/17 12:25 APTT 35 SECONDS (21-34) H 11/28/17 12:25 - Constitutional Appears: Well - Head Exam Head Exam: ATRAUMATIC, NORMAL INSPECTION, NORMOCEPHALIC - Eye Exam Eye Exam: EOMI, Normal appearance, PERRL Pupil Exam: NORMAL ACCOMODATION, PERRL - ENT Exam ENT Exam: Mucous Membranes Moist, Normal Exam - Neck Exam Neck Exam: Full ROM, Normal Inspection. absent: Lymphadenopathy - Respiratory Exam Respiratory Exam: Decreased Breath Sounds - Cardiovascular Exam Cardiovascular Exam: REGULAR RHYTHM, +S1, +S2 - GI/Abdominal Exam GI & Abdominal Exam: Soft, Diminished Bowel Sounds - Rectal Exam Rectal Exam: Deferred
[2017-12-01] MEDS: MethylPREDNISolone 40 mg Vial IVP SCH ×2 (05:33→13:56)
[2017-12-01] MEDS: Promethazine 6.25 MG/5 ML CUP PO SCH ×3 (05:33→11:41)
[2017-12-01] MEDS: Oxycodone/Acetaminophen 5/325 mg Tab PO PRN (05:38)
[2017-12-01 08:28] VITALS: TEMP 97.5; O2SAT 94
[2017-12-01] MEDS: Albuterol 0.083% Inhal Sol (2.5 mg/3 mL) UD INH SCH (09:00)
[2017-12-01] MEDS: Enoxaparin 40 mg Syringe SC SCH (10:32)
[2017-12-01] MEDS: Multiple Vitamins Tab PO SCH (10:32)
[2017-12-01] MEDS: Metoprolol Succinate 25 mg XL Tab PO SCH (10:32)
[2017-12-01 10:34] VITALS: BP 123/73
[2017-12-01 14:07] VITALS: PULSE 90
--- NOTE | 2017-12-01 14:33 | CP.PCM.PN ---
Subjective - Date & Time of Evaluation Date of Evaluation: 12/01/17 Time of Evaluation: 14:33 - Subjective Subjective: PT CLEARED FOR D/C PER DR. Brant RUSSELL. DISCUSSED RX AND D/C PLAN WITH THE PT. PT VERBALIZES UNDERSTANDING. SEE BELOW FOR D/C INSTRUCTIONS PROVIDED TO THE PT. NO FURTHER ORDERS. -FOLLOW UP WITH DR. RUSSELL OR WITH YOUR PRIMARY DOCTOR IN THE OFFICE WITHIN 5-7 DAYS---CALL FOR APPOINTMENT TIME. -FOLLOW UP WITH DR. CUNNINGHAM AND DR. CHRISTOPHER IN THE OFFICE WITHIN 2-3 WEEKS---CALL FOR APPOINTMENT TIME. -CONTINUE HOME MEDICATIONS USUAL; PLEASE NOTE SOME CHANGES BELOW: -REFILLS HAVE BEEN SENT TO YOUR PHARMACY. YOU HAVE BEEN PRESCRIBED A REFILL FOR ENDOCET. -STOP TAKING ENTRESTO; YOU HAVE BEEN PRESCRIBED METOPROLOL INSTEAD PER DR. SHAQ JACOBS RECOMMENDATIONS---TAKE 1 TABLET ONCE A DAY. -STOP TAKING BUMEX; YOU HAVE PRESCRIBED LASIX INSTEAD---TAKE 1 TABLET OF LASIX TWICE A DAY (MORNING AND EVENING). -FOR YOUR BREATHING, YOU HAVE BEEN PRESCRIBED PREDNISONE (STEROIDS)---TAKE 2 TABLETS BY MOUTH ONCE A DAY FOR 3 DAYS THEN TAKE 1 TABLET BY MOUTH ONCE A DAY FOR 3 DAYS. -FOR FURTHER QUESTIONS OR CONCERNS, CONTACT DR. RUSSELL OR YOUR PRIMARY DOCTOR. Objective - Vital Signs/Intake and Output Vital Signs (last 24 hours): Temp Pulse Resp BP Pulse Ox 97.5 F L 90 20 123/73 94 L 12/01/17 07:00 12/01/17 14:00 12/01/17 07:00 12/01/17 10:33 12/01/17 07:00 Intake and Output: 12/01/17 12/01/17 06:59 18:59 Output Total 400 Balance -400 - Medications Medications: Current Medications Albuterol Sulfate (Albuterol 0.083% Inhal Alisha (2.5 Mg/3 Ml) Ud) 2.5 mg INH RTID [facility] Last Admin: 12/01/17 09:00 Dose: 2.5 mg Aspirin (Ecotrin) 81 mg PO DAILY [facility] Last Admin: 12/01/17 10:32 Dose: 81 mg Enoxaparin Sodium (Lovenox) 40 mg SC DAILY [facility] Last Admin: 12/01/17 10:32 Dose: 40 mg Escitalopram Oxalate (Lexapro) 10 mg PO DAILY [facility] Last Admin: 12/01/17 10:32 Dose: 10 mg Furosemide (Lasix) 40 mg IVP Q12 [facility] Last Admin: 12/01/17 10:33 Dose: 40 mg Lamotrigine (Lamictal) 25 mg PO QPM [facility] Last Admin: 11/30/17 17:39 Dose: 25 mg Lisinopril (Zestril) 2.5 mg PO DAILY [facility] Last Admin: 12/01/17 10:32 Dose: 2.5 mg Methylprednisolone (Solu-Medrol) 40 mg IVP Q8 [facility] Last Admin: 12/01/17 13:56 Dose: 40 mg Metoprolol Succinate (Toprol Xl) 25 mg PO DAILY [facility] Last Admin: 12/01/17 10:32 Dose: 25 mg Multivitamins (Hexavitamin) 1 tab PO DAILY [facility] Last Admin: 12/01/17 10:32 Dose: 1 tab Oxycodone/Acetaminophen (Percocet 5/325 Mg Tab) 1 tab PO Q6H PRN PRN Reason: Pain, severe (8-10) Stop: 12/01/17 20:35 Last Admin: 12/01/17 05:38 Dose: 1 tab Promethazine HCl (Phenergan Syrup) 6.25 mg PO Q6 [facility] Last Admin: 12/01/17 11:41 Dose: 6.25 mg Rosuvastatin Calcium (Crestor) 10 mg PO HS [facility] Last Admin: 11/30/17 22:03 Dose: 10 mg Thiamine HCl (Vitamin B1 Tab) 100 mg PO DAILY [facility] Last Admin: 12/01/17 10:33 Dose: 100 mg - Labs Labs: 11/28/17 12:25 11/28/17 12:25 PT 14.5 SECONDS (9.7-12.2) H 11/28/17 12:25 INR 1.3 11/28/17 12:25 APTT 35 SECONDS (21-34) H 11/28/17 12:25
--- NOTE | 2017-12-01 14:51 | CP.PCM.PN ---
Subjective - Date & Time of Evaluation Date of Evaluation: 12/01/17 Time of Evaluation: 11:00 - Subjective Subjective: clinically same Objective - Vital Signs/Intake and Output Vital Signs (last 24 hours): Temp Pulse Resp BP Pulse Ox 97.5 F L 90 20 123/73 94 L 12/01/17 07:00 12/01/17 14:00 12/01/17 07:00 12/01/17 10:33 12/01/17 07:00 Intake and Output: 12/01/17 12/01/17 06:59 18:59 Output Total 400 Balance -400 - Medications Medications: Current Medications Albuterol Sulfate (Albuterol 0.083% Inhal Alisha (2.5 Mg/3 Ml) Ud) 2.5 mg INH RTID [facility] Last Admin: 12/01/17 09:00 Dose: 2.5 mg Aspirin (Ecotrin) 81 mg PO DAILY [facility] Last Admin: 12/01/17 10:32 Dose: 81 mg Enoxaparin Sodium (Lovenox) 40 mg SC DAILY [facility] Last Admin: 12/01/17 10:32 Dose: 40 mg Escitalopram Oxalate (Lexapro) 10 mg PO DAILY [facility] Last Admin: 12/01/17 10:32 Dose: 10 mg Furosemide (Lasix) 40 mg IVP Q12 [facility] Last Admin: 12/01/17 10:33 Dose: 40 mg Lamotrigine (Lamictal) 25 mg PO QPM [facility] Last Admin: 11/30/17 17:39 Dose: 25 mg Lisinopril (Zestril) 2.5 mg PO DAILY [facility] Last Admin: 12/01/17 10:32 Dose: 2.5 mg Methylprednisolone (Solu-Medrol) 40 mg IVP Q8 [facility] Last Admin: 12/01/17 13:56 Dose: 40 mg Metoprolol Succinate (Toprol Xl) 25 mg PO DAILY [facility] Last Admin: 12/01/17 10:32 Dose: 25 mg Multivitamins (Hexavitamin) 1 tab PO DAILY [facility] Last Admin: 12/01/17 10:32 Dose: 1 tab Oxycodone/Acetaminophen (Percocet 5/325 Mg Tab) 1 tab PO Q6H PRN PRN Reason: Pain, severe (8-10) Stop: 12/01/17 20:35 Last Admin: 12/01/17 05:38 Dose: 1 tab Promethazine HCl (Phenergan Syrup) 6.25 mg PO Q6 [facility] Last Admin: 12/01/17 11:41 Dose: 6.25 mg Rosuvastatin Calcium (Crestor) 10 mg PO HS [facility] Last Admin: 11/30/17 22:03 Dose: 10 mg Thiamine HCl (Vitamin B1 Tab) 100 mg PO DAILY [facility] Last Admin: 12/01/17 10:33 Dose: 100 mg - Labs Labs: 11/28/17 12:25 11/28/17 12:25 PT 14.5 SECONDS (9.7-12.2) H 11/28/17 12:25 INR 1.3 11/28/17 12:25 APTT 35 SECONDS (21-34) H 11/28/17 12:25 - Constitutional Appears: Well - Head Exam Head Exam: ATRAUMATIC, NORMAL INSPECTION, NORMOCEPHALIC - Eye Exam Eye Exam: EOMI, Normal appearance, PERRL Pupil Exam: NORMAL ACCOMODATION, PERRL - ENT Exam ENT Exam: Mucous Membranes Moist, Normal Exam - Neck Exam Neck Exam: Full ROM, Normal Inspection. absent: Lymphadenopathy - Respiratory Exam Respiratory Exam: Decreased Breath Sounds - Cardiovascular Exam Cardiovascular Exam: REGULAR RHYTHM, +S1, +S2 - GI/Abdominal Exam GI & Abdominal Exam: Soft, Diminished Bowel Sounds - Rectal Exam Rectal Exam: Deferred
== END 2017-12-01 15:15 | disposition home or self-care (01) ==
LOC: C.ER 11:28 → C.9E 13:40 → C.6T 16:33
PROVIDERS: ADMIT Internal Medicine Nephrology; ATTEND Internal Medicine Nephrology
DX: I20.0 Unstable angina (principal); R07.9 Chest pain, unspecified; R06.00 Dyspnea, unspecified; J45.901 Unspecified asthma with (acute) exacerbation; F31.9 Bipolar disorder, unspecified; I11.0 Hypertensive heart disease with heart failure; E78.00 Pure hypercholesterolemia, unspecified; Z95.0 Presence of cardiac pacemaker; Z95.810 Presence of automatic (implantable) cardiac defibrillator; Z87.891 Personal history of nicotine dependence
CPT/HCPCS: 36415; 71045; 80053; 82948; 83880; 84484; 85025; 85610; 85730; 93005; 94640; 94760; 96372; 96374; 96375; 96376; 99285; G0378; J1650; J1940; J2270; J2405; J2920